=== PATIENT | male | born 1965 | race Caucasian/White ===

== ENCOUNTER 2019-05-05 11:55 | Inpatient (IN) | payer MEDICARE, MEDICAID ==
[~2019-05-05 11:55] MED LIST: Acetaminophen TAB* 325 MG PO ONE; Buffered Lidocaine 1% SYRIN* 1 ML/SYRINGE INTRADERM ONE; Lactated Ringers 1000 ML Bag* 1,000 ML IV SCH
[2019-05-05] MEDS ORDERED: Clindamycin 900 MG/D5W BAG(*) 900 MG/50 ML BAG IVPB ONE (12:50)
[2019-05-05] MEDS ORDERED: Acetaminophen TAB* 325 MG ONE (12:50)
[2019-05-05] MEDS ORDERED: fentaNYL* 50 MCG/ML 5 ML VIAL (250 MCG VIAL) ONE (13:20)
[2019-05-05] MEDS ORDERED: Midazolam* 1 MG/ML 2 ML VIAL (2 MG) ONE (13:20)
[2019-05-05] MEDS ORDERED: Propofol* 10 MG/ML 20 ML BTL ONE (13:21)
[2019-05-05] MEDS ORDERED: Lidocaine 2% PF * 5 ML VIAL ONE (13:21)
[2019-05-05] MEDS ORDERED: Rocuronium* 10 MG/ML VIAL ONE (13:28)
[2019-05-05] MEDS ORDERED: Naloxone* 0.4 MG/ML 1 ML VIAL IV PRN (13:33)
[2019-05-05] MEDS ORDERED: PROCHLORPERAZINE INJ 5 MG/ML 2 ML VIAL IV PRN (13:33)
[2019-05-05] MEDS ORDERED: DiMENhydriNATE IV* 50 MG/ML VIAL IV PUSH PRN (13:33)
[2019-05-05] MEDS ORDERED: oxyCODONE TAB* 5 MG TAB PO PRN (13:33)
[2019-05-05] MEDS ORDERED: diPHENhydraMINE IV* 50 MG/ML 1 ml VIAL (BENADRYL) IV PRN ×2 (13:33→16:17)
[2019-05-05] MEDS ORDERED: ROPIVACAINE 5 MG/ML 30 ML BTL (0.5%) ONE (14:08)
[2019-05-05] MEDS ORDERED: Hydrocortisone INJ* 100 MG/2 ML VIAL (in pyxis) ONE (14:57)
[2019-05-05] MEDS ORDERED: EPHEDrine (Pressors)* 50 MG/ML VIAL ONE (15:18)
[2019-05-05] MEDS ORDERED: Glycopyrrolate IV* 0.2 MG/ML 1 ML VIAL ONE (15:54)
[2019-05-05] MEDS ORDERED: Neostigmine Methylsulfate* 3 MG/3 ML SYRINGE ONE (15:54)
[2019-05-05] MEDS ORDERED: Ondansetron INJ* 2 MG/ML VIAL ONE (15:54)
[2019-05-05] MEDS ORDERED: Ondansetron INJ* 2 MG/ML VIAL IV PRN (16:17)
[2019-05-05] MEDS ORDERED: Polyethylene Glycol 3350* 17 GM PACKET PO PRN (16:17)
[2019-05-05] MEDS ORDERED: oxyCODONE/Acetamin 5/325 MG* TAB PO PRN (16:17)
[2019-05-05] MEDS ORDERED: diPHENhydraMINE PO* 25 MG PO PRN (16:17)
[2019-05-05] MEDS ORDERED: HYDROmorphone INJ1* 1 MG/ML SYRINGE ONE (16:17)
[2019-05-05] MEDS ORDERED: Magnesium Hydroxide LIQ* 30 ML UDC PO PRN (16:17)
[2019-05-05] MEDS ORDERED: Ondansetron ODT TAB* 4 MG PO PRN (16:17)
[2019-05-05] MEDS: HYDROmorphone INJ1* 1 MG/ML SYRINGE IV PRN ×5 (16:19→16:47)
[2019-05-05] MEDS ORDERED: Cetirizine* 10 MG TAB PO PRN (16:31)
[2019-05-05] MEDS ORDERED: Albuterol HFA INHALER* 8 gm MDI INH PRN (16:31)
[2019-05-05] MEDS ORDERED: Ketorolac INJ* 30 MG/ML 1 ML VIAL ONE (16:34)
[2019-05-05] MEDS ORDERED: Ketorolac INJ* 15 MG/ML 1 ML VIAL IV PUSH ONE (17:00)
[2019-05-05] MEDS: Lactated Ringers 1000 ML Bag* 1,000 ML IV SCH (17:42)
[2019-05-05] MEDS: traMADol TAB* 50 MG PO PRN (17:52)
[2019-05-05] MEDS: clonazePAM TAB(*) 0.5 MG PO SCH (19:34)
[2019-05-05] MEDS: Docusate CAP* 100 MG PO SCH (19:34)
[2019-05-05] MEDS: oxyCODONE/Acetamin 5/325 MG* TAB PO PRN ×2 (19:34→23:52)
[2019-05-05] MEDS: Magnesium Hydroxide LIQ* 30 ML UDC PO SCH (19:35)
[2019-05-05] MEDS: Acetaminophen TAB* 325 MG PO SCH (21:47)
[2019-05-05] MEDS: Clindamycin 600 MG/D5W BAG(*) 600 MG/50 ML BAG IV SCH (22:21)
--- NOTE | 2019-05-05 23:17 | OP ---
DATE OF OPERATION: 05/05/19 - ROOM #341 DATE OF : 63 SURGEON: Memo Sanchez MD RADIOTELEGRAPH OPERATOR: LAQUITA Swartz. A physician assistant gm of content & delivery was required for the length of the procedure for assistance with patient positioning, retraction, instrumentation, and closure. ANESTHESIOLOGIST: Dr. Alyce Flores. ANESTHESIA: General anesthesia, popliteal block regional anesthesia. PRE-OP DIAGNOSIS: Right Achilles tendon rupture, subacute. POST-OP DIAGNOSIS: Right Achilles tendon rupture, subacute. OPERATIVE PROCEDURE: 1. Right open Achilles tendon repair. 2. Right plantaris tendon tenodesis. POSITIONING: Prone. ANTIBIOTICS: Clindamycin 900 mg IV. AUMD-WT-SNCX TIME: 60 minutes. TOURNIQUET TIME: 69 minutes at 300 mmHg, right proximal thigh. SPECIMEN: None. COMPLICATIONS: None. IMPLANTS: None. ESTIMATED BLOOD LOSS: Minimal. INDICATIONS FOR PROCEDURE: The patient is a 53-year-old man with ankylosing spondylitis who unfortunately has recently sustained bilateral Achilles tendon ruptures. The patient had a left Achilles tendon rupture on 03/20/19. He underwent surgery for that injury on 04/06/19. The patient then injured himself on 04/10/19 injuring his right ankle, contralateral. I saw him in clinic on 04/12/19. I suspected an Achilles tendon rupture. This was confirmed with advanced imaging. I wanted to wait to do this procedure until the patient was weightbearing through the left lower extremity, which is approximately 4 weeks postoperatively. The patient has been in a boot and presents for right ankle surgery today. Discussed risks and potential complications including wound breakdown, wound infection, tendon re-rupture. DESCRIPTION OF PROCEDURE: In preoperative holding, the patient signed a written consent. Operative extremity was marked in preoperative holding. The patient's nonoperative left ankle was placed in a toe boot, or maintained in that. The patient had a popliteal nerve block, regional done by Anesthesia in the preoperative holding. The patient was taken back to the operating room and placed supine on the stretcher. The patient was sedated and intubated. The patient was converted to a prone position on the operating room table. The patient's axillae were both free. Much padding underneath the patient along the length of the body. Tourniquet was placed on the right proximal thigh. The right lower extremity was prepped and draped. Surgical time-out performed. Esmarch was planned and the tourniquet was elevated. I felt at the point of the Achilles tendon rupture through the skin. I made a longitudinal incision, approximately 10 cm long, just along the medial aspect of the Achilles tendon. I dissected down to the peritenon. Incised the peritenon longitudinally. I dissected to the Achilles tendon rupture site. Interestingly and not surprisingly, it had started to heal. There was much scar tissue. It was essentially healing in a lengthened position with the ends of the Achilles retracted significantly and scar tissue interposed. I debrided some scar tissue. I determined the appropriate length of the tendon to connect the two ends of tissue and decided that this could be brought together in approximately 20 degrees of plantar flexion. I placed Krackow stitches using FiberWire #2 suture. I tied 2 knots bringing together these sutures. This left the tiniest of gaps between the tendon, but I did not want to tighten any more for fear of some difficulty with closure. I used a wrap of muscle and scar tissue and wrapped that around that small gap, which filled it and nicely made it tubularized as well. I used a free needle to place horizontal mattress stitches using each of those FiberWire #2 suture pairs, which had the effect of bearing the knots. I cut those sutures. I placed approximately 5 horizontal mattress stitches using Vicryl 0 suture as well, which helped to further tubularize and supplement the repair. It was nice and sound with the plantar flexed ankle position of approximately 20 degrees. Plantaris tendon was present. I decided to enhance the repair with a tenodesis. I tried a tendon stripper, but it did not strip proximally. So, instead I cut it with a knife about the mid lower leg. I used a Kurt mosquito to pass the tendon through the proximal and then distal across the repair site to supplement the repair. With this plantaris tendon in place, I sutured in place with stitches using Vicryl 0 suture. Irrigation. I closed the paratenon with several running stitches using Vicryl 2-0 suture. Much of the paratenon was closed over the Achilles tendon. I closed the subcutaneous tissue layer with buried simple stitches using Vicryl 3-0 suture. I closed the skin with a running stitch using nylon 3-0 suture. Umangofshant, 4x4s, ABD, sterile Webril. Additional Webril. A splint was placed with a posterior slab and then a sugar tong. Overwrapped with an Kavon bandage. Tourniquet was then dropped. The patient was converted to the supine position. The patient was flipped on to the stretcher and then transferred to the PACU. DISPOSITION: The patient will need to be admitted postoperatively. The patient is nonweightbearing right lower extremity currently. He is partial weightbearing left lower extremity in a walking boot with wedges under the heel , but he is not comfortable at bearing much weight on that left lower extremity. He lives alone and there are multiple steps and his family and social support are not around either. The patient will be admitted for pain control, safety, physical therapy. We will determine disposition, although the patient will likely require rehabilitation placement. The patient will follow up with me several weeks postoperative for a wound check and conversion to a cast. [id number]/[facility] #: [id number] TRISTIAN
[2019-05-06] MEDS: traZODone TAB* 50 MG TAB PO PRN (00:53)
[2019-05-06 01:15] LABS: Urine Appearance Cloudy; Urine Bilirubin Negative (Negative); Urine Blood 2+ (Negative); Urine Color Yellow; Urine Glucose Negative (Negative); Urine Ketones Negative (Negative); Urine Nitrite Negative (Negative); Urine Protein Negative (Negative); Urine Specific Gravity 1.011 (1.010-1.030); Urine Urobilinogen Negative (Negative)
[2019-05-06 01:23] LABS: Urine Bacteria Absent (Absent); Urine Red Blood Cell 2+(6-10/hpf) (Absent); Urine White Blood Cell Absent (Absent)
[2019-05-06] MEDS: Cyclobenzaprine TAB* 10 MG PO PRN ×2 (03:38→20:21)
[2019-05-06] MEDS: traMADol TAB* 50 MG PO PRN ×4 (03:40→20:20)
[2019-05-06] MEDS: oxyCODONE/Acetamin 5/325 MG* TAB PO PRN ×5 (04:02→21:30)
[2019-05-06] MEDS: Lactated Ringers 1000 ML Bag* 1,000 ML IV SCH (04:48)
[2019-05-06] MEDS: Acetaminophen TAB* 325 MG PO SCH ×3 (05:56→21:31)
[2019-05-06 07:08] LABS: Hematocrit 37 % (42-52); Hemoglobin 13.2 g/dL (14.0-18.0); Mean Platelet Volume 7.3 fL (7.4-10.4); Platelet Count 227 10^3/uL (150-450)
[2019-05-06 07:29] LABS: BUN/Creatinine Ratio 10.3 (8-20); Calcium 8.6 mg/dL (8.6-10.3); EGFR African American 87.1 (>60); Potassium 3.6 mmol/L (3.5-5.0)
[2019-05-06] MEDS ORDERED: Vitamin THERAPEUTIC TAB PO SCH (09:00)
[2019-05-06] MEDS: Clindamycin 600 MG/D5W BAG(*) 600 MG/50 ML BAG IV SCH ×2 (09:18→14:15)
[2019-05-06] MEDS: clonazePAM TAB(*) 0.5 MG PO SCH ×3 (09:20→20:21)
[2019-05-06] MEDS: Docusate CAP* 100 MG PO SCH ×2 (09:20→20:21)
[2019-05-06] MEDS: Magnesium Hydroxide LIQ* 30 ML UDC PO SCH ×2 (09:20→20:22)
[2019-05-06] MEDS: DULoxetine DR CAP* 20 MG CAP.DR PO SCH (09:20)
[2019-05-06] MEDS: Multivitamins/Minerals TAB PO SCH (09:21)
[2019-05-06] MEDS: DULoxetine DR CAP* 30 MG CAP.DR PO SCH (09:21)
--- NOTE | 2019-05-06 10:13 | PN ---
Progress Note - Progress Note Date of Service: 05/06/19 SOAP: Subjective: []Pt seen and examined at bedside. He feels well without RLE pain. Denies CP, SOB, dizziness, nausea. Due to urinary retention required straight cath overnight and had not urinate by 10 am. Repeat bladder scan was done showing 999ml. Patient is not uncomfortable he has no abdominal pain. Has no history of BPH but after colectomy had urinary retention requiring him to go home with a leg bag. Dr Lucia removed the catheter about a week later with no residual urinary problems thereafter. He was started on LR 500 ml bolus, flomax 0.4mg and urinate 350cc. Objective: []Gen: NAD RLE: Splint CDI, able to f.e MTPs and sensation intact to light touch distally LLE: raymond wrap in place, f/e MTPs intact, NVI distally. Calf supple and nontender Assessment: [] Right Achilles tendon rupture, subacute. POD 1 sp 1. Right open Achilles tendon repair. 2. Right plantaris tendon tenodesis. Plan: []nonweightbearing RLE, keep splint CDI partial weightbearing left lower extremity in a walking boot with wedges under the heel follow up with Dr Sanhcez several weeks postoperative for a wound check and conversion to a cast Lovenox 40 mg qd Patient is asymptomatic and is now urinating. Continue PO fluids, flomax. He is unable to ambulate due to BL LE restriction. If he is having trouble urinating nursing will alert me so that I can contact urology for recommendation but suspect he'd require xie placement if this continues Vital Signs Temp 97.7 F 05/06/19 07:57 Pulse 94 05/06/19 07:57 Resp 16 05/06/19 09:21 BP 145/92 05/06/19 07:57 Pulse Ox 100 05/06/19 07:57 Intake & Output 05/05/19 05/06/19 05/06/19 18:59 06:59 18:59 Intake Total 150 2010 Output Total 750 350 Balance 150 1260 -350 Weight 190 lb Intake: IV Fluids 150 1030 ABX - CLINDAMYCIN 50 LR 980 NS 100ML, Clindamycin 150 600MG Oral 980 Output: Urine 0 350 Straight Cath 750 Laboratory Last Values Hgb 13.2 g/dL (14.0-18.0) L 05/06/19 06:39 Hct 37 % (42-52) L 05/06/19 06:39 Plt Count 227 10^3/uL (150-450) 05/06/19 06:39 MPV 7.3 fL (7.4-10.4) L 05/06/19 06:39 Sodium 139 mmol/L (135-145) 05/06/19 06:39 Potassium 3.6 mmol/L (3.5-5.0) 05/06/19 06:39 Chloride 103 mmol/L (101-111) 05/06/19 06:39 Carbon Dioxide 31 mmol/L (22-32) 05/06/19 06:39 Anion Gap 5 mmol/L (2-11) 05/06/19 06:39 BUN 11 mg/dL (6-24) 05/06/19 06:39 Creatinine 1.07 mg/dL (0.67-1.17) 05/06/19 06:39 Est GFR ( Amer) 87.1 (>60) 05/06/19 06:39 Est GFR (Non-Af Amer) 72.0 (>60) 05/06/19 06:39 BUN/Creatinine Ratio 10.3 (8-20) 05/06/19 06:39 Glucose 103 mg/dL (70-100) H 05/06/19 06:39 Calcium 8.6 mg/dL (8.6-10.3) 05/06/19 06:39 Urine Color Yellow 05/06/19 00:09 Urine Appearance Cloudy 05/06/19 00:09 Urine pH 5.0 (5-9) 05/06/19 00:09 Ur Specific [place] 1.011 (1.010-1.030) 05/06/19 00:09 Urine Protein Negative (Negative) 05/06/19 00:09 Urine Ketones Negative (Negative) 05/06/19 00:09 Urine Blood 2+ (Negative) A 05/06/19 00:09 Urine Nitrate Negative (Negative) 05/06/19 00:09 Urine Bilirubin Negative (Negative) 05/06/19 00:09 Urine Urobilinogen Negative (Negative) 05/06/19 00:09 Ur Leukocyte Esterase Negative (Negative) 05/06/19 00:09 Urine WBC (Auto) Absent (Absent) 05/06/19 00:09 Urine RBC (Auto) 2+(6-10/hpf) (Absent) A 05/06/19 00:09 Urine Bacteria Absent (Absent) 05/06/19 00:09 Urine Glucose Negative (Negative) 05/06/19 00:09
[2019-05-06] MEDS: Tamsulosin CAP* 0.4 MG PO SCH (11:50)
[2019-05-06] MEDS: Enoxaparin(*) 40 MG/0.4 ML SYR SUBCUT SCH (11:59)
[2019-05-06] MEDS: Morphine INJ* 2 MG/ML 1 ML SYRINGE (TWO MG - NEW SYRINGE VERSION) IV PRN (23:33)
[2019-05-07] MEDS: oxyCODONE/Acetamin 5/325 MG* TAB PO PRN ×2 (03:28→08:51)
[2019-05-07] MEDS: Cyclobenzaprine TAB* 10 MG PO PRN (03:28)
[2019-05-07] MEDS: Morphine INJ* 2 MG/ML 1 ML SYRINGE (TWO MG - NEW SYRINGE VERSION) IV PRN ×5 (04:15→22:04)
[2019-05-07 06:10] LABS: Hematocrit 37 % (42-52); Hemoglobin 13.1 g/dL (14.0-18.0); Mean Platelet Volume 7.2 fL (7.4-10.4); Platelet Count 219 10^3/uL (150-450)
[2019-05-07] MEDS: Acetaminophen TAB* 325 MG PO SCH ×3 (06:34→22:14)
[2019-05-07] MEDS: Tamsulosin CAP* 0.4 MG PO SCH (08:51)
[2019-05-07] MEDS: clonazePAM TAB(*) 0.5 MG PO SCH ×3 (08:51→21:01)
[2019-05-07] MEDS: DULoxetine DR CAP* 20 MG CAP.DR PO SCH (08:52)
[2019-05-07] MEDS: DULoxetine DR CAP* 30 MG CAP.DR PO SCH (08:52)
[2019-05-07] MEDS: Multivitamins/Minerals TAB PO SCH (08:52)
[2019-05-07] MEDS: Docusate CAP* 100 MG PO SCH ×2 (08:52→19:49)
[2019-05-07] MEDS: Magnesium Hydroxide LIQ* 30 ML UDC PO SCH ×2 (08:54→19:49)
--- NOTE | 2019-05-07 10:33 | PN ---
Progress Note - Progress Note Date of Service: 05/07/19 SOAP: Subjective: [Pt was seen sitting up in bed. The pt states that he is doing well. Complains of pain in the right leg that is manageable. Denies any chest pain or SOB. No nausea or vomiting. ] Objective: [General: pt is alert and oriented x3. NAD MSK, RLE: Dressing is c/d/i. Able to wiggle toes, full sensation in toes. Less than 2 second cap refill in all toes. ] Vital Signs Temp 98.7 F 05/07/19 11:00 Pulse 110 05/07/19 11:00 Resp 18 05/07/19 11:11 BP 143/95 05/07/19 11:00 Pulse Ox 97 05/07/19 11:00 Intake & Output 05/06/19 05/07/19 05/07/19 18:59 06:59 18:59 Intake Total 1215 1000 240 Output Total 550 1900 Balance 665 -900 240 Intake: IV Fluids 495 ABX - CLINDAMYCIN 55 LR 440 Oral 720 1000 240 Output: Urine 550 350 Straight Cath 1550 Assessment: ight Achilles tendon rupture, subacute. POD 2 sp 1. Right open Achilles tendon repair. 2. Right plantaris tendon tenodesis. Plan: []nonweightbearing RLE, keep splint CDI partial weightbearing left lower extremity in a walking boot with wedges under the heel follow up with Dr Sanchez several weeks postoperative for a wound check and conversion to a cast Lovenox 40 mg qd Awaiting placement at [facility]. Once offer is accepted will [place].
[2019-05-07] MEDS: HYDROmorphone TAB* 2 MG PO PRN ×3 (11:08→23:45)
[2019-05-07] MEDS: Enoxaparin(*) 40 MG/0.4 ML SYR SUBCUT SCH (13:17)
[2019-05-07] MEDS: traMADol TAB* 50 MG PO PRN ×2 (13:18→19:40)
[2019-05-07 14:16] LABS: Urine Appearance Cloudy; Urine Bilirubin Negative (Negative); Urine Blood 1+ (Negative); Urine Color Yellow; Urine Glucose Negative (Negative); Urine Ketones Negative (Negative); Urine Nitrite Negative (Negative); Urine Protein Negative (Negative); Urine Specific Gravity 1.014 (1.010-1.030); Urine Urobilinogen Negative (Negative)
[2019-05-07 14:29] LABS: Urine Bacteria Absent (Absent); Urine Red Blood Cell 3+(>10/hpf) (Absent); Urine White Blood Cell Trace(0-5/hpf) (Absent)
[2019-05-08] MEDS: traMADol TAB* 50 MG PO PRN ×3 (03:35→15:46)
[2019-05-08] MEDS: Morphine INJ* 2 MG/ML 1 ML SYRINGE (TWO MG - NEW SYRINGE VERSION) IV PRN ×6 (03:35→21:43)
[2019-05-08 05:31] LABS: Hematocrit 39 % (42-52); Hemoglobin 13.6 g/dL (14.0-18.0); Mean Platelet Volume 7.6 fL (7.4-10.4); Platelet Count 247 10^3/uL (150-450)
[2019-05-08] MEDS: Acetaminophen TAB* 325 MG PO SCH ×3 (05:57→21:48)
[2019-05-08] MEDS: HYDROmorphone TAB* 2 MG PO PRN ×3 (05:58→18:31)
[2019-05-08] MEDS: Magnesium Hydroxide LIQ* 30 ML UDC PO SCH ×2 (09:34→20:20)
[2019-05-08] MEDS: Cyclobenzaprine TAB* 10 MG PO PRN ×2 (09:35→15:41)
[2019-05-08] MEDS: clonazePAM TAB(*) 0.5 MG PO SCH ×3 (09:35→20:20)
[2019-05-08] MEDS: DULoxetine DR CAP* 30 MG CAP.DR PO SCH (09:35)
[2019-05-08] MEDS: Multivitamins/Minerals TAB PO SCH (09:35)
[2019-05-08] MEDS: DULoxetine DR CAP* 20 MG CAP.DR PO SCH (09:35)
[2019-05-08] MEDS: Tamsulosin CAP* 0.4 MG PO SCH (09:36)
[2019-05-08] MEDS: Docusate CAP* 100 MG PO SCH ×2 (09:36→20:20)
--- NOTE | 2019-05-08 09:41 | PN ---
Progress Note - Progress Note Date of Service: 05/08/19 SOAP: Subjective: Pain better bilateral ankles. Dispo pending. He is not very mobile. He has only been able to walk to the other bed in the room. He is non weight bearing right lower extremity. He is weight bearing as tolerated left lower extremity only while in a boot with wedges that are in the boot. Urology was curbsided by our team for urine retention and a catheter placed. He will follow up with urology as an outpatient. Objective: RLE: - Splint in place, nvid LLE: - He can actively dorsiflex to about 0-5 degrees of plantarflexion, close to plantigrade - Dressing c/d/i Selected Entries 05/08/19 08:05 Temperature 97.9 F Pulse Rate 80 Respiratory 12 Rate Blood Pressure 146/92 (mmHg) O2 Sat by Pulse 97 Oximetry Laboratory Tests 05/07/19 05/08/19 13:40 05:08 Hct 39 L Urine Nitrate Negative Ur Leukocyte Esterase Negative Urine WBC (Auto) Trace(0-5/hpf) Assessment: POD 3 right Achilles tendon repair s/p left Achilles tendon repair on 04/06/19 Plan: - Physical therapy for left ankle, restrictions as mentioned above - Right ankle in a splint - Dispo- placement planning. Patient certainly has functional limitations and PT needs.
[2019-05-08] MEDS: Enoxaparin(*) 40 MG/0.4 ML SYR SUBCUT SCH (11:49)
--- NOTE | 2019-05-08 12:23 | PN ---
Subjective Date of Service: 05/08/19 Objective Active Medications: Acetaminophen (Tylenol Tab*) 975 mg PO Q8HR CB Albuterol (Ventolin Hfa Inhaler*) 2 puff INH BID PRN Bisacodyl (Dulcolax Supp*) 10 mg AK DAILY PRN Cetirizine HCl (Zyrtec*) 10 mg PO ONCE PRN Clonazepam (Klonopin Tab(*)) 0.5 mg PO TID CB Cyclobenzaprine HCl (Flexeril Tab*) 10 mg PO Q6H PRN Diphenhydramine HCl (Benadryl Iv*) 25 mg IV Q6H PRN Diphenhydramine HCl (Benadryl Po*) 25 mg PO Q6H PRN Docusate Sodium (Colace Cap*) 100 mg PO BID CB Duloxetine HCl (Cymbalta Cap*) 20 mg PO DAILY CB Duloxetine HCl (Cymbalta Cap*) 30 mg PO DAILY CB Enoxaparin Sodium (Lovenox(*)) 40 mg SUBCUT Q24H CB Hydromorphone HCl (Dilaudid Tab*) 2 mg PO Q6H PRN Lactated Ringer's (Lactated Ringers 1000 Ml Bag*) 1,000 mls @ 100 mls/hr IV PER RATE CB Lactulose (Lactulose*) 30 ml PO BID PRN Magnesium Hydroxide (Milk Of Magnesia Liq*) 30 ml PO BID CB Magnesium Hydroxide (Milk Of Magnesia Liq*) 30 ml PO Q6H PRN Morphine Sulfate (Morphine Inj (Syringe))*) 2 mg IV Q4H PRN Multivitamins/Minerals (Theragran/Minerals Tab*) 1 tab PO QAM CB Ondansetron HCl (Zofran Inj*) 4 mg IV Q6H PRN Ondansetron HCl (Zofran Odt Tab*) 4 mg PO Q6H PRN Polyethylene Glycol/Electrolytes (Miralax*) 17 gm PO DAILY PRN Tamsulosin HCl (Flomax Cap*) 0.4 mg PO DAILY CB Tramadol HCl (Ultram*) 50 mg PO Q6HR PRN Trazodone HCl (Desyrel Tab*) 25 mg PO BEDTIME PRN Vital Signs: Temp Pulse Resp BP Pulse Ox 98.4 F 102 18 139/100 99 05/08/19 12:03 05/08/19 12:03 05/08/19 12:03 05/08/19 12:03 05/08/19 12:03 Oxygen Devices in Use Now: None Result Diagrams: 05/08/19 05:08 05/06/19 06:39 Assess/Plan/Problems-Billing Assessment: Mr. Julien is a 53 yo M with a PMH of asthma who was admitted on for repair of right achilles tendon rupture, Hospital Medicine has been consulted regarding hypertension. - Patient Problems (1) Hypertension Comment: - SBP 130, DBP 100s - Start amlodipine. (2) Achilles rupture, right Comment: - Management per ortho. - Pain meds prn. (3) Fall Current Visit: No Status: Acute Priority: High Comment: - seen by PT today who stated the patient did stairs w/o difficulty and reports pts has no rehab needs. He has been ambulating around unit independently w/o difficulty w/o the use of a walker. I do not think the patient needs a rolling walker as he is independent ambulating showing good strength, and stability. Pt reports he refuses to use a walker as he feels steady on his feet. (4) Full code status Current Visit: No Status: Acute Priority: High Code(s): Z78.9 - OTHER SPECIFIED HEALTH STATUS SNOMED Code(s): 612963064 (5) Gait instability Current Visit: No Status: Acute Code(s): R26.81 - UNSTEADINESS ON FEET SNOMED Code(s): 406740088 Comment: MRI lumbar spine negative. PT eval finds patient to be independent. (6) Neutropenia Current Visit: No Status: Acute Priority: High Code(s): D70.9 - NEUTROPENIA, UNSPECIFIED SNOMED Code(s): 422945872 Comment: Resolved. (7) Numbness and tingling of both legs Current Visit: No Status: Acute Priority: High Code(s): R20.2 - PARESTHESIA OF SKIN SNOMED Code(s): 312865661 Comment: reports much improvement Appreciate neurology input. MRI of cervical and thoracic spine shows some narrowing but not significant stenosis. Continue PT and ambulation. (8) Urinary retention Current Visit: No Status: Acute Priority: High Code(s): R33.9 - RETENTION OF URINE, UNSPECIFIED SNOMED Code(s): 479015324 Comment: Continue xie, will need outpatient follow up with urology. Nursing staff in ED report resistance on placing xie, suspect BPH. MRI lumbar spine negative. (9) Anxiety Current Visit: No Status: Chronic Code(s): F41.9 - ANXIETY DISORDER, UNSPECIFIED SNOMED Code(s): 24918470 Comment: Continue Klonopin at decreased dose. Appreciate Psych input. Continue remainder of current medications and f/u at discharge. (10) DVT prophylaxis Comment: SQ Heparin
[2019-05-08] MEDS: amLODIPine TAB* 5 MG PO SCH (12:46)
--- NOTE | 2019-05-08 16:15 | CONS ---
HOSPITAL MEDICINE CONSULTATION REPORT: DATE OF CONSULT: 05/08/19 ATTENDING PHYSICIAN: Dr. Memo Sanchez. CONSULTING PHYSICIAN: Dr. Radha Perez (dictation provided by Halima Baig NP) . REASON FOR CONSULT: Medical co-management in a patient with high blood pressure. HISTORY OF PRESENT ILLNESS: Mr. Julien is a 53-year-old male who developed bilateral heel pain and was assessed by Dr. Sanchez outpatient on 03/22/19 and found to have left Achilles tendon rupture and bilateral recent non-insertional Achilles tendinitis. He was recommended that he consider surgery and he underwent surgery with Dr. Sanchez. The patient states he has been doing well postoperatively. He has no complaints. It has been noted that he has elevated blood pressure. His blood pressure was 146/98 on arrival and his diastolic blood pressure has remained elevated, today it is 150/100, and Hospital Medicine was called regarding management. The patient states that he has noted that his blood pressure has been trending upwards over the past year, but that no medications have been started outpatient. Of note, patient has had some urinary retention post-operative (has history of similar issues in the past) and xie was placed by urology. PAST MEDICAL HISTORY: 1. Ankylosing spondylitis. 2. Mild asthma. 3. Seasonal allergies. 4. Atopic dermatitis. 5. Partial bowel resection with ileostomy s/p reversal for diverticulitis and abscess. 6. Sushma fundoplication. 7. Fibromyalgia 8. Anxiety 9. Depression. MEDICATIONS OUTPATIENT: 1. Trazodone 150 mg p.o. at bedtime. 2. Oxycodone with acetaminophen 5/325 one to two p.o. q.4 hours p.r.n. pain. 3. Clonazepam 0.5 mg p.o. t.i.d. 4. Cosentyx 150 mg subcutaneously once monthly. 5. Multivitamin with minerals 1 tab p.o. q.a.m. 6. Levocetirizine 10 mg p.o. as needed. 7. Ibuprofen p.r.n. 8. Duloxetine DR, maybe 50 mg p.o. daily. 9. Albuterol inhaler 2 puffs inhaled b.i.d. p.r.n. ALLERGIES: To PENICILLINS and METOCLOPRAMIDE. FAMILY HISTORY: Reviewed and noncontributory. SOCIAL HISTORY: No report of significant alcohol use or tobacco use. The patient states his parents will be the healthcare proxies. REVIEW OF SYSTEMS: A 14-point review of systems was completed with Mr. Julien and all those not mentioned above were negative. PHYSICAL EXAM: Vital Signs: Temperature 98.4, pulse rate 80, respiratory rate 18, O2 saturation 99% on room air, blood pressure 139/100. General: Mr. Julien is sitting up in the bed. He is in no acute distress. Neuro: He is alert. He is oriented x3. He moves all extremities equally. There is no facial asymmetry or focal weakness. Extraocular movements are intact. Heart: S1, S2. No murmur, rub, or gallop and regular. Lungs are clear to auscultation bilaterally with no accessory muscle use and good aeration. The abdomen is soft , nontender with bowel sounds positive x4. Extremities: No cyanosis or edema. Skin is intact. Surgical wound site not assessed. ASSESSMENT AND PLAN: Mr. Julien is a 53-year-old male with past medical history of ankylosing spondylitis, who presented for surgical repair of ruptured Achilles tendon with Dr. Sanchez and in the postoperative period has been noted to have hypertension. Our recommendations are as follows: 1. Hypertension. The patient's blood pressure has been elevated since his arrival. Plan to start amlodipine 5 mg p.o. daily and monitor his blood pressure and adjust as needed. 2. History of recent surgery. Management per Ortho. 3. Urinary Retention. Will need to follow up with urology outpatient. 4. DVT prophylaxis: Per Ortho. 5. Code status is full code. TIME SPENT: Approximately 60 minutes was spent on the consultation of this patient, more than half the time spent with the patient at the bedside reviewing the events leading up to and during this hospitalization, performing the physical examination, and reviewing my plan of care. HALIMA BAIG NP [id number]/[facility] #: [id number] TRISTIAN
[2019-05-08] MEDS: traZODone TAB* 50 MG TAB PO PRN (21:43)
[2019-05-09] MEDS: HYDROmorphone TAB* 2 MG PO PRN ×5 (00:53→21:27)
[2019-05-09] MEDS: Morphine INJ* 2 MG/ML 1 ML SYRINGE (TWO MG - NEW SYRINGE VERSION) IV PRN ×3 (03:20→14:44)
[2019-05-09] MEDS: Acetaminophen TAB* 325 MG PO SCH ×3 (06:13→21:27)
[2019-05-09] MEDS: DULoxetine DR CAP* 30 MG CAP.DR PO SCH (07:14)
[2019-05-09] MEDS: DULoxetine DR CAP* 20 MG CAP.DR PO SCH (07:14)
[2019-05-09] MEDS: Tamsulosin CAP* 0.4 MG PO SCH (07:14)
[2019-05-09] MEDS: Docusate CAP* 100 MG PO SCH ×2 (07:14→19:57)
[2019-05-09] MEDS: Multivitamins/Minerals TAB PO SCH (07:14)
[2019-05-09] MEDS: clonazePAM TAB(*) 0.5 MG PO SCH ×3 (07:14→19:59)
[2019-05-09] MEDS: amLODIPine TAB* 5 MG PO SCH (07:16)
[2019-05-09] MEDS: Magnesium Hydroxide LIQ* 30 ML UDC PO SCH (07:21)
--- NOTE | 2019-05-09 08:43 | PN ---
Progress Note - Progress Note Date of Service: 05/09/19 SOAP: Subjective: [Patient seen and examined in bed. Patient states he is feeling well. Pain is controlled with medications. He denies CP, SOB, f/c or calf pain. Has been doing PT, states it is difficult to get around without help. Objective: RLE: - Splint in place, nvid LLE: - He can actively dorsiflex to about 0-5 degrees of plantarflexion, close to plantigrade - Dressing c/d/i Assessment: POD 4 right Achilles tendon repair s/p left Achilles tendon repair on 04/06/19 Plan: - Physical therapy for both ankles. RLE NWB. LLE PWB in cam boot with wedges. - Right ankle in a splint - Hosp started him BP med - Dispo- placement planning. Likely tomorrow. Vital Signs Temp Pulse Resp BP Pulse Ox 98.4 F 86 16 133/75 96 05/09/19 07:10 05/09/19 07:10 05/09/19 07:32 05/09/19 07:10 05/09/19 07:32 Laboratory Last Values Hgb 13.6 g/dL (14.0-18.0) L 05/08/19 05:08 Hct 39 % (42-52) L 05/08/19 05:08 Plt Count 247 10^3/uL (150-450) 05/08/19 05:08 MPV 7.6 fL (7.4-10.4) 05/08/19 05:08 Sodium 139 mmol/L (135-145) 05/06/19 06:39 Potassium 3.6 mmol/L (3.5-5.0) 05/06/19 06:39 Chloride 103 mmol/L (101-111) 05/06/19 06:39 Carbon Dioxide 31 mmol/L (22-32) 05/06/19 06:39 Anion Gap 5 mmol/L (2-11) 05/06/19 06:39 BUN 11 mg/dL (6-24) 05/06/19 06:39 Creatinine 1.07 mg/dL (0.67-1.17) 05/06/19 06:39 Est GFR ( Amer) 87.1 (>60) 05/06/19 06:39 Est GFR (Non-Af Amer) 72.0 (>60) 05/06/19 06:39 BUN/Creatinine Ratio 10.3 (8-20) 05/06/19 06:39 Glucose 103 mg/dL (70-100) H 05/06/19 06:39 Calcium 8.6 mg/dL (8.6-10.3) 05/06/19 06:39 Urine Color Yellow 05/07/19 13:40 Urine Appearance Cloudy 05/07/19 13:40 Urine pH 7.0 (5-9) 05/07/19 13:40 Ur Specific [place] 1.014 (1.010-1.030) 05/07/19 13:40 Urine Protein Negative (Negative) 05/07/19 13:40 Urine Ketones Negative (Negative) 05/07/19 13:40 Urine Blood 1+ (Negative) A 05/07/19 13:40 Urine Nitrate Negative (Negative) 05/07/19 13:40 Urine Bilirubin Negative (Negative) 05/07/19 13:40 Urine Urobilinogen Negative (Negative) 05/07/19 13:40 Ur Leukocyte Esterase Negative (Negative) 05/07/19 13:40 Urine WBC (Auto) Trace(0-5/hpf) (Absent) 05/07/19 13:40 Urine RBC (Auto) 3+(>10/hpf) (Absent) A 05/07/19 13:40 Urine Bacteria Absent (Absent) 05/07/19 13:40 Urine Glucose Negative (Negative) 05/07/19 13:40
[2019-05-09] MEDS: Enoxaparin(*) 40 MG/0.4 ML SYR SUBCUT SCH (11:49)
--- NOTE | 2019-05-09 16:39 | PN ---
Subjective Date of Service: 05/09/19 Interval History: Received call from RN to discuss pain medications. Patient did not feel that PO dilaudid was covering pain and has been requesting IV morphine. In preparation for discharge to [facility] patient need to be able to have pain controlled with PO pain medications. Therefore, dilaudid frequency increased and IV morphine discontinued. Discussed plan with patient and he was agreeable. Patient lying in bed on assessment. Reports pain is a "6". Denies numbness/ tingling, cp, sob, [place], ringing in ears, dizziness, nausea, vomiting. Objective Active Medications: Acetaminophen (Tylenol Tab*) 975 mg PO Q8HR [facility] Last Admin: 05/09/19 13:14 Dose: 975 mg Albuterol (Ventolin Hfa Inhaler*) 2 puff INH BID PRN PRN Reason: WHEEZING Amlodipine Besylate (Norvasc Tab*) 5 mg PO DAILY [facility] Last Admin: 05/09/19 07:16 Dose: 5 mg Bisacodyl (Dulcolax Supp*) 10 mg MD DAILY PRN PRN Reason: CONSTIPATION Cetirizine HCl (Zyrtec*) 10 mg PO ONCE PRN PRN Reason: Allergy Symptoms Clonazepam (Klonopin Tab(*)) 0.5 mg PO TID [facility] Last Admin: 05/09/19 13:15 Dose: 0.5 mg Cyclobenzaprine HCl (Flexeril Tab*) 10 mg PO Q6H PRN PRN Reason: SPASMS Last Admin: 05/08/19 15:41 Dose: 10 mg Diphenhydramine HCl (Benadryl Iv*) 25 mg IV Q6H PRN PRN Reason: PRURITIS Diphenhydramine HCl (Benadryl Po*) 25 mg PO Q6H PRN PRN Reason: PRURITIS Docusate Sodium (Colace Cap*) 100 mg PO BID [facility] Last Admin: 05/09/19 07:14 Dose: 100 mg Duloxetine HCl (Cymbalta Cap*) 20 mg PO DAILY [facility] Last Admin: 05/09/19 07:14 Dose: 20 mg Duloxetine HCl (Cymbalta Cap*) 30 mg PO DAILY [facility] Last Admin: 05/09/19 07:14 Dose: 30 mg Enoxaparin Sodium (Lovenox(*)) 40 mg SUBCUT Q24H [facility] Last Admin: 05/09/19 11:49 Dose: 40 mg Hydromorphone HCl (Dilaudid Tab*) 2 mg PO Q4H PRN PRN Reason: PAIN - SEVERE Lactated Ringer's (Lactated Ringers 1000 Ml Bag*) 1,000 mls @ 100 mls/hr IV PER RATE [facility] Last Admin: 05/06/19 04:48 Dose: 100 mls/hr Lactulose (Lactulose*) 30 ml PO BID PRN PRN Reason: CONSTIPATION Magnesium Hydroxide (Milk Of Magnesia Liq*) 30 ml PO Q6H PRN PRN Reason: CONSTIPATION Multivitamins/Minerals (Theragran/Minerals Tab*) 1 tab PO QAM [facility] Last Admin: 05/09/19 07:14 Dose: 1 tab Ondansetron HCl (Zofran Inj*) 4 mg IV Q6H PRN PRN Reason: NAUSEA Ondansetron HCl (Zofran Odt Tab*) 4 mg PO Q6H PRN PRN Reason: NAUSEA Polyethylene Glycol/Electrolytes (Miralax*) 17 gm PO DAILY PRN PRN Reason: Constipation Tamsulosin HCl (Flomax Cap*) 0.4 mg PO DAILY [facility] Last Admin: 05/09/19 07:14 Dose: 0.4 mg Tramadol HCl (Ultram*) 50 mg PO Q6HR PRN PRN Reason: PAIN - MODERATE Last Admin: 05/08/19 15:46 Dose: 50 mg Trazodone HCl (Desyrel Tab*) 25 mg PO BEDTIME PRN PRN Reason: insomnia Last Admin: 05/08/19 21:43 Dose: 25 mg Vital Signs - 8 hr 05/09/19 05/09/19 05/09/19 09:10 09:40 10:35 Temperature Pulse Rate Respiratory 16 20 16 Rate Blood Pressure (mmHg) O2 Sat by Pulse Oximetry 05/09/19 05/09/19 05/09/19 11:58 13:15 14:44 Temperature 99 F Pulse Rate 108 Respiratory 16 16 16 Rate Blood Pressure 125/75 (mmHg) O2 Sat by Pulse 95 Oximetry 05/09/19 05/09/19 15:25 15:51 Temperature 98.4 F Pulse Rate 108 Respiratory 18 18 Rate Blood Pressure 125/72 (mmHg) O2 Sat by Pulse 96 Oximetry Oxygen Devices in Use Now: None Appearance: Comfortable, NAD Eyes: No Scleral Icterus Ears/Nose/Mouth/Throat: Clear Oropharnyx, Mucous Membranes Moist Neck: NL Appearance and Movements; NL JVP Respiratory: Symmetrical Chest Expansion and Respiratory Effort, Clear to Auscultation Cardiovascular: NL Sounds; No Murmurs; No JVD, RRR, No Edema Abdominal: NL Sounds; No Tenderness; No Distention Extremities: No Edema Skin: No Rash or Ulcers, - - Dressings CDI Neurological: Alert and Oriented x 3 Nutrition: Taking PO's Result Diagrams: 05/08/19 05:08 05/06/19 06:39 Additional Lab and Data: . Microbiology and Other Data: Microbiology 05/07/19 13:40 Urine Urine Culture - Final Assess/Plan/Problems-Billing Assessment: 53 yr old patient with pmh of ankylosing spondilitis, fibromyalgia, anxiety, depression; who is s/p achillis rupture repair - Patient Problems (1) Achilles rupture, right Comment: - Management per ortho. (2) Hypertension Comment: - Cont amlodipine. - BP normalizing (3) Pain management Comment: - Frequency of dilaudid increased - IV morphine discontinued (4) Urinary retention Comment: - Sotomayor - Failed void trial per RN (5) DVT prophylaxis Comment: - SQ Heparin Attending: Annika Fuller
[2019-05-09] MEDS: traZODone TAB* 50 MG TAB PO PRN (22:50)
[2019-05-09] MEDS: traMADol TAB* 50 MG PO PRN (22:54)
[2019-05-10] MEDS: HYDROmorphone TAB* 2 MG PO PRN ×4 (01:32→13:37)
[2019-05-10] MEDS: Acetaminophen TAB* 325 MG PO SCH ×2 (05:30→13:37)
[2019-05-10] MEDS: traMADol TAB* 50 MG PO PRN (07:46)
[2019-05-10] MEDS: Tamsulosin CAP* 0.4 MG PO SCH (08:46)
[2019-05-10] MEDS: clonazePAM TAB(*) 0.5 MG PO SCH (08:46)
[2019-05-10] MEDS: DULoxetine DR CAP* 30 MG CAP.DR PO SCH (08:46)
[2019-05-10] MEDS: DULoxetine DR CAP* 20 MG CAP.DR PO SCH (08:46)
[2019-05-10] MEDS: Multivitamins/Minerals TAB PO SCH (08:46)
[2019-05-10] MEDS: Docusate CAP* 100 MG PO SCH (08:46)
[2019-05-10] MEDS: amLODIPine TAB* 5 MG PO SCH (08:47)
[2019-05-10] MEDS: Cyclobenzaprine TAB* 10 MG PO PRN (09:32)
--- NOTE | 2019-05-10 09:42 | PN ---
Progress Note - Progress Note Date of Service: 05/10/19 SOAP: Subjective: Patient seen and examined in bed. Patient states he is feeling well. Pain is controlled with medications. He denies CP, SOB, f/c or calf pain. Has been doing PT, states it is difficult to get around without help. Objective: RLE: - Splint in place, nvid LLE: - He can actively dorsiflex to about 0-5 degrees of plantarflexion, close to plantigrade - Dressing c/d/i - all exposed digits have full sensation. Vital Signs Temp 97.9 F 05/10/19 07:46 Pulse 107 05/10/19 07:46 Resp 18 05/10/19 09:34 BP 154/96 05/10/19 07:46 Pulse Ox 97 05/10/19 07:46 Intake & Output 05/09/19 05/10/19 05/10/19 18:59 06:59 18:59 Intake Total 720 1000 720 Output Total 1100 1450 Balance -380 -450 720 Intake: Oral 720 1000 720 Output: Urine 250 Sotomayor 850 1450 Other: Estimated Stool Amount Large Assessment: POD 5 right Achilles tendon repair s/p left Achilles tendon repair on 04/06/19 Plan: - Physical therapy for both ankles. RLE NWB. LLE PWB in cam boot with wedges. - Right ankle in a splint - Hosp started him BP med - Dispo- placement planning. Possible today
[2019-05-10 11:25] VITALS: BP 152/94
[2019-05-10] MEDS: Enoxaparin(*) 40 MG/0.4 ML SYR SUBCUT SCH (12:16)
--- NOTE | 2019-05-10 12:17 | DS ---
Orthopedic Discharge Summary - Discharge Summary Date of Admission:05/05/19 Date of Discharge: 05/10/2019 Date of Surgery: 05/05/2019 Attending Orthopedic Provider: Dr. Sanchez Pre-operative Diagnosis: Right Achilles tendon rupture Operative Procedure: Right Achilles tendon repair Disposition of Patient:[facility] Home care vs Outpatient services: Rehab services Condition of Patient: Good Pain medication RX at discharge: Hydromorphone and Tramadol DVT prophylaxis RX at discharge: Lovenox 40 mg History: VARUN CASAS is a 53 year old M who sustained a right achilles tendon rupture. He elected to undergo a right achilles tendon repair. He has recently had a left achilles tendon repair also. Hospital Course: VARUN was admitted to [facility] on 05/05/19. Patient underwent a right achilles tendon repair without complication followed by a brief recovery in PACU and transfer to the Short Stay Surgical Unit in stable condition. Our hospitalist service, physical therapy and occupational therapy also participated in this patients care. Post-op day 1: patient was alert and in no acute distress. Dressing was clean, dry and intact. Operative extremity sensation intact to light touch distally, DP2+. Post-op day two: dressing was clean, dry and intact. Pt was having trouble urinating and had to be straight cathed multiple times. Discussed the case with Dr. Aguirre who instructed placement of a Xie cath. He had this placed. On POD 4 the pt had a hospitalist consult placed and the pt was started on amlodipine for HTN. POD 5 the pt did receive a bed offer from [facility]. Patient was deemed to be medically and orthopedically stable for discharge. Physical therapy goals were met. Home Medications Medication Instructions Recorded Confirmed Type DULoxetine DR CAP* [Cymbalta CAP*] 20 mg PO DAILY 05/12/15 05/05/[address] CAP* [Cymbalta CAP*] 30 mg PO DAILY 05/12/15 05/05/19 History Multivitamins/Minerals TAB* 1 tab PO QAM 05/12/15 05/05/19 History [Theragran/minerals TAB*] traZODone TAB* [Desyrel TAB*] 150 mg PO BEDTIME 05/12/15 05/05/19 History clonazePAM TAB(*) [Klonopin TAB(*)] 0.5 mg PO TID 05/20/15 05/05/19 History oxyCODONE/Acetam5/325MG PREPAK 1 - 2 tab PO Q4HR PRN 03/29/19 05/05/19 History [Percocet 5/325 TAB*] Albuterol HFA INHALER* [Ventolin 2 puff INH BID PRN 04/30/19 05/05/19 History HFA Inhaler*] Ibuprofen TAB* [Motrin TAB* 400 MG] 400 mg PO BID PRN 04/30/19 05/05/19 History LevoCETirizine TAB (NF) [Xyzal TAB 10 mg PO ONCE PRN 04/30/19 05/05/19 History (NF)] Secukinumab [Cosentyx Syringe] 150 mg SUBCUT .ONCE MONTHLY 04/30/19 05/05/19 History Enoxaparin(*) [Lovenox(*)] 40 mg SUBCUT Q24H syringe 05/10/19 Rx HYDROmorphone TAB* [Dilaudid TAB*] 2 mg PO Q4H PRN tab 05/10/19 Rx amLODIPine TAB* [Norvasc 5 mg TAB*] 5 mg PO DAILY tab 05/10/19 Rx Discharge Instructions following Orthopedic Surgery: Activity: * PWB in CAM boot with wedges LLE * NWB RLE * Continue physical therapy and occupational therapy exercises as shown Wound care: * Dressing on until follow up visit Call Orthopedic office for: * Increased drainage * Redness * Increased pain * Fever Go to ER with shortness of breath or chest pain. Diet: * Regular diet * Increase fluids and fiber to prevent constipation. * Continue to use stool softeners, call office if no bowel motion within 48 hours. Medications See Home Medication List in your packet for medications that you should take after discharge. DVT Prophylaxis: Lovenox Dosin mg once a day for 4 weeks after the second operation Pain Control: Tramadol 50 mg tabs: take 1 tab for moderate pain and 2 tabs for every pain every 6 hours as needed. Max 8 per day. Hold for sedation, wean off as soon as pain allows. Hydromorphone 2mg every 4 hours for severe pain. Keep xie in place until Dr. Aguirre sees the pt. FOLLOW UP: Follow up with Dr. Daniel Within 10 - 14 days, call for appointment Please call our office with any questions or concerns ([phone])
--- NOTE | 2019-05-10 12:30 | PN ---
Subjective Date of Service: 05/10/19 Interval History: Pt seen today, sitting up in joint chair with BLE elvated. Denies any lightheadedness, visual changes, CP, palpitations, SOB, N/V/D, unusual numbness or tingling. Denies any concerns at this time, awaiting his discharge plan. Objective Active Medications: Acetaminophen (Tylenol Tab*) 975 mg PO Q8HR [facility] Last Admin: 05/10/19 05:30 Dose: 975 mg Albuterol (Ventolin Hfa Inhaler*) 2 puff INH BID PRN PRN Reason: WHEEZING Amlodipine Besylate (Norvasc Tab*) 5 mg PO DAILY [facility] Last Admin: 05/10/19 08:47 Dose: 5 mg Bisacodyl (Dulcolax Supp*) 10 mg [place] DAILY PRN PRN Reason: CONSTIPATION Cetirizine HCl (Zyrtec*) 10 mg PO ONCE PRN PRN Reason: Allergy Symptoms Clonazepam (Klonopin Tab(*)) 0.5 mg PO TID [facility] Last Admin: 05/10/19 08:46 Dose: 0.5 mg Cyclobenzaprine HCl (Flexeril Tab*) 10 mg PO Q6H PRN PRN Reason: SPASMS Last Admin: 05/10/19 09:32 Dose: 10 mg Diphenhydramine HCl (Benadryl Iv*) 25 mg IV Q6H PRN PRN Reason: PRURITIS Diphenhydramine HCl (Benadryl Po*) 25 mg PO Q6H PRN PRN Reason: PRURITIS Docusate Sodium (Colace Cap*) 100 mg PO BID [facility] Last Admin: 05/10/19 08:46 Dose: 100 mg Duloxetine HCl (Cymbalta Cap*) 20 mg PO DAILY [facility] Last Admin: 05/10/19 08:46 Dose: 20 mg Duloxetine HCl (Cymbalta Cap*) 30 mg PO DAILY [facility] Last Admin: 05/10/19 08:46 Dose: 30 mg Enoxaparin Sodium (Lovenox(*)) 40 mg SUBCUT Q24H [facility] Last Admin: 05/10/19 12:16 Dose: 40 mg Hydromorphone HCl (Dilaudid Tab*) 2 mg PO Q4H PRN PRN Reason: PAIN - SEVERE Last Admin: 05/10/19 09:28 Dose: 2 mg Lactated Ringer's (Lactated Ringers 1000 Ml Bag*) 1,000 mls @ 100 mls/hr IV PER RATE [facility] Last Admin: 05/06/19 04:48 Dose: 100 mls/hr Lactulose (Lactulose*) 30 ml PO BID PRN PRN Reason: CONSTIPATION Magnesium Hydroxide (Milk Of Magnesia Liq*) 30 ml PO Q6H PRN PRN Reason: CONSTIPATION Multivitamins/Minerals (Theragran/Minerals Tab*) 1 tab PO QAM [facility] Last Admin: 05/10/19 08:46 Dose: 1 tab Ondansetron HCl (Zofran Inj*) 4 mg IV Q6H PRN PRN Reason: NAUSEA Ondansetron HCl (Zofran Odt Tab*) 4 mg PO Q6H PRN PRN Reason: NAUSEA Polyethylene Glycol/Electrolytes (Miralax*) 17 gm PO DAILY PRN PRN Reason: Constipation Tamsulosin HCl (Flomax Cap*) 0.4 mg PO DAILY [facility] Last Admin: 05/10/19 08:46 Dose: 0.4 mg Tramadol HCl (Ultram*) 50 mg PO Q6HR PRN PRN Reason: PAIN - MODERATE Last Admin: 05/10/19 07:46 Dose: 50 mg Trazodone HCl (Desyrel Tab*) 25 mg PO BEDTIME PRN PRN Reason: insomnia Last Admin: 05/09/19 22:50 Dose: 25 mg Vital Signs - 8 hr 05/10/19 05/10/19 05/10/19 05:30 05:31 07:46 Temperature 97.9 F Pulse Rate 107 Respiratory 18 18 18 Rate Blood Pressure 154/96 (mmHg) O2 Sat by Pulse 97 Oximetry 05/10/19 05/10/19 05/10/19 07:49 08:00 08:46 Temperature Pulse Rate Respiratory 18 18 18 Rate Blood Pressure (mmHg) O2 Sat by Pulse Oximetry 05/10/19 05/10/19 05/10/19 09:28 09:32 09:34 Temperature Pulse Rate Respiratory 18 18 18 Rate Blood Pressure (mmHg) O2 Sat by Pulse Oximetry 05/10/19 05/10/19 05/10/19 10:35 11:15 11:16 Temperature Pulse Rate Respiratory 18 18 18 Rate Blood Pressure (mmHg) O2 Sat by Pulse Oximetry 05/10/19 11:24 Temperature 97.9 F Pulse Rate 95 Respiratory 16 Rate Blood Pressure 152/94 (mmHg) O2 Sat by Pulse 96 Oximetry Oxygen Devices in Use Now: None Appearance: Sitting up in chair, NAD. Eyes: No Scleral Icterus, - - PERRL Ears/Nose/Mouth/Throat: - Neck: - - supple Respiratory: Symmetrical Chest Expansion and Respiratory Effort, Clear to Auscultation Cardiovascular: RRR Abdominal: NL Sounds; No Tenderness; No Distention Lymphatic: No Cervical Adenopathy Extremities: - - PPP 1+ to LLE. unable to palpate R DPP d/t dressing Skin: - - dressing to RLE, dressing to LLE Neurological: Alert and Oriented x 3, NL Sensation - to all exposed toes of BLE Nutrition: Taking PO's Result Diagrams: 05/08/19 05:08 05/06/19 06:39 Additional Lab and Data: . Microbiology and Other Data: Microbiology 05/07/19 13:40 Urine Urine Culture - Final Assess/Plan/Problems-Billing Assessment: 53 yr old patient with pmh of ankylosing spondilitis, fibromyalgia, anxiety, depression; who is s/p repair of R achillis tendon rupture - Patient Problems (1) Achilles rupture, right Status: Acute Code(s): S86.011A - STRAIN OF RIGHT ACHILLES TENDON, INITIAL ENCOUNTER SNOMED Code(s): 29846102816032912 Comment: s/p surgical intervention - Management per ortho. (2) Hypertension Status: Acute Code(s): I10 - ESSENTIAL (PRIMARY) HYPERTENSION SNOMED Code(s) : 25945373 Comment: BP remains stable. - Cont amlodipine. - F/u with PCP (3) Pain management Status: Acute Code(s): R52 - PAIN, UNSPECIFIED SNOMED Code(s): 707182339 Comment: Management per orthopedics (4) Urinary retention Status: Acute Priority: High Code(s): R33.9 - RETENTION OF URINE, UNSPECIFIED SNOMED Code(s): 588235857 Comment: - Sotomayor - Will f/u with urology as an outpatient (5) DVT prophylaxis Status: Acute Priority: High Code(s): FLL7452 - SNOMED Code(s): 775989977 Comment: Per orthopedics - SQ Heparin (6) Full code status Status: Acute Priority: High Code(s): Z78.9 - OTHER SPECIFIED HEALTH STATUS SNOMED Code(s): 155213905 Status and Disposition: Status: Stable Disposition: Awaiting d/c to [facility] Attending: Radha Pickard
== END 2019-05-10 14:40 | disposition swing bed (61) | DRG 502 ==
LOC: OR 11:55 → SSU 16:17
PROVIDERS: ADMIT Orthopaedic Surgery; ATTEND Orthopaedic Surgery
PROC: 0LSN0ZZ Reposition Right Lower Leg Tendon, Open Approach (ICD-10-PCS; 2019-05-05)
PROC: 0LQN0ZZ Repair Right Lower Leg Tendon, Open Approach (ICD-10-PCS; principal; 2019-05-05 14:00)
DX: S86.011A Strain of right Achilles tendon, initial encounter (principal); M76.61 Achilles tendinitis, right leg; M45.9 Ankylosing spondylitis of unspecified sites in spine; J45.909 Unspecified asthma, uncomplicated; F41.9 Anxiety disorder, unspecified; F32.9 Major depressive disorder, single episode, unspecified; L20.9 Atopic dermatitis, unspecified; M79.7 Fibromyalgia; I10 Essential (primary) hypertension; R33.9 Retention of urine, unspecified; X58.XXXA Exposure to other specified factors, initial encounter; Z88.5 Allergy status to narcotic agent; Y92.9 Unspecified place or not applicable; Z88.0 Allergy status to penicillin
CPT/HCPCS: 36415; 80048; 81003; 81015; 85014; 85018; 85049; 87086; A9270-GY; J1170; J1650; J1720; J1885; J2250; J2270; J2405; J2704; J2710; J2795; J3010

== ENCOUNTER 2019-05-17 11:36 | Inpatient (IN) | payer MEDICARE, MEDICAID ==
[2019-05-17] MEDS ORDERED: Ondansetron ODT TAB* 4 MG PO PRN (12:16)
[2019-05-17] MEDS ORDERED: Ondansetron INJ* 2 MG/ML VIAL IV PRN (12:16)
[2019-05-17] MEDS ORDERED: diPHENhydraMINE IV* 50 MG/ML 1 ml VIAL (BENADRYL) IV PRN (12:16)
[2019-05-17] MEDS ORDERED: diPHENhydraMINE PO* 25 MG PO PRN (12:16)
[2019-05-17] MEDS ORDERED: Magnesium Hydroxide LIQ* 30 ML UDC PO PRN (12:16)
[2019-05-17] MEDS ORDERED: traMADol TAB* 50 MG PO PRN (12:16)
[2019-05-17] MEDS ORDERED: Heparin VIAL(*) 5000 UNITS/ML VIAL (FIVE THOUSAND) SUBCUT SCH ×2 (14:00→21:00)
--- OUTSIDE RECORDS SUMMARY | 2019-05-17 16:09 | XMS REPORT | Continuity of Care Document ---
:1965 Author Organization [facility] Address [address] [place], [place] [id number] Phone Care Team Providers Name Role Phone Kenya López PA-C Unavailable Unavailable Allergies, Adverse Reactions, Alerts Substance Reaction Status secukinumab Active MORPHINE SULFATE vomitting Active penicillin G Active POTASSIUM CLAVULANATE Active Medications Medication Instructions Dosage Effective Status Comments Dates (start - stop) cyclobenzaprine 5 mg take 1 - 2 Tablet 5 MG - Active tablet by oral route every bedtime as needed as needed Lyrica 100 mg take 1 capsule by 100 MG - Active MDD=3 capsule oral route 3 times Reference #: every day [id number] COSENTYX 150MG/ML INJECT 1 SYRINGE - Active INJ SUBCUTANEOUSLY EVERY 4 WEEKS hydrocodone 5 take 1/2 tablet by - Active Reference #: mg-acetaminophen 325 oral route every [id number] MDD mg tablet other day ONLY IF 1/2 tab NEEDED FOR PAIN Voltaren 1 % topical apply (2G) by - Active gel topical route 4 times every day to the affected area(s) trazodone 100 mg take 2 tablet - Active tablet (200MG) by oral route every bedtime after meals Klonopin 1 mg tablet take 1 tablet by 1 MG - Active oral route 3 times every day and prn Cymbalta 60 mg take 1 capsule 60 MG - Active Capsule, delayed (60MG) by oral release route every day multivitamin Tab take 1 tablet by - Active oral route every day with food Lyrica 100 mg take 1 capsule by 100 MG - No Longer MDD=3 capsule oral route 3 times Active Reference #: every day [id number] Lyrica 100 mg take 1 capsule by 100 MG - No Longer MDD=3 capsule oral route 3 times Active Reference #: every day [id number] cyclobenzaprine 5 mg take 1 - 2 Tablet 5 MG - No Longer tablet by oral route Active every bedtime as needed as needed Cosentyx 150 mg/mL inject 1 milliliter - No Longer subcutaneous syringe by subcutaneous Active route every 4 weeks Problems Condition Effective Dates Clinical Status Comments (start - stop) Body mass index (BMI) - 29.0-29.9, adult Body mass index (BMI) - 29.0-29.9, adult Ankylosing spondylitis of multiple sites in spine Other longterm (current) drug therapy Fibromyalgia Ankylosing spondylitis of multiple sites in spine Fibromyalgia Other longterm (current) drug therapy Ankylosing spondylitis of multiple sites in spine Fibromyalgia Other long term care pharmacist (current) drug therapy Ankylosing spondylitis of multiple sites in spine Fibromyalgia Other longterm (current) drug therapy Ankylosing spondylitis of multiple sites in spine Fibromyalgia Other long term care pharmacist drug therapy Ankylosing spondylitis of multiple sites in spine Other longterm drug therapy Fibromyalgia Ankylosing spondylitis of multiple sites in spine Fibromyalgia Other longterm drug therapy Ankylosing spondylitis of multiple sites in spine Other long term care pharmacist drug therapy Ankylosing spondylitis of multiple sites in spine Fibromyalgia Other long term care pharmacist drug therapy Ankylosing spondylitis of multiple sites in spine Other long term care pharmacist drug therapy Fibromyalgia Ankylosing spondylitis of multiple sites in spine Other long term care pharmacist drug therapy Fibromyalgia Cervicalgia Ankylosing spondylitis of multiple sites in spine Other longterm drug therapy Ankylosing spondylitis of multiple sites in spine Other longterm drug therapy Fibromyalgia Ankylosing spondylitis of multiple sites in spine Fibromyalgia Other long term care pharmacist drug therapy Ankylosing spondylitis of multiple sites in spine Fibromyalgia Insect bite (nonvenomous) of abdominal wall, sequela Fibromyositis - Active Mapped from [employer] Chronic Conditions table on 07/29/2014 by the ICD9 to SNOMED Bulk Mapping Utility. The mapped diagnosis code was Fibromyalgia / Myalgia, 729.1, added by Kenya Mirza, with responsible provider Kenya López PA-C. Onset date 01/11/2014; last addressed on 01/11/2014. Ankylosing spondylitis - Active Mapped from [facility] Chronic Conditions table on 06/14/2014 by the ICD9 to SNOMED Bulk Mapping Utility. The mapped diagnosis code was Ankylosing spondylitis, 720.0, added by Kenya Mirza, with responsible provider Kenya López PA-C. Onset date 05/26/2012; last addressed on 01/11/2014. Procedures Procedure Date No information Results Test Name Date and Time Measure Units Reference Range Abnormal Flag Status Comments No information Advance Directives Directive Yes / No Effective Date File Name No information Encounters Encounter Practice Location Reason(s) Diagnoses Date Provider Providers Description For Visit Copied on Encounter [facility] 9 Kenya B. PLLC, 5794 PLLC [address] [facility], [place], [place], [id number], [id number], [place]. tel:[phone] tel:[phone] [facility] 9 Kenya B. PLLC, 5794 PLLC [address] [facility], [place], [place], [id number], [id number], [place]. tel:[phone] tel:[phone] [facility] 9 Kenya B. PLLC, 5794 PLLC [address] [facility], [place], [place], [id number], [id number], [place]. tel:[phone] tel:[phone] [facility] 9 Kenya B. PLLC, 5794 PLLC [address] [place], [place], [id number], [id number], [place]. tel:+ tel:[phone] Arthritis Arthritis Sep- [facility] PA-C [facility] 9 Kenya Cornelius PLLC, 5794 PLLC [address] [facility], [place], [place], [id number], [id number], [place]. tel: tel:[phone] Arthritis Arthritis Sep- [facility]C [facility] 9 Kenya NewmanSanti PLLC, 5794 PLLC [address] [facility], [place], [place], [place], [id number], [id number], [place]. tel: tel: [phone] Arthritis Ar[facility]ritis Ankylosing Scotty- [facility] Referring [facility] Health spondylitis of PA-C Provider: Associates Associates multiple sites 9 Kenya Ryan PLLC, 5794 PLLC in spineOther [address] [place], [facility] [address] [place] [address], (current) drug [place], [facility] [place], therapyFibromy [place], [place], [place], [place], [place], [id number], [id number], [place], [place]. [id number]. tel: tel: tel: [phone] Arthritis Arthritis Ankylosing Apr- [facility] Referring [facility] Health spondylitis of PA-C Provider: [facility] multiple sites 9 Kenya Ryan PLLC, 5794 PLLC in [address] [place], [facility] spineFibromyal [facility] [address] [place], giaOther long [place], [facility] [place], term (current) [place], [place], [place], drug [place], [place], [id number], [id number], [place], [place] [id number]. tel:+ tel:+ tel:[phone] Arthritis Arthritis Ankylosing Apr- [facility] Referring [facility] spondylitis of PA-C Provider: [facility] Associates multiple sites 9 Kenya Arreola PLLC, [address] [facility], [facility], Clinic [address] [place], term (current) [place], [facility], drug therapy [place], Road, [id number], [id number], [place], [place] [address]. tel:+ tel:+ tel:[phone] Arthritis Arthritis Ankylosing Jan- [facility] Referring [facility] spondylitis of PA-C Provider: [facility] Associates multiple sites 8 Kenya NewmanSanti [place] PLLC, [address] [facility], [facility], Clinic [address] [place], term (current) [place], [facility], drug therapy [place], Road, [id number], [id number], [place] [address]. tel:+ tel:+ tel:[phone] Arthritis Arthritis Ankylosing Oct- [facility] Referring [facility] Health spondylitis of PA-C Provider: Associates Associates multiple sites 8 Jeffrey. Arreola PLLC, [address] [facility], [facility], Clinic [address] [place], term drug [place], [facility], therapy [place], Road, [id number], [id number], [place] [address]. tel:[phone] tel:+[phone] tel:[phone] [facility] 8 Kenya NewmanSanti PLLC, 5794 PLLC [address] [facility], [place], [place], [place], [id number], [id number], [place]. tel:+ tel:[phone] Arthritis Arthritis Ankylosing Apr-2 [place] Referring Health Health spondylitis of 3201 PA-C Provider: Associates Associates multiple sites 8 Kenya NewmanSanti Arreola PLLC, 5794 PLLC in spineOther [address] [place] [address] long term care pharmacist drug [facility], [facility] [place], Clinic [address] [place], algia [place], [facility], [place], Road, [id number], [id number], [place] [address]. 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 [address]. tel:+ 29.0-29.9, tel:+4 tel:[phone] Arthritis Arthritis Ankylosing Aug-2 Zambrano PA C Referring Health Health spondylitis of Brandy Lui Provider: Associates Associates multiple sites 7 5794 Aliasgher PLLC, 5794 PLLC in spineOther [facility] longterm drug [address]kw[address], [facility], therapyBody [place], Clinic [address] [place], mass index [place], [facility], (BMI) [id number], Road, [id number], 29.0-29.9, [place]. [place], [place], [place] adult tel:+ [phone]. tel:+ [phone] tel:[phone] Arthritis Arthritis Ankylosing Drew-2 [place] Referring Health Health spondylitis of PA-C Provider: Associates Associates multiple sites 7 Kenya Arreola PLLC, 5794 PLLC in 5794 [facility], [facility] spineFio[facility] hospitalal [facility], [facility], Clinic [address] [place], term drug [place], [facility], therapy [place], Road, [id number], [id number], [place]. [address]. tel:+ tel:+ tel:[phone] Arthritis Arthritis Ankylosing Apr-1 [place] Referring Health Health spondylitis of PA-C Provider: Associates Associates multiple sites 7 Kenya Arreola PLLC, 5794 PLLC in spineOther 5794 [facility], [facility] longterm drug [facility], [facility], Clinic [address] [place], algia [place], [facility], [place], Road, [id number], [id number], [place] [address]. tel:+ tel:+ tel:[phone] Arthritis Arthritis Ankylosing Dec-2 [place] Referring Health Health spondylitis of PA-C Provider: Associates Associates multiple sites 6 Kenya Arreola PLLC, 5794 PLLC in spineOther 5794 [facility], [facility] long term care pharmacist drug [facility], [facility], Clinic [address] [place], algiaCervicalg [place], [place], [place], Road, [id number], [id number], [place]. [address]. tel:+[phone] tel:+[phone] tel:[phone] Arthritis Arthritis Ankylosing Sep-0 [place] Referring Health Health spondylitis of 1-201 PA-C Provider: Associates Associates multiple sites 6 Kenya NewmanSanti [place] PLLC, 5794 PLLC in spineOther 5794 [facility], [facility] longterm drug [facility], therapy [place], Clinic [address] [place], [place], [place], [place], Road, [id number], [id number], [place] [address]. tel:+[phone] tel:+[phone] tel:[phone] Arthritis Arthritis Ankylosing Drew-1 [place] Referring Health Health spondylitis of 5- PA-C Provider: Associates Associates multiple sites 6 Kenya NewmanSanti [place] PLLC, 5794 PLLC in spineOther 5794 [facility], [facility] longterm drug [facility], [facility] [place], Clinic [address] [place], algia [place], [facility], [place], Road, [id number], [id number], [place] [address]. tel:+[phone] tel:+[phone] tel:[phone] Arthritis Arthritis Ankylosing Mar-3 [place] MENDEZ Referring Health Health spondylitis of 0-201 Connor. Provider: Associates Associates multiple sites 6 5794 Aliasgher PLLC, 5794 PLLC in [facility]Multic[facility] Healthmy[facility], [place], giaOther long [place], Clinic [address] [place], term drug [place], [facility], therapy [id number], Road, [id number], . [place], [place], tel:[phone]. tel:[phone] tel:[phone] Arthritis Arthritis Ankylosing Dec-1 [place] Referring Health Health spondylitis of 6-201 PA-C Provider: Associates Associates multiple sites 5 Kenya NewmanSanti Bakarier PLLC, 5794 PLLC in 5794 [facility] spineCrestwood Medical Centeral [facility] [place], giaInsect bite [place], Clinic [address] [place], (nonvenomous) [place], [place], of [facility] [place], Road, [id number], [place], [facility] [id number], [place] [address]. tel:+ tel:+ tel:[phone] Arthritis Arthritis Apr-0 [facility] 2- PA-C Provider: Associates Associates 5 Kenya Arreola PLLC, 5794 PLLC 5794 [facility], [facility] 17[address] [place], [place], [place], [place], Road, [id number], [id number], [place] [address]. tel:+ tel:+ tel:[phone] Arthritis Arthritis Edmond CONVEYOR CONSOLE OPERATOR-C [facility] [place]. 5794 Provider: Associates Santi 5 Henok Arreola PLLC, 5794 PLLC [place], [place], [place], [facility] [address] [place], [id number], [facility]. Road, [id number], tel:+[phone] [place], [place], [address]. tel:+ tel:[phone] Arthritis Arthritis Oct- [facility] 7 PA-C Provider: Associates Associates 4 Kenya Arreola PLLC, 5794 PLLC 5794 [facility], [facility] [address] [place], [place], [place], [place], Road, [id number], [id number], [place] [address]. tel:+4 tel:+315 tel:[phone] Arthritis Arthritis [facility] Referring [facility] Health 3-201 PA-C Provider: Associates Associates 4 Jeffrey. Arreola PLLC, 5794 PLLC 5794 [facility], [facility], [place], Clinic [address] [place], [place], [facility], [place], Road, [id number], [id number], [place] [address]. tel:+[phone] tel:+4 tel:[phone] Arthritis Arthritis Apr- [place] CONVEYOR CONSOLE OPERATOR-C Referring Health Health [place]. 5794 Provider: Associates Associates 4 [facility] PLLC, 5794 PLLC [place], [facility], [facility], [place], [place], Clinic 178 [place], [id number], [facility]. Road, [id number], tel:+[phone] [place], [place], [address]. tel:+4 tel:[phone] Arthritis Arthritis Jan- [facility] CONVEYOR CONSOLE OPERATOR-C Associates Associates 3 [facility]. 310 PLLC, 5794 PLLC S [facility], [place], [place], [place], [place], [id number], [id number], . [place] tel:+ tel:[phone] Arthritis Arthritis Oct-2 Edmond CONVEYOR CONSOLE OPERATOR-C Referring [facility] Health [place]. 5794 Provider: Associates Associates 3 [facility] 5[address] PLLC [place], [facility], [facility], [place], [place], Clinic 178 [place], [id number], [facility]. Road, [id number], tel:+[phone] [facility] [phone]. tel:+[phone] tel:[phone] Arthritis Arthritis Aug-2 Edmond CONVEYOR CONSOLE OPERATOR-C Referring [facility] Health [place]. 5794 Provider: Associates Associates 3 [facility], 5794 PLLC [place], [facility], [facility], [facility] 1780 [place], [id number], [facility]. Road, [id number], tel:+[phone] [facility] [phone]. tel:+ tel:[phone] Arthritis Arthritis Apr-0 Edmond CONVEYOR CONSOLE OPERATOR-C Referring [facility] Health 2- [place]. 5794 Provider: Associates Santi 3 [facility] [place] [facility], 5794 [facility] 1780 [place], [id number], [facility]. Road, [id number], tel:+[phone] [facility] [phone]. tel:+ tel:[phone] Arthritis Arthritis Nov-0 [facility] Referring [facility] 8 PA-C Provider: Associates Santi 2 Jeffrey. Arreola [facility], [address] [place] [address] [place] [address], [facility] [address] [place], [place], [place], [place], Road, [id number], [id number], [place] [address]. tel:+ tel:+ tel:[phone] Arthritis Arthritis Oct- [facility] Referring [facility] Health PA-C Provider: Associates Santi 2 Jeffrey. Arreola [facility], [address] [place] [address], [facility] [address] [place], [place], [place], [place], Road, [id number], [id number], [place] [address]. tel:+ tel:+ tel:[phone] Arthritis Arthritis Fe- Edmond CONVEYOR CONSOLE OPERATOR-C Referring [facility] Health 6-201 [place]. 5794 Provider: Santi [place] 1 [facility] [place] [facility], 5794 PLLC [place], [place], [place], [place], [facility] 1780 [place], [id number], [facility]. Road, [id number], tel:-[phone] [facility] [phone]. tel:[phone] tel:[phone] Family History Family Member Diagnosis Age At Onset Paternal grandmother Mother Cousins Mother Rheumatoid arthritis Nephew Ankylosing Spondylitis Father Daughter Grandfathers Immunizations Vaccine Date Status Comments Influenza, split virus, administered Note: Invalid documented admin injectable, 3 years and older date was . ; Fluvirin Source: Other Provider Influenza, split virus, administered Source: Other Registry injectable, 3 years and older Fluvirin [id number] Influenza virus vaccine, administered Source: Other Provider Injection Flu (split) (3 yrs or older) administered Source: New Immunization Record Never had Flu vaccine administered Source: Other Provider Yet to receive Flu vaccine administered Source: Source Unspecified Not receiving Zoster administered Source: New Immunization Record Influenza virus vaccine, administered Source: Source Unspecified Injection pneumo (2 yrs or older) administered Source: Other Provider ([id number]) Payers Payer name Insurance type Covered alliance party ID Authorization(s) Medicare [id number] Medicaid MC [id number] Social History Type Description Quantity Date Captured Comments Alcohol Use Details Unknown Caffeine Use Details Unknown Tobacco Use Status Unknown Smoking Status Unknown Sex Male Vital Signs Date / Height Weight BMI Pulse Blood Temperature Respiratory Body Head BMI Pulse Inhaled Time: Rate Pressure Rate Surface Circumference percentile Ox Ox Area No information Chief Complaint And Reason For Visit No information Reason For Referral Reason For Referral No information Plan Of Treatment Date Type Action Status Goal Lifestyle education regarding diet completed Goal Lifestyle education regarding diet completed History Of Present Illness Encounter Date Complaint History Of Present Illness No information Functional Status Date Functional Assessment No information Medications Administered Medication Instructions Dosage Effective Dates (start - stop) Status Comments No information Instructions Date Instruction Additional Information Risks / benefits of Opioid treatment reviewed. Discussed importance of holding DMARDs/ biologics if patient develops an infection and to notify the treating physician Risks/benefits of medications reviewed Risks/benefits of medications reviewed Discussed importance of holding DMARDs/ biologics if patient develops an infection and to notify the treating physician call if symptoms worsen Risks/benefits of medications reviewed Labs ordered to check disease activity. Labs ordered to check blood counts, liver and kidney functions to monitor safety of medication. Discussed / Reviewed Labs Conservative medical care measures discussed. Moderate activities regarding symptomatic joints. Lifestyle education regarding diet Related to Body mass index ( BMI) 29.0-29.9, adult call if symptoms worsen Reviewed importance of compliance/adherence to medications prescribed Risks/benefits of medications reviewed Stretching Conservative medical care measures discussed. Moderate activities regarding symptomatic joints. Discussed importance of holding DMARDs/ biologics if patient develops an infection and to notify the treating physician Discussed the need to hold DMARDS/Biologics before and after surgery/procedure. For sleep, the need to add adequate relaxation, rest and exercise was discussed Yoga Avoid live vaccines Lifestyle education regarding diet Related to Body mass index ( BMI) 29.0-29.9, adult Discussed / Reviewed Labs Labs ordered to check disease activity. Labs ordered to check blood counts, liver and kidney functions to monitor safety of medication. Risks/benefits of medications reviewed Discussed importance of holding DMARDs/ biologics if patient develops an infection and to notify the treating physician Risks/benefits of medications reviewed Discussed importance of holding DMARDs/ biologics if patient develops an infection and to notify the treating physician Stretching
--- OUTSIDE RECORDS SUMMARY | 2019-05-17 16:09 | XMS REPORT | Continuity of Care Document ---
:1965 External Reference #:[id number] Author Name Memo Sanchez MD (transmitted by agent of provider Cherise Marrero) Address [address] [place] [id number] Care Team Providers Name Role Phone Andrey Little MD - Internal Care Team Information Flotation Tender Helper [phone] Medicine Felicia Peters RPA-C - Medical Care Team Information Flotation Tender Helper Problems Description No Information Available Social History Type Date Description Comments Sex Unknown Cigarette Use Quit 10 Years Ago Tobacco Use Start: Unknown Never Smoked Cigars Tobacco Use Start: Unknown Never Smoked A Pipe Smoking Status Reviewed: 04/19/19 Never Smoked A Pipe Smokeless Tobacco Never Used Smokeless Tobacco ETOH Use Occasionally consumes alcohol Allergies, Adverse Reactions, Alerts Active Allergies Reaction Severity Comments Date Penicillin hives 11/12/2010 Medications Active Medications SIG Qnty Indications Ordering Date Provider Percocet 1-2 by mouth every 30tabs [facility] 04/12/2019 5-325mg Tablets 4-6 hours as needed MD Daniel pain Keflex 1 cap by mouth 21caps [facility] 04/06/2019 500mg Capsules three times a day MD Daniel Aspirin 1 tab by mouth 14tabs [facility] 04/06/2019 325mg Tablets twice a day MD Daniel Zofran 1 tab by mouth 30tabs [facility] 04/06/2019 4mg Tablets every 6 hours as MD Daniel needed Cyclobenzaprine HCL 1 tab by mouth 60tabs [facility] 04/06/2019 10mg three times a day MD Daniel Tablets as needed for muscle spasm Ondina 1 po qd 30tabs Unknown 180mg Tablets Trazodone HCL 1 po qhs Unknown 100mg Tablets Singulair 1 po qd 30tabs Unknown 10mg Tablets Fluticasone Propionate 1 spray each 3units Unknown nostril in am 50mcg/Act Suspension Enbrel 1 ml subcutaneous 8units Unknown 25mg Kit injection 2 times a week Prednisone 1 by mouth every Unknown 5mg Tablets day History Medications Hydrocodone-Acetaminophen 1 or 2 tabs 40tabs Memo 04/06/2019 - 5-325mg Tablets by mouth MD Daniel 04/18/2019 every 6-8 hours as needed for pain Percocet 1-2 by mouth 30tabs Memo 03/22/2019 - 5-325mg Tablets every 4-6 MD Daniel 04/06/2019 hours as needed pain Immunizations Description No Information Available Vital Signs Date Vital Result Comment 04/19/2019 10:53am Height 74 inches 6'2" Heart Rate 114 /min BP Systolic Sitting 132 mmHg BP Diastolic Sitting 92 mmHg Body Temperature 98.3 F 03/22/2019 8:39am Height 74 inches 6'2" Weight 195.00 lb Heart Rate 113 /min BP Systolic Sitting 150 mmHg BP Diastolic Sitting 100 mmHg Body Temperature 98.0 F BMI (Body Mass Index) 25.0 kg/m2 Results Test Acquired Date Facility Test Result H/L Range Note Xray 03/24/2019 MRI Ankle Left W/O <pending> [address] [place] [address] [phone] Procedures Date Code Description Status 04/12/2019 67397 Short Leg Cast Completed Medical Devices Description No Information Available Encounters Type Date Location Provider Dx Diagnosis Office Visit 03/22/2019 [facility] Memo Ren M76.61 Achilles 9:00a at Chan Sanchez MD tendinitis, right leg S86.012A Strain of left Achilles tendon, initial encounter Assessments Date Code Description Provider 04/19/2019 S86.012D Strain of left Achilles tendon, subsequent Memo Sanchez MD encounter 04/19/2019 S86.001D Unspecified injury of right Achilles Memo Sanchez MD tendon, subsequent encounter 04/12/2019 S86.011A Strain of right Achilles tendon, initial Memo Sanchez MD encounter 04/12/2019 S86.012D Strain of left Achilles tendon, subsequent Memo Sanchez MD encounter 03/22/2019 M76.61 Achilles tendinitis, right leg Memo Sanchez MD 03/22/2019 S86.012A Strain of left Achilles tendon, initial Memo Sanchez MD encounter Plan of Treatment Future Appointment(s):05/03/2019 9:30 am - Memo Sanchez MD at [facility] at [facility]/13/2020 - Memo Sanchez MDS86.012D Strain of left Achilles tendon, subsequent encounterNew Xrays:US Soft Tissue Extremity RT , Ordered: 04/19/1986.001D Unspecified injury of right Achilles tendon, subsequent encounterFollow up:Follow up: in 2 weeks (he needs this appointment slot) Functional Status Description No Information Available Mental Status Description No Information Available Referrals Description No Information Available
--- OUTSIDE RECORDS SUMMARY | 2019-05-17 16:09 | XMS REPORT | Continuity of Care Document ---
:1965 Author Organization [facility] Address [address], [place] [id number] Phone Care Team Providers Name Role Phone [...] route 3 times Reference #: every day [id number] COSENTYX 150MG/ML INJECT 1 SYRINGE - Active INJ SUBCUTANEOUSLY EVERY 4 WEEKS hydrocodone 5 take 1/2 tablet by - Active Reference #: mg-acetaminophen 325 oral route every [id number] MDD mg tablet other day ONLY IF [...] 3 times Active Reference #: every day [id number] Lyrica 100 mg take 1 capsule by 100 MG - No Longer MDD=3 capsule oral route 3 times Active Reference #: every day [id number] cyclobenzaprine 5 mg take 1 - 2 [...] spondylitis of multiple sites in spine Other halfway (current) drug therapy Fibromyalgia Ankylosing spondylitis of multiple sites in spine Fibromyalgia Other halfway (current) drug therapy Ankylosing spondylitis of multiple sites in spine Fibromyalgia Other intermodal dispatcher (current) drug therapy Ankylosing spondylitis of multiple sites in spine Fibromyalgia Other halfway (current) drug therapy Ankylosing spondylitis of multiple sites in spine Fibromyalgia Other intermodal dispatcher drug therapy Ankylosing spondylitis of multiple sites in spine Other halfway drug therapy Fibromyalgia Ankylosing spondylitis of multiple sites in spine Fibromyalgia Other halfway drug therapy Ankylosing spondylitis of multiple sites in spine Other intermodal dispatcher drug therapy Ankylosing spondylitis of multiple sites in spine Fibromyalgia Other intermodal dispatcher drug therapy Ankylosing spondylitis of multiple sites in spine Other intermodal dispatcher drug therapy Fibromyalgia Ankylosing spondylitis of multiple sites in spine Other intermodal dispatcher drug therapy Fibromyalgia Cervicalgia Ankylosing spondylitis of multiple sites in spine Other halfway drug therapy Ankylosing spondylitis of multiple sites in spine Other halfway drug therapy Fibromyalgia Ankylosing spondylitis of multiple sites in spine Fibromyalgia Other intermodal dispatcher drug therapy Ankylosing spondylitis of multiple sites [...] 01/11/2014. Ankylosing spondylitis - Active Mapped from [facility] Chronic Conditions table on 06/14/2014 by the [...] For Visit Copied on Encounter Arthritis Arthritis [facility] One Hour Translation [facility] 9 Kenya B. PLLC, 5794 PLLC [address] [facility], [place], [place], [id number], [id number], [place]. tel:[phone] tel:[phone] Arthritis Arthritis [facility] One Hour Translation [facility] 9 Kenya B. PLLC, 5794 PLLC [address] [facility], [place], [place], [id number], [id number], [place]. tel:[phone] tel:[phone] Arthritis Arthritis [facility] One Hour Translation [facility] 9 Kenya B. PLLC, 5794 PLLC [address] [facility], [place], [place], [id number], [id number], [place]. tel:[phone] tel:[phone] Arthritis Arthritis [facility] One Hour Translation [facility] 9 Kenya B. PLLC, 5794 PLLC [address] [place], [place], [place], [place], [id number], [id number], [place]. tel:+ tel:[phone] Arthritis Arthritis [facility] PA-C [facility] 9 Kenya Cornelius PLLC, 5794 PLLC 5794 [facility], [place], [place], [place], [id number], [id number], [place]. tel:+ tel:[phone] Arthritis Arthritis Ankylosing [facility] Referring [facility] Health spondylitis of PA-C Provider: Associates Associates multiple sites 9 Kenya Ryan PLLC, 5794 PLLC in spineOther [address] [place] MENDEZ, [facility] [address] [place] [address], (current) drug [place], [facility] [place], therapyFibromy [place], [place], [place], [place], [place], [id number], [id number], [place], [place]. [id number]. tel:+ tel: tel: [phone] Arthritis Arthritis Ankylosing [facility] Referring [facility] Health spondylitis of PA-C Provider: Associates Associates multiple sites 9 Kenya Ryan PLLC, 5794 PLLC in [address] [place] MENDEZ [facility] [address] [place] [address], giaOther [facility], [facility] [place], term (current) [place], [place], [place], drug therapy [place], [place], [id number], [id number], [place], [place]. [id number]. tel:+ tel: tel:[phone] Arthritis Arthritis Ankylosing [facility] Referring [facility] Health spondylitis of PA-C Provider: Associates Associates multiple sites 9 Kenya Arreola PLLC, 5794 PLLC in 5[address] [place] [facility], [facility], Clinic [address] [place], term (current) [place], [facility], drug therapy [place], Road, [id number], [id number], [place] [address]. tel:+ tel:+ tel:[phone] Arthritis Arthritis Ankylosing Oct-0 [facility] Referring [facility] Health spondylitis of 8 PA-C Provider: Associates Associates multiple sites 8 Kenya PatySanti Arreola PLLC, 5794 PLLC in 5794 [facility], [facility], [facility] 0 [place], term (current) [place], [facility], drug therapy [place], Road, [id number], [id number], [place] [address]. tel:+ tel:+ tel:[phone] Arthritis Arthritis Ankylosing Oct-0 [facility] Referring [facility] spondylitis of 2 PA-C Provider: Associates Associates multiple sites 8 Jeffrey. Arreola PLLC, 5794 PLLC in 5794 [facility], [facility], [facility] 17[address] [place], term drug [place], [place], therapy [place], Road, [id number], [id number], [place] [address]. tel:+ tel:+ tel:[phone] Arthritis Arthritis August-0 [facility] 7- PA-C Associates Associates 8 Kenya Cornelius PLLC, 5794 PLLC 5794 [facility], [place], [place], [place], [id number], [id number], [place]. tel:+ tel:[phone] Arthritis Arthritis Ankylosing Jul-2 [facility] Referring [facility] Health spondylitis of 3 PA-C Provider: Associates Associates multiple sites 8 Kenya Arreola PLLC, 5794 PLLC in spineOther [address] [place] [address] intermodal dispatcher drug [facility], therapy[facility] Health, Clinic [address] [place], algia [place], [facility], [place], Road, [id number], [id number], [place] [address]. tel:+[phone] tel:+[phone] tel:[phone] Arthritis Arthritis Ankylosing Dec- Antony Referring Health Health spondylitis of SPECIAL TESTER C Provider: Associates Associates multiple sites 7 Brandy BrownSanti Villegaser PLLC, 5[address] PLLC in [address] [place] [address] spineHill Crest Behavioral [facility] Servicesal [facility], giaOther [address], Clinic [address] [place], term drug [place], [facility], [facility], Road, [id number], mass index [id number], [place], [place] ([place]. [address]. tel:+[phone], tel:+[phone] tel:[phone] Arthritis Arthritis Ankylosing Nov- Zambrano PA C Referring Health Health spondylitis of Brandy Lui Provider: Associates Associates multiple sites 7 5794 Alimarrygher PLLC, 5794 PLLC in spineOther [facility] intermodal dispatcher drug [address], [facility], [facility] hospital[facility] [place], Clinic [address] [place], mass index [place], [facility], (BMI) [id number], Road, [id number], 29.0-29.9, [place]. [place], [place], [place] adult tel:[phone]. tel:[phone] tel:[phone] Arthritis Arthritis Ankylosing Drew- [place] Referring Health Health spondylitis of PA-C Provider: Associates Associates multiple sites 7 Kenya Mooregiovannier PLLC, 5794 PLLC in 5794 [facility] spineFibromyal [facility], giaOther [facility], Clinic [address] [place], term drug [place], [facility], [facility], Road, [id number], [id number], [place] [address]. tel: tel: tel:[phone] Arthritis Arthritis Ankylosing Apr-1 [place] Referring Health Health spondylitis of PA-C Provider: Associates Associates multiple sites 7 Kenya Arreola PLLC, 5794 PLLC in spineOther 5794 [facility] halfway drug [facility], [facility], Clinic [address] [place], algia [place], [facility], [place], Road, [id number], [id number], [place] [address]. tel: tel: tel:[phone] Arthritis Arthritis Ankylosing Dec-2 [place] Referring Health Health spondylitis of PA-C Provider: Associates Associates multiple sites 6 Kenya MATUTEC, 5794 PLLC in spineOther 5794 [facility] halfway drug [facility], [facility], Clinic [address] [place], algiaCervicalg [place], [place], [facility], Road, [id number], [id number], [place] [address]. tel: tel: tel:[phone] Arthritis Arthritis Ankylosing Sep-0 [place] Referring Health Health spondylitis of PA-C Provider: Associates Associates multiple sites 6 Kenya Arreola PLLC, 5794 PLLC in spineOther 5794 [facility], [facility] halfway drug [facility], therapy [place], Clinic 1780 [place], [place], [place], [place], Road, [id number], [id number], [place] [address]. tel:+ tel:[phone] tel:[phone] Arthritis Arthritis Ankylosing Drew-1 [facility] Referring [facility] Health spondylitis of 5-201 PA-C Provider: Santi Hancock multiple sites 6 Kenya NewmanSanti [place] PLLC, 5794 PLLC in spineOther 5794 [facility], [facility] intermodal dispatcher drug [facility] De Paz [place], therapyFibromy [place], Clinic [address] [place], algia [place], [place], [place], Road, [id number], [id number], [place] [address]. tel:+[phone] tel:+[phone] tel:[phone] Arthritis Arthritis Ankylosing Jun-3 [place] MENDEZ Referring [facility] Health spondylitis of 0-201 Connor. Provider: Associates Associates multiple sites 6 5794 [place] PLLC, 5794 PLLC in [facility], [facility] spineFibromyal [place], De [place]az [place], giaOther long [place], Clinic 1780 [place], term drug [place], [facility], therapy [id number], Road, [id number], [place]. [place], [place], tel:+ [phone]. tel:[phone] tel:[phone] Arthritis Arthritis Ankylosing Dec-1 [facility] Referring [facility] Health spondylitis of 6-201 PA-C Provider: Santi Associates multiple sites 5 Kenya NewmanSanti [place] PLLC, 5794 PLLC in 5794 [facility], [facility] spineFibromyal [facility] De [place]az [place], giaInsect bite [place], Clinic 1780 [place], (nonvenomous) [place], [place], of abdominal [place], Road, [id number], wall, [place] [id number], [place] [address]. tel:+[phone] tel:+[phone] tel:[phone] Arthritis Arthritis Apr-0 [place] Referring Health Health 2 PA-C Provider: Associates Associates 5 Kenya Arreola PLL, 5794 PLLC 5794 [facility], [facility] 178 [place], [place], [place], [place], Road, [id number], [id number], [place] [address]. tel:+ tel:+ tel:[phone] Arthritis Arthritis [place] SPECIAL TESTER-C Referring [facility] Health Gale. 5794 Provider: Associates Associates 5 [facility] [place] PLLC, 5794 [facility], [place], [place], [facility] 1779 [place], [address] [place] [address], [facility]. Road, [id number], tel:+ [place], [place], [address]. tel:+ tel:[phone] Arthritis Arthritis [facility] PA-C Provider: Associates Associates 4 Kenya Arreola PLLC, 5794 PLLC 5794 [facility], [facility] 1779 [place], [place], [place], [place], Road, [id number], [id number], [place] [address]. tel:+ tel:+ tel:[phone] Arthritis Arthritis [facility] Referring [facility] Health PA-C Provider: Associates Associates 4 Jeffrey. Arreola PLLC, 5794 PLLC 5794 [facility], [facility] 178 [place], [place], [place], [place], Road, [id number], [id number], [place] [address]. tel:+4 tel:+ tel:[phone] Arthritis Arthritis Apr-1 [place] SPECIAL TESTER-C Referring Health Health Gale. 5794 Provider: Associates Santi 4 [facility], 5794 [facility], [place], [place], Clinic 1780 [place], [id number], [facility]. Road, [id number], tel:[phone] [facility] 758574 [address]. tel:+[phone] tel:[phone] Arthritis Arthritis Oct-2 [facility] SPECIAL TESTER-C Associates Associates 3 [facility] 310 PLLC, 5794 PLLC [facility], [facility], [place], [place], [id number], [id number], . [place] tel:+[phone] tel:[phone] Arthritis Arthritis Jan-2 [place] SPECIAL TESTER-C Referring [facility] Gale. 5794 Provider: Associates Santi 3 [facility], 5794 [facility], [place], [place], Clinic 1780 [place], [id number], [facility]. Road, [id number], tel:[phone] [facility] [phone] [address]. tel:+[phone] tel:[phone] Arthritis Arthritis Nov-2 [place] SPECIAL TESTER-C Referring Health Health Gale. 5794 Provider: Associates Santi 3 [facility], 5794 PLLC [place], [facility], [facility], [place], [place], Clinic 1780 [place], [id number], [facility]. Road, [id number], tel:[phone] [facility] [phone] [address]. tel:+[phone] tel:[phone] Arthritis Arthritis Apr-0 [place] SPECIAL TESTER-C Referring [facility] Gale. 5794 Provider: Associates Associates 3 [facility] [place] PLLC, 5794 PLLC [place], [place], [facility] [address] [place] [address], [id number], [facility]. Road, [id number], tel:+[phone] [place], [place], [address]. tel:+ tel:[phone] Arthritis Arthritis [facility] PA-C Provider: Associates Associates 2 Alpesh. [place] PLLC, 5794 PLLC 5794 [facility], [address], Road, [id number], [id number], [place] [address]. tel:+ tel:+ tel:[phone] Arthritis Arthritis [facility] PA-C Provider: Associates Associates 2 Alpesh. [place] PLLC, 5794 PLLC 5794 [facility], [facility] 1780 [place], [place], [place], [place], Road, [id number], [id number], [place] [address]. tel:+ tel:+ tel:[phone] Arthritis Arthritis [place] SPECIAL TESTER-C [facility] Gale. 5794 Provider: Associates Associates 1 [facility] [place] PLLC, 5794 PLLC [place], [place], [place], [facility] 1780 [place], [id number], [facility]. Road, [id number], tel:+[phone] [facility] [phone]. tel:+315 tel:[phone] Family History Family Member Diagnosis Age At Onset Paternal grandmother Mother Cousins Mother Rheumatoid arthritis Nephew Ankylosing Spondylitis Father Daughter Grandfathers Immunizations Vaccine Date Status Comments Influenza, split virus, administered Note: Invalid documented admin injectable, 3 years and older date was . ; Fluvirin [id number] Source: Other Provider Influenza, split virus, administered Source: Other Registry injectable, 3 years and older Fluvirin [id number] Influenza virus vaccine, administered Source: Other Provider [...] (PPV23) Payers Payer name Insurance type Covered libertarian ID Authorization(s) Medicare MB [id number] Medicaid MC [id number] Social History Type Description Quantity Date Captured [...] No information Instructions Date Instruction Additional Information Risks/benefits of medications reviewed Discussed importance of holding DMARDs/ biologics if patient develops an infection and to notify the treating physician Risks / benefits of Opioid treatment reviewed. Risks/benefits of medications reviewed Discussed importance of holding DMARDs/ biologics if patient develops an infection and to notify the treating physician Risks/benefits of medications reviewed call if symptoms worsen Labs ordered to check disease activity. Labs ordered to check blood counts, liver and kidney functions to monitor safety of medication. Discussed / Reviewed Labs Conservative medical care measures discussed. Moderate activities regarding symptomatic joints. Lifestyle education regarding diet Related to Body mass index ( BMI) 29.0-29.9, adult Reviewed importance of compliance/adherence to medications prescribed Risks/benefits of medications reviewed Stretching call if symptoms worsen Conservative medical care measures discussed. Moderate activities regarding symptomatic joints. For sleep, the need to add adequate relaxation, rest and exercise was discussed Yoga Avoid live vaccines Discussed importance of holding DMARDs/ biologics if patient develops an infection and to notify the treating physician Discussed the need to hold DMARDS/Biologics before and after surgery/procedure. Lifestyle education regarding diet Related to Body mass index ( BMI) 29.0-29.9, adult Risks/benefits of medications reviewed Discussed importance of holding DMARDs/ biologics if patient develops an infection and to notify the treating physician Labs ordered to check disease activity. Labs ordered to check blood counts, liver and kidney functions to monitor safety of medication. Discussed / Reviewed Labs Risks/benefits of medications reviewed Stretching Discussed importance of holding DMARDs/ biologics if patient develops an infection and to notify the treating physician
--- OUTSIDE RECORDS SUMMARY | 2019-05-17 16:09 | XMS REPORT | Continuity of Care Document ---
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 Problems Description No Information Available Social History Type Date Description Comments Sex Unknown Cigarette Use Quit 10 Years Ago Tobacco Use Start: Unknown Never Smoked Cigars Tobacco Use Start: Unknown Never Smoked A Pipe Smoking Status Reviewed: 05/03/19 Never Smoked A Pipe Smokeless Tobacco Never Used Smokeless Tobacco ETOH Use Occasionally consumes alcohol Allergies, Adverse Reactions, Alerts Active Allergies Reaction Severity Comments Date Penicillin hives 11/12/2010 Medications Active Medications SIG Qnty Indications Ordering Date Provider Percocet 1 tablet by mouth 28tabs [facility] 04/12/2019 5-325mg Tablets every 6 hours as MD Daniel needed pain Aspirin 1 tab by mouth 14tabs [facility] 04/06/2019 325mg Tablets twice a day MD Daniel Zofran 1 tab by mouth 30tabs [facility] 04/06/2019 4mg Tablets every 6 hours as MD Daniel needed Cyclobenzaprine HCL 1 tab by mouth 60tabs [facility] 04/06/2019 10mg three times a day MD [...] every Unknown 5mg Tablets day History Medications Keflex 1 cap by mouth 21caps Memo Sanchez 04/06/2019 - 500mg three times a day 05/02/2019 Capsules Hydrocodone-Acetami 1 or 2 tabs by 40tabs Memo Sanchez, 04/06/2019 - nophen mouth every 6-8 04/18/2019 5-325mg hours as needed Tablets for pain Percocet 1-2 by mouth 30tabs Memo Sanchez, 03/22/2019 - 5-325mg every 4-6 hours 04/06/2019 Tablets as needed pain Immunizations Description No Information Available Vital Signs Date Vital Result Comment 05/03/2019 10:16am Height 74 inches 6'2" Weight 190.00 lb Heart Rate 102 /min BP Systolic Sitting 150 mmHg BP Diastolic Sitting 96 mmHg Body Temperature 98.1 F BMI (Body Mass Index) 24.4 kg/m2 04/19/2019 10:53am Height 74 inches 6'2" Heart Rate 114 /min BP Systolic Sitting 132 mmHg BP Diastolic Sitting 92 mmHg Body Temperature 98.3 F Results Test Acquired Date Facility Test Result H/L Range Note Xray 03/24/2019 [facility] MRI Ankle Left W/O <pending> [address] [place] [id number] [phone] Procedures Date Code Description Status 05/17/2019 18830 Short Leg Cast Completed 04/12/2019 69393 Short Leg Cast Completed 04/06/2019 05897 Repair,Primary Open Or Percutaneous,Ruptured Achilles Completed Tendon 04/06/2019 22715 Repair,Primary Open Or Percutaneous,Ruptured Achilles Completed Tendon 04/06/2019 20947 Repair,Primary Open Or Percutaneous,Ruptured Achilles Completed Tendon Medical Devices Description No Information Available Encounters Type Date Location Provider Dx Diagnosis Office Visit 04/19/2019 [facility] Memo Ren S86.012D Strain of left 10:30a at [facility] Sanchez MD Achilles tendon, subsequent encounter S86.011D Strain of right Achilles tendon, subsequent encounter Office Visit 04/12/2019 11:00a [place] Memo Ren S86.011A Strain of right Orthopedics at MD Daniel Achilles [place] tendon, initial encounter S86.012D Strain of left Achilles tendon, subsequent encounter Office Visit 03/22/2019 9:00a Shaina Ren M76.61 Achilles Orthopedics at [facility] tendinitis, right [place] leg S86.012A Strain of left Achilles tendon, initial encounter Assessments Date Code Description Provider 05/17/2019 S86.012D Strain of left Achilles tendon, subsequent Memo Sanchez MD encounter 05/17/2019 S86.001D Unspecified injury of right Achilles Memo Sanchez MD tendon, subsequent encounter 05/17/2019 S91.002A Unspecified open wound, left ankle, Memo Sanchez MD initial encounter 05/03/2019 S86.012D Strain of left Achilles tendon, subsequent Memo Sanchez MD encounter 05/03/2019 S86.001D Unspecified injury of right Achilles Memo Sanchez MD tendon, subsequent encounter 04/19/2019 S86.012D Strain of left Achilles tendon, subsequent Memo Sanchez MD encounter 04/19/2019 S86.011D Strain of right Achilles tendon, Memo Sanchez MD subsequent encounter 04/12/2019 S86.011A Strain of right Achilles tendon, initial Memo Sanchez MD encounter 04/12/2019 S86.012D Strain of left Achilles tendon, subsequent Memo Sanchez MD encounter 04/06/2019 S86.012A Strain of left Achilles tendon, initial LAQUITA Ramirez encounter 04/06/2019 S86.012A Strain of left Achilles tendon, initial Memo Sanchez MD encounter 04/06/2019 S86.012A Strain of left Achilles tendon, initial LAQUITA Ramirez encounter 03/22/2019 M76.61 Achilles tendinitis, right leg Memo Sanchez MD 03/22/2019 S86.012A Strain of left Achilles tendon, initial Memo Sanchez MD encounter Plan of Treatment 05/17/2019 - GRANT Huffman86.012D Strain of left Achilles tendon, subsequent encounterNew Labs:Wound Culture/Sensi, Ordered: 02/10/20Follow up: Transfer [place] [facility] [place] [id number] Unspecified injury of right Achilles tendon, subsequent [id number] Unspecified open wound, left ankle , initial encounter Functional Status Description No Information Available Mental Status Description No Information Available Referrals Description No Information Available
--- OUTSIDE RECORDS SUMMARY | 2019-05-17 16:09 | XMS REPORT | Continuity of Care Document ---
:1965 External Reference #:[id number] Author Name Memo Sanchez MD (transmitted by agent of provider Selma Azul) Address [address] [place] [id number] Care Team Providers Name Role Phone Andrey Little MD - Internal Care Team Information Stress Test Technician Medicine Felicia Peters RPA-C - Medical Care Team Information Stress Test Technician [phone] Problems Description No Information Available Social History Type Date Description Comments Sex Unknown Cigarette Use Quit 10 Years Ago Tobacco Use Start: Unknown Never Smoked Cigars Tobacco Use Start: Unknown Never Smoked A Pipe Smoking Status Reviewed: 03/22/19 Never Smoked A Pipe Smokeless Tobacco Never Used Smokeless Tobacco ETOH Use Occasionally consumes alcohol Allergies, Adverse Reactions, Alerts Active Allergies Reaction Severity Comments Date Penicillin hives 11/12/2010 Medications Active Medications SIG Qnty Indications Ordering Date Provider Keflex 1 cap by mouth 21caps [facility] 04/06/2019 500mg Capsules three times a day MD Daniel Aspirin 1 tab by mouth 14tabs [facility] 04/06/2019 325mg Tablets twice a day MD Daniel Hydrocodone-Acetaminop 1 or 2 tabs by 40tabs [facility] 04/06/2019 hen mouth every 6-8 MD Daniel 5-325mg Tablets hours as needed for pain Zofran 1 tab by mouth 30tabs [facility] 04/06/2019 4mg Tablets every 6 hours as MD Daniel needed Cyclobenzaprine HCL 1 tab by mouth 60tabs [facility] 04/06/2019 10mg three times a day MD [...] every Unknown 5mg Tablets day History Medications Percocet 1-2 by mouth 30tabs Memo Sanchez, 03/22/2019 - 5-325mg every 4-6 hours 04/06/2019 Tablets as needed pain Immunizations Description No Information Available Vital Signs Date Vital Result Comment 03/22/2019 8:39am Height 74 inches 6'2" Weight 195.00 lb Heart Rate 113 /min BP Systolic Sitting 150 mmHg BP Diastolic Sitting 100 mmHg Body Temperature 98.0 F BMI (Body Mass Index) 25.0 kg/m2 Results Test Acquired Date Facility Test Result H/L Range Note Xray 03/24/2019 [facility] MRI Ankle Left W/O <pending> [facility] [place] [address] [phone] Procedures Description No Information Available Medical Devices Description No Information Available Encounters Type Date Location Provider Dx Diagnosis Office Visit 03/22/2019 [facility] Memo Ann76.61 Achilles 9:00a at Chan Sanchez MD tendinitis, right leg S86.012A Strain of left Achilles tendon, initial encounter Assessments Date Code Description Provider 04/12/2019 S86.011A Strain of right Achilles tendon, initial Memo Sanchez MD encounter 04/12/2019 S86.012D Strain of left Achilles tendon, subsequent Memo Sanchez MD encounter 03/22/2019 M76.61 Achilles tendinitis, right leg Memo Sanchez MD 03/22/2019 S86.012A Strain of left Achilles tendon, initial Memo Sanchez MD encounter Plan of Treatment Future Appointment(s):04/19/2019 10:30 am - Memo Sanchez MD at [facility] at [facility]/06/2020 - GRANT Huffman86.011A Strain of right Achilles tendon, initial encounterNew Xrays:MRI Ankle Right W/O, Ordered: 04/12/19Follow up:Follow up: after MRIS86.012D Strain of left Achilles tendon , subsequent encounter Functional Status Description No Information Available Mental Status Description No Information Available Referrals Description No Information Available
--- OUTSIDE RECORDS SUMMARY | 2019-05-17 16:09 | XMS REPORT | Continuity of Care Document ---
:1965 Author Organization [facility] Address [address], [place] [id number] Phone Care Team Providers Name Role Phone [...] route 3 times Reference #: every day [id number] COSENTYX 150MG/ML INJECT 1 SYRINGE - Active INJ SUBCUTANEOUSLY EVERY 4 WEEKS hydrocodone 5 take 1/2 tablet by - Active Reference #: mg-acetaminophen 325 oral route every [id number] MDD mg tablet other day ONLY IF [...] 3 times Active Reference #: every day [id number] cyclobenzaprine 5 mg take 1 - 2 [...] spondylitis of multiple sites in spine Other senior living (current) drug therapy Fibromyalgia Ankylosing spondylitis of multiple sites in spine Fibromyalgia Other senior living (current) drug therapy Ankylosing spondylitis of multiple sites in spine Fibromyalgia Other senior living (current) drug therapy Ankylosing spondylitis of multiple sites in spine Fibromyalgia Other senior living (current) drug therapy Ankylosing spondylitis of multiple sites in spine Fibromyalgia Other senior living drug therapy Ankylosing spondylitis of multiple sites in spine Other termite control representative drug therapy Fibromyalgia Ankylosing spondylitis of multiple sites in spine Fibromyalgia Other termite control representative drug therapy Ankylosing spondylitis of multiple sites in spine Other termite control representative drug therapy Ankylosing spondylitis of multiple sites in spine Fibromyalgia Other senior living drug therapy Ankylosing spondylitis of multiple sites in spine Other termite control representative drug therapy Fibromyalgia Ankylosing spondylitis of multiple sites in spine Other senior living drug therapy Fibromyalgia Cervicalgia Ankylosing spondylitis of multiple sites in spine Other senior living drug therapy Ankylosing spondylitis of multiple sites in spine Other termite control representative drug therapy Fibromyalgia Ankylosing spondylitis of multiple sites in spine Fibromyalgia Other termite control representative drug therapy Ankylosing spondylitis of multiple sites in spine Fibromyalgia Insect bite (nonvenomous) of abdominal wall, sequela Fibromyositis - Active Mapped from [facility] Chronic Conditions table on 07/29/2014 by the ICD9 to [employer] Bul[employer] Mapping [employer]. The mapped diagnosis code was Fibromyalgia / Myalgia, 729.1, added by Kenya Mirza, with responsible provider Kenya López PA-C. Onset date 01/11/2014; last addressed on 01/11/2014. Ankylosing spondylitis - Active Mapped from [facility] Chronic Conditions table on 06/14/2014 by the [...] For Visit Copied on Encounter Arthritis Arthritis [facility] 9 Kenya Cornelius PLLC, 5794 PLLC 5794 [facility], [place], [place], [place], [id number], [id number], [place]. tel:[phone] tel:[phone]ritis [facility] 9 Kenya Cornelius [facility]C, 5794 PLLC 5794 [facility], [place], [place], [place], [id number], [id number], [place]. tel:[phone] tel:[phone] [facility] 9 Kenya Cornelius [facility]C, 5794 PLLC 5[address] [facility], [place], [place], [place], [id number], [id number], [place]. tel:[phone] tel:[phone] [facility] 9 Kenya Cornelius [facility], 5794 PLLC 5[address] [facility], [place], [place], [place], [id number], [id number], [place]. tel:[phone] tel:[phone] Arthritis Arthritis [facility] Health PA-C [facility] 9 Kenya Cornelius PLLC, 5794 PLLC [address] [facility], [place], [place], [place], [id number], [id number], [place]. tel:+ tel:[phone] Arthritis Arthritis Ankylosing [facility] Referring [facility] Health spondylitis of PA-C Provider: Associates Associates multiple sites 9 Kenya Ryan PLLC, 5794 PLLC in spineOther 5[address] [place] MENDEZ, [facility] [address] [place] [address], (current) drug [place], [facility] [place], therapyFibromy [place], [place], [place], [place], [place], [id number], [id number], [place], [place]. [id number]. tel: tel: [phone] Arthritis Arthritis Ankylosing [facility] Referring [facility] Health spondylitis of PA-C Provider: Associates Associates multiple sites 9 Kenya Ryan PLLC, 5794 PLLC in 5794 [place] MENDEZ, [address], [facility], [facility] [place], term (current) [place], [place], [place], drug therapy [place], [place], [id number], [id number], [place], [place]. [id number]. tel:+ tel: tel:[phone] Arthritis Arthritis Ankylosing [facility] Referring [facility] Health spondylitis of PA-C Provider: Associates Associates multiple sites 9 Kenya Arreola PLLC, 5794 PLLC in 5794 [facility], [facility] spineFibromyal [facility], [facility], Clinic [address] [place], term (current) [place], [place], drug therapy [place], Road, [id number], [id number], [place] [address]. tel:+ tel:[phone] tel:[phone] Arthritis Arthritis Ankylosing Oct-0 [facility] Referring [facility] Health spondylitis of 8 PA-C Provider: Associates Associates multiple sites 8 Kenya Arreola PLLC, 5[address] PLLC in [address] [place] [address], [facility], Clinic [address] [place], term (current) [place], [place], drug therapy [place], Road, [id number], [id number], [place] [address]. tel:[phone] tel:[phone] tel:[phone] Arthritis Arthritis Ankylosing Oct-0 [facility] Referring [facility] Health spondylitis of 2 PA-C Provider: Associates Associates multiple sites 8 Rhondamarryevangelina PLLC, 5794 PLLC in [address] [place] [address], [facility], Clinic [address] [place], term drug [place], [place], therapy [place], Road, [id number], [id number], [place] [address]. tel:[phone] tel:[phone] tel:[phone] Arthritis Arthritis May-0 [facility] 7- PA-C Associates [facility] 8 Kenya NewmanSanti PLLC, 5794 PLLC [address] [facility], [place], [place], [place], [place], [id number], [id number], [place]. tel:[phone] tel:[phone] Arthritis Arthritis Ankylosing Apr-2 [facility] Referring [facility] spondylitis of 3- PA-C Provider: Associates Associates multiple sites 8 Kenya NewmanSanti Ellismarryevangelina PLLC, 5794 PLLC in spineOther [address] [place] [address] term drug [facility], [facility], Clinic [address] [place], algia [place], [facility], [place], Road, [id number], [id number], [place] [address]. tel:[phone] tel:[phone] tel:[phone] Arthritis Arthritis Ankylosing Dec- Antony Referring Health Health spondylitis of PULLBOAT ENGINEER C Provider: Associates Associates multiple sites 7 Brandy Ellismarrygher PLLC, 5794 PLLC in 5794 [facility], [facility], Clinic [address] [place], term drug [place], [facility], [facility] [place], Road, [id number], mass index [id number], [place], [place], [place] ([place]) [place]. [address]. tel:+ [phone], tel:[phone] tel:[phone] Arthritis Arthritis Ankylosing Aug- Zambrano PA C Referring Health Health spondylitis of Brandy Lui Provider: Associates Associates multiple sites 7 5794 Alimarrygher PLLC, 5794 PLLC in spineOther [facility] senior living [address], [facility], [facility] [place], Clinic [address] [place], mass index [place], [facility], (BMI) [id number], Road, [id number], 29.0-29.9, [place]. [place], [place], [place] adult tel:[phone]. tel:[phone] tel:[phone] Arthritis Arthritis Ankylosing Drew- [place] Referring Health Health spondylitis of PA-C Provider: Associates Associates multiple sites 7 Kenya Cornelius Alimarrygher PLLC, 5794 PLLC in 5794 [facility], [facility], Clinic [address] [place], term drug [place], [facility], therapy [place], Road, [id number], [id number], [place] [address]. tel:+ tel:+ tel:[phone] Arthritis Arthritis Ankylosing Apr-1 [place] Referring Health Health spondylitis of PA-C Provider: Associates Associates multiple sites 7 Kenya Arreola PLLC, 5794 PLLC in spineOther 5794 [facility], [facility] termite control representative drug [facility], [facility], Clinic [address] [place], algia [place], [facility], [place], Road, [id number], [id number], [place] [address]. tel:+ tel:+ tel:[phone] Arthritis Arthritis Ankylosing Dec-2 [place] Referring Health Health spondylitis of PA-C Provider: Associates Associates multiple sites 6 Kenya Arreola PLLC, 5794 PLLC in spineOther 5794 [facility] senior living drug [facility], [facility], Clinic [address] [place], algiaCervicalg [place], [place], [facility], Road, [id number], [id number], [place] [address]. tel:+ tel:+ tel:[phone] Arthritis Arthritis Ankylosing Sep-0 [place] Referring Health Health spondylitis of PA-C Provider: Associates Associates multiple sites 6 Kenya NewmanSanti [place] PLLC, 5794 PLLC in spineOther 5794 Mohyuddin, [facility] termite control representative drug [facility], therapy [place], Clinic [address] [place], [place], [place], [place], Road, [id number], [id number], [place] [address]. tel:+ tel:+[phone] tel:[phone] Arthritis Arthritis Ankylosing Drew-1 [place] Referring Health Health spondylitis of 5- PA-C Provider: Associates Associates multiple sites 6 Kenya NewmanSanti Ellishanksangeeta PLLC, 5794 PLLC in spineOther 5794 [facility], [facility] termite control representative drug [facility], therapyFibro[facility], Clinic [address] [place], algia [place], [place], [place], Road, [id number], [id number], [place] [address]. tel:+[phone] tel:+[phone] tel:[phone] Arthritis Arthritis Ankylosing Jun-3 [place] MENDEZ Referring Health Health spondylitis of 0- Connor. Provider: Associates Associates multiple sites 6 5794 Alihanker PLLC, 5794 PLLC in [facility], [facility]romy[facility], [facility], giaOther long [place], Clinic [address] [place], term drug [place], [facility], therapy [id number], Road, [id number], . [place], [place], tel:[phone]. tel:[phone] tel:[phone] Arthritis Arthritis Ankylosing Dec- [place] Referring Health Health spondylitis of PA-C Provider: Associates Associates multiple sites 5 Kenya Arreola PLLC, 5794 PLLC in [address] [place] [address] spineSaint [facility], giaInsect bite [place], Clinic [address] [place], (nonvenomous) [place], [place], of abdominal [place], Road, [id number], wall, sequela [id number], [place] [address]. tel:+[phone] tel:+[phone] tel:[phone] Arthritis Arthritis Apr-0 [place] Referring Health Health 2-201 PA-C Provider: Associates Associates 5 Kenya Arreola PLLC, 5794 PLLC 5794 [facility], [facility], [facility] [address] [place], [place], [place], [place], Road, [id number], [id number], [place] [address]. tel:+ tel:+ tel:[phone] Arthritis Arthritis Mir- Edmond PULLBOAT ENGINEER-C Referring Health Health Gale. 5794 Provider: Associates Santi 5 [facility] [place] PLLC, 5794 PLLC [place], [place], [place], [facility] [address] [place], [id number], [facility]. Road, [id number], tel:+ [place], [place], [address]. tel:+ tel:[phone] Arthritis Arthritis Jan- [facility] Referring Health Health PA-C Provider: Associates Santi 4 Kenya Arreola PLLC, 5794 PLLC 5794 [facility], [facility] [address] [place], [place], [place], [place], Road, [id number], [id number], [place] [address]. tel:+ tel:+ tel:[phone] Arthritis Arthritis [facility] Referring Health Health PA-C Provider: Santi Hancock 4 Jeffrey. Arreola PLLC, 5794 PLLC 5794 [facility], [facility] [address] [place], [place], [place], [place], Road, [id number], [id number], [place] [address]. tel:+ tel:+ tel:[phone] Arthritis Arthritis Jul- Edmond PULLBOAT ENGINEER-C Referring Health Health [place]. 5794 Provider: Santi Hancock 4 [facility], 5794 [facility], [facility], [facility], [place], [place], Clinic [address] [place], [id number], [facility]. Road, [id number], tel:[phone] [facility] [address]. tel:+[phone] tel:[phone] Arthritis Arthritis Oct-2 [facility] 9 PULLBOAT ENGINEER-C Associates Associates 3 [facility]. 310 PLLC, 5794 PLLC S Ignacia [facility], [place], [place], [place], [place], [place], [id number], [id number], . [place] tel:+[phone] tel:[phone] Arthritis Arthritis Jan-2 Edmond PULLBOAT ENGINEER-C Referring [facility] Health 5- Gale. 5794 Provider: Associates Associates 3 [facility], [address] [place] [address], [facility], [place], [place], Clinic [address] [place], [id number], [facility]. Road, [id number], tel:+[phone] [facility] [address]. tel:+[phone] tel:[phone] Arthritis Arthritis Nov-2 Edmond PULLBOAT ENGINEER-C Referring [facility] Health [place]. 5794 Provider: Associates [facility] 3 [facility], 5794 [facility], [facility], [place], [place], Clinic [address] [place], [id number], [facility]. Road, [id number], tel:+[phone] [facility] 4664[address]. tel:+[phone] tel:[phone] Arthritis Arthritis Apr-0 Edmond PULLBOAT ENGINEER-C Referring [facility] Health 2- Gale. 5794 Provider: Associates [facility] 3 [facility], 5794 [facility], [facility], [place], [place], Clinic [address] [place] [address], [id number], [facility]. Road, [id number], tel:+[phone] [facility] [address]. tel:+ tel:[phone] Arthritis Arthritis [facility] 8 PA-C Provider: Associates Santi 2 Alpesh. [place] [facility], 5794 PLLC 5794 [facility], [facility] 17[address] [place], [place], [place], [place], Road, [id number], [id number], [place]. [address]. tel:+ tel:+ tel:[phone] Arthritis Arthritis [facility] 1 PA-C Provider: Associates Associates 2 Alpesh. [place] PLLC, 5794 PLLC 5794 [facility], [facility] 17[address] [place], [place], [place], [place], Road, [id number], [id number], [place]. [address]. tel:+ tel:+ tel:[phone] Arthritis Arthritis Edmond PULLBOAT ENGINEER-C [facility] 6201 [place]. 5794 Provider: Associates Associates 1 [facility] [place] [facility], 5794 [facility] [address] [place], [id number], [facility]. Road, [id number], tel:+[phone] [facility] 9[address]. tel:+ tel:[phone] Family History Family Member Diagnosis Age At Onset Paternal grandmother Mother Cousins Mother Rheumatoid arthritis Nephew Ankylosing Spondylitis Father Daughter Grandfathers Immunizations Vaccine Date Status Comments Influenza, split virus, administered Note: Invalid documented admin injectable, 3 years and older date was . ; Fluvirin Source: Other Provider Influenza, split virus, administered Source: Other Registry injectable, 3 years and older Fluvirin [id number] Influenza virus vaccine, administered Source: Other Provider [...] Insurance type Covered libertarian ID Authorization(s) Medicare [id number] Medicaid MC [id number] Social History Type Description Quantity Date Captured Comments Sex Male Vital Signs Date / Height [...] No information Instructions Date Instruction Additional Information Discussed importance of holding DMARDs/ biologics if patient develops an infection and to notify the treating physician Risks / benefits of Opioid treatment reviewed. Risks/benefits of medications reviewed Risks/benefits of medications reviewed Discussed importance of holding DMARDs/ biologics if patient develops an infection and to notify the treating physician Risks/benefits of medications reviewed Labs ordered to check disease activity. Labs ordered to check blood counts, liver and kidney functions to monitor safety of medication. Discussed / Reviewed Labs call if symptoms worsen Conservative medical care [...] BMI) 29.0-29.9, adult Discussed / Reviewed Labs Risks/benefits of medications reviewed Discussed importance of [...]
--- OUTSIDE RECORDS SUMMARY | 2019-05-17 16:09 | XMS REPORT | Continuity of Care Document ---
:1965 External Reference #:[id number] Author Name Memo Sanchez MD (transmitted by agent of provider Cherise Marrero) Address [address] [place] [id number] Care Team Providers Name Role Phone Andrey Little MD - Internal Care Team Information New Car Make Ready Worker Medicine Felicia Peters RPA-C - Medical Care Team Information New Car Make Ready Worker Problems Description No Information Available Social History [...] Provider Percocet 1 tablet by mouth 28tabs [facility] 04/12/2019 5-325mg Tablets every 6 hours as MD Daniel needed pain Aspirin 1 tab by mouth 14tabs [facility] 04/06/2019 325mg Tablets twice a day MD Daniel Zofran 1 tab by mouth 30tabs [facility] 04/06/2019 4mg Tablets every 6 hours as MD Daniel needed Cyclobenzaprine HCL 1 tab by mouth 60tabs [facility] 04/06/2019 10mg three times a day [...] Keflex 1 cap by mouth 21caps Memo Sanhcez, 04/06/2019 - 500mg three times a day [...] Test Result H/L Range Note Xray 03/24/2019 [facility] MRI Ankle Left W/O <pending> [address] [place] [address] [phone] Procedures Date Code Description Status 04/12/2019 44329 Short Leg Cast Completed Medical Devices Description No Information Available Encounters Type Date Location Provider Dx Diagnosis Office Visit 03/22/2019 [facility] Memo Ren M76.61 Achilles 9:00a at Chan Sanchez MD tendinitis, right leg S86.012A Strain of left Achilles tendon, initial encounter Assessments Date Code Description Provider 05/03/2019 S86.012D Strain of left Achilles tendon, [...] Sanchez MD encounter Plan of Treatment Future Appointment(s):05/17/2019 10:45 am - Memo Sanchez MD at [facility] at Mapdckdn38/29/2020 2:00 pm - LAQUITA Swartz at [facility] at Obdbqd6105/05/2019 2:00 pm - Memo Sanchez MD at [facility] at Jcinem3105/03/2019 - Memo Sanchez MDS86.012D Strain of left Achilles tendon, subsequent encounterFollow up:Follow up: to OR this week Follow up in clinic in 2 bukrvO65.001D Unspecified injury of right Achilles tendon, subsequent encounter Functional Status Description No Information Available Mental Status Description No Information Available Referrals Description No Information Available
--- OUTSIDE RECORDS SUMMARY | 2019-05-17 16:09 | XMS REPORT | Continuity of Care Document ---
:1965 External Reference #:[id number] Author Name Memo Sanchez MD (transmitted by agent of provider Cherise Marrero) Address [address] [place] [id number] Care Team Providers Name Role Phone Andrey Little MD - Internal Care Team Information Technical Trainer [phone] Medicine Problems Description No Information Available Social History [...] Medications SIG Qnty Indications Ordering Date Provider Ondina 1 po qd 30tabs Unknown 180mg Tablets Trazodone HCL 1 po qhs Unknown 100mg Tablets Singulair 1 po qd 30tabs Unknown 10mg Tablets Fluticasone 1 spray each nostril 3units Unknown Propionate in am 50mcg/Act Suspension Enbrel 1 ml subcutaneous 8units Unknown 25mg Kit injection 2 times a week Prednisone 1 by mouth every day Unknown 5mg Tablets Immunizations Description No Information Available Vital Signs Date Vital Result Comment 03/22/2019 8:39am Height 74 inches 6'2" Weight 195.00 lb Heart Rate 113 /min BP Systolic Sitting 150 mmHg BP Diastolic Sitting 100 mmHg Body Temperature 98.0 F BMI (Body Mass Index) 25.0 kg/m2 Results Description No Information Available Procedures Description No Information Available Medical Devices Description No Information Available Encounters Description No Information Available Assessments Date Code Description Provider 03/22/2019 M76.61 Achilles tendinitis, right leg Memo Sanchez MD 03/22/2019 S86.012A Strain of left Achilles tendon, initial Memo Sanchez MD encounter Plan of Treatment 03/22/2019 - Memo Sanchez, MDM76.61 Achilles tendinitis, right legNew Xrays:Ankles Bilateral, Ordered: 03/22/19MRI Ankle Left W/O, Ordered: S86.012A Strain of left Achilles tendon, initial encounterNew Xrays:Ankles Bilateral, Ordered: 03/22/19Follow up:Follow up: Functional Status Description No Information Available Mental Status Description No Information Available Referrals Description No Information Available
--- OUTSIDE RECORDS SUMMARY | 2019-05-17 16:09 | XMS REPORT | Continuity of Care Document ---
:1965 Author Organization [facility] Address [address], [place] [id number] Phone Care Team Providers Name Role Phone [...] route 3 times Reference #: every day [id number] COSENTYX 150MG/ML INJECT 1 SYRINGE - Active INJ SUBCUTANEOUSLY EVERY 4 WEEKS hydrocodone 5 take 1/2 tablet by - Active Reference #: mg-acetaminophen 325 oral route every [id number] MDD mg tablet other day ONLY IF [...] 3 times Active Reference #: every day [id number] Lyrica 100 mg take 1 capsule by 100 MG - No Longer MDD=3 capsule oral route 3 times Active Reference #: every day [id number] cyclobenzaprine 5 mg take 1 - 2 [...] spondylitis of multiple sites in spine Other intermission coordinator (current) drug therapy Fibromyalgia Ankylosing spondylitis of multiple sites in spine Fibromyalgia Other intermission coordinator (current) drug therapy Ankylosing spondylitis of multiple sites in spine Fibromyalgia Other intermission coordinator (current) drug therapy Ankylosing spondylitis of multiple sites in spine Fibromyalgia Other intermission coordinator (current) drug therapy Ankylosing spondylitis of multiple sites in spine Fibromyalgia Other intermission coordinator drug therapy Ankylosing spondylitis of multiple sites in spine Other snf drug therapy Fibromyalgia Ankylosing spondylitis of multiple sites in spine Fibromyalgia Other snf drug therapy Ankylosing spondylitis of multiple sites in spine Other snf drug therapy Ankylosing spondylitis of multiple sites in spine Fibromyalgia Other snf drug therapy Ankylosing spondylitis of multiple sites in spine Other intermission coordinator drug therapy Fibromyalgia Ankylosing spondylitis of multiple sites in spine Other intermission coordinator drug therapy Fibromyalgia Cervicalgia Ankylosing spondylitis of multiple sites in spine Other snf drug therapy Ankylosing spondylitis of multiple sites in spine Other intermission coordinator drug therapy Fibromyalgia Ankylosing spondylitis of multiple sites in spine Fibromyalgia Other intermission coordinator drug therapy Ankylosing spondylitis of multiple sites [...] 01/11/2014. Ankylosing spondylitis - Active Mapped from [facility] Chronic Conditions table on 06/14/2014 by the [...] For Visit Copied on Encounter [facility] [employer] [facility] 9 Kenya B. PLLC, 5794 PLLC [address] [facility], [place], [place], [id number], [id number], [place]. tel:[phone] tel:[phone] Arthritis Arthritis [facility] [employer] [facility] LAQUITA [facility] 9 Kenya B. PLLC, 5794 PLLC [address] [facility], [place], [id number], [id number], [place]. tel:[phone] tel:[phone] Arthritis Arthritis [facility] [employer] [facility] LAQUITA [facility] 9 Kenya B. PLLC, 5794 PLLC [address] [facility], [place], [id number], [id number], [place]. tel:[phone] tel:[phone] Arthritis Arthritis [facility] [employer] [facility] DAVID [facility] 9 Kenya B. PLLC, 5794 PLLC [address] [place], [place], [place], [place], [id number], [id number], [place]. tel:+ tel:[phone] Arthritis Arthritis Sep- [facility] PA-C [facility] 9 Kenya Cornelius PLLC, 5794 PLLC [address] [facility], [place], [place], [place], [id number], [id number], [place]. tel: tel:[phone] Arthritis Arthritis Sep- [facility] PA-C [facility] 9 Kenya NewmanSanti PLLC, 5794 PLLC [address] [facility], [place], [place], [place], [place], [id number], [id number], [place]. tel: tel: [phone] Arthritis Arthritis Ankylosing Scotty- [facility] Referring [facility] Health spondylitis of PA-C Provider: Associates Associates multiple sites 9 Kenya Ryan PLLC, 5794 PLLC in spineOther [address] [place], [facility] [address] [place] [address], (current) drug [place], [facility] [place], therapyFibromy [place], [place], [place], [place], [place], [id number], [id number], [place], [place]. [id number]. tel: tel: tel: [phone] Arthritis Arthritis Ankylosing Apr- [facility] Referring [facility] Health spondylitis of PA-C Provider: Associates Associates multiple sites 9 Kenya Ryan PLLC, 5794 PLLC in [address] [place], [facility] spineFibromyal [facility] 57 [place], giaOther long [place], [facility] [place], term (current) [place], [place], [place], drug therapy [place], [place], [id number], [id number], [place], [place]. [id number]. tel:+ tel:+ tel:[phone] Arthritis Arthritis Ankylosing Apr- [facility] Referring [facility] spondylitis of PA-C Provider: Associates Associates multiple sites 9 Kenya Arreola PLLC, 5794 PLLC in 5794 [facility], [facility], Clinic [address] [place], term (current) [place], [facility], drug therapy [place], Road, [id number], [id number], [place] [address]. tel:+ tel:+ tel:[phone] Arthritis Arthritis Ankylosing Jan- [facility] Referring [facility] spondylitis of PA-C Provider: Associates Associates multiple sites 8 Kenya NewmanSanti [place]ba PLLC, 5794 PLLC in 5794 [facility], [facility], Clinic [address] [place], term (current) [place], [facility], drug therapy [place], Road, [id number], [id number], [place] [address]. tel:+ tel:+ tel:[phone] Arthritis Arthritis Ankylosing Oct- [facility] Referring [facility] Health spondylitis of PA-C Provider: Associates Associates multiple sites 8 Jeffrey. Arreola PLLC, 5794 PLLC in 5794 [facility], [facility], Clinic [address] [place], term drug [place], [facility], therapy [place], Road, [id number], [id number], [place] [address]. tel:[phone] tel:+[phone] tel:[phone] [facility] PA-C [facility] 8 Kenya NewmanSanti PLLC, 5794 PLLC 5794 [facility], [place], [place], [place], [place], [id number], [id number], [place]. tel:+ tel:[phone] Arthritis Arthritis Ankylosing Apr-2 [place] Referring Health Health spondylitis of 3201 PA-C Provider: Associates Associates multiple sites 8 Kenya NewmanSanti Arreola PLLC, 5794 PLLC in spineOther [address] [place] [address] intermission coordinator drug [facility], [facility], Clinic [address] [place], algia [place], [facility], [place], Road, [id number], [id number], [place] [address]. 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 [address]. tel:+ [phone], tel:+4 tel:[phone] Arthritis Arthritis Ankylosing Aug-2 Zambrano PA C Referring Health Health spondylitis of Brandy Lui Provider: Associates Associates multiple sites 7 5794 Aliasgher PLLC, 5794 PLLC in spineOther [facility] snf drug [address]kw[address], [facility], therapyBody [place], Clinic [address] [place], mass index [place], [facility], (BMI) [id number], Road, [id number], 29.0-29.9, [place]. [place], [place] adult tel:+ [phone]. tel:+ [phone] tel:[phone] Arthritis Arthritis Ankylosing Drew-2 [place] Referring Health Health spondylitis of PA-C Provider: Associates Associates multiple sites 7 Kenya Arreola PLLC, 5794 PLLC in 5794 [facility], [facility] spineFichristus [facility] hospital[facility], [facility], Clinic [address] [place], term drug [place], [facility], therapy [place], Road, [id number], [id number], [place]. [address]. tel:+ tel:+ tel:[phone] Arthritis Arthritis Ankylosing Apr-1 [place] Referring Health Health spondylitis of PA-C Provider: Associates Associates multiple sites 7 Kenya Arreola PLLC, 5794 PLLC in spineOther 5794 [facility], [facility] intermission coordinator drug [facility], [facility], Clinic [address] [place], algia [place], [facility], [place], Road, [id number], [id number], [place] [address]. tel:+ tel:+ tel:[phone] Arthritis Arthritis Ankylosing Dec-2 [place] Referring Health Health spondylitis of PA-C Provider: Associates Associates multiple sites 6 Kenya Arreola PLLC, 5794 PLLC in spineOther 5794 [facility], [facility] snf drug [facility], [facility], Clinic [address] [place], algiaCervicalg [place], [place], [place], Road, [id number], [id number], [place]. [address]. tel:+[phone] tel:+[phone] tel:[phone] Arthritis Arthritis Ankylosing Sep-0 [place] Referring Health Health spondylitis of 1-201 PA-C Provider: Associates Associates multiple sites 6 Kenya NewmanSanti [place] PLLC, 5794 PLLC in spineOther 5794 [facility], [facility] intermission coordinator drug [facility], therapy [place], Clinic [address] [place], [place], [place], [place], Road, [id number], [id number], [place] [address]. tel:+[phone] tel:+[phone] tel:[phone] Arthritis Arthritis Ankylosing Drew-1 [place] Referring Health Health spondylitis of 5- PA-C Provider: Associates Associates multiple sites 6 Kenya NewmanSanti [place] PLLC, 5794 PLLC in spineOther 5794 [facility], [facility] snf drug [facility], [facility], Clinic [address] [place], algia [place], [facility], [place], Road, [id number], [id number], [place] [address]. tel:+[phone] tel:+[phone] tel:[phone] Arthritis Arthritis Ankylosing Mar-3 [place] MENDEZ Referring Health Health spondylitis of 0-201 Connor. Provider: Associates Associates multiple sites 6 5794 Aliasgher PLLC, 5794 PLLC in [facility], [place], giaOther long [place], Clinic [address] [place], term drug [place], [facility], therapy [id number], Road, [id number], . [place], [place], tel:[phone]. tel:[phone] tel:[phone] Arthritis Arthritis Ankylosing Dec-1 [place] Referring Health Health spondylitis of 6-201 PA-C Provider: Associates Associates multiple sites 5 Kenya NewmanSanti Bakarier PLLC, 5794 PLLC in 5794 [facility] spinePickens County Medical Centeral [facility] [place], giaInsect bite [place], Clinic [address] [place], (nonvenomous) [place], [place], of [facility] [place], Road, [id number], [place], [facility] [id number], [place] [address]. tel:+ tel:+ tel:[phone] Arthritis Arthritis Apr-0 [facility] 2- PA-C Provider: Associates Associates 5 Kenya Arreola PLLC, 5794 PLLC 5794 [facility], [facility] 17[address] [place], [place], [place], [place], Road, [id number], [id number], [place] [address]. tel:+ tel:+ tel:[phone] Arthritis Arthritis [place] INTERNET SALES DIRECTOR-C [facility] Gale. 5794 Provider: Associates Santi 5 Henok Arreola PLLC, 5794 PLLC [place], [place], [place], [facility] [address] [place], [id number], [facility]. Road, [id number], tel:+[phone] [place], [place], [address]. tel:+ tel:[phone] Arthritis Arthritis Oct- [facility] 7 PA-C Provider: Associates Associates 4 Kenya Arreola PLLC, 5794 PLLC 5794 [facility], [facility] [address] [place], [place], [place], [place], Road, [id number], [id number], [place] [address]. tel:+4 tel:+315 tel:[phone] Arthritis Arthritis [facility] Referring [facility] Health 3-201 PA-C Provider: Associates Associates 4 Jeffrey. Arreola PLLC, 5794 PLLC 5794 [facility], [facility], [place], Clinic [address] [place], [place], [facility], [place], Road, [id number], [id number], [place] [address]. tel:+[phone] tel:+4 tel:[phone] Arthritis Arthritis Apr- [place] INTERNET SALES DIRECTOR-C Referring Health Health Gale. 5794 Provider: Associates Associates 4 [facility] PLLC, 5794 PLLC [place], [facility], [facility], [place], [place], Clinic [address] [place], [id number], [facility]. Road, [id number], tel:+[phone] [place], [place], [address]. tel:+4 tel:[phone] Arthritis Arthritis Jan- [facility] INTERNET SALES DIRECTOR-C Associates Associates 3 [facility]. 310 PLLC, 5794 PLLC S [facility], [place], [place], [place], [place], [id number], [id number], . [place] tel:+ tel:[phone] Arthritis Arthritis Oct-2 [place] INTERNET SALES DIRECTOR-C Referring [facility] Health Gale. 5794 Provider: Associates Associates 3 [facility] 5794 PLLC [place], [facility], [facility], [place], [place], Clinic [address] [place], [id number], [facility]. Road, [id number], tel:+[phone] [facility] [address]. tel:+[phone] tel:[phone] Arthritis Arthritis Aug-2 [place] INTERNET SALES DIRECTOR-C Referring [facility] Health [place]ale. 5794 Provider: Associates Associates 3 [facility], 5794 PLLC [place], [facility], [facility], [facility] [address] [place], [id number], [facility]. Road, [id number], tel:+[phone] [facility] [address]. tel:+ tel:[phone] Arthritis Arthritis Apr-0 [place] INTERNET SALES DIRECTOR-C Referring [facility] Health 2- Gale. 5794 Provider: Associates Santi 3 [facility] [place] [facility], 5794 [facility] [address] [place], [id number], [facility]. Road, [id number], tel:+[phone] [facility] [address]. tel:+ tel:[phone] Arthritis Arthritis Nov-0 [facility] Referring [facility] 8 PA-C Provider: Associates Santi 2 Jeffrey. Arreola [facility], [address] [place] [address] [place] [address], [facility] [address] [place], [place], [place], [place], Road, [id number], [id number], [place]. [address]. tel:+ tel:+ tel:[phone] Arthritis Arthritis Oct- [facility] Referring [facility] Health PA-C Provider: Associates Santi 2 Jeffrey. Arreola [facility], [address] [place] [address], [facility] [address] [place], [place], [place], [place], Road, [id number], [id number], [place] [address]. tel:+ tel:+ tel:[phone] Arthritis Arthritis Fe- [place] INTERNET SALES DIRECTOR-C Referring [facility] Health 6-201 [place]. 5794 Provider: Santi Hancock 1 [facility] [place] [facility], 5794 PLLC [place], [place], [place], [place], [facility] [address] [place], [id number], [facility]. Road, [id number], tel:-[phone] [facility] [address]. tel:[phone] tel:[phone] Family History Family Member Diagnosis Age At Onset Paternal grandmother Mother Cousins Mother Rheumatoid arthritis Nephew Ankylosing Spondylitis Father Daughter Grandfathers Immunizations Vaccine Date Status Comments Influenza, split virus, administered Note: Invalid documented admin injectable, 3 years and older date was . ; Fluvirin Source: Other Provider Influenza, split virus, administered Source: Other Registry injectable, 3 years and older Fluvirin [id number] Influenza virus vaccine, administered Source: Other Provider [...] (PPV23) Payers Payer name Insurance type Covered green party ID Authorization(s) Medicare [id number] Medicaid MC [id number] Social History Type Description Quantity Date Captured [...]
--- OUTSIDE RECORDS SUMMARY | 2019-05-17 16:09 | XMS REPORT | Continuity of Care Document ---
:1965 Author Organization [facility] Address [address], [place] [id number] Phone Care Team Providers Name Role Phone [...] route 3 times Reference #: every day [id number] COSENTYX 150MG/ML INJECT 1 SYRINGE - Active INJ SUBCUTANEOUSLY EVERY 4 WEEKS hydrocodone 5 take 1/2 tablet by - Active Reference #: mg-acetaminophen 325 oral route every [id number] MDD mg tablet other day ONLY IF [...] 3 times Active Reference #: every day [id number] cyclobenzaprine 5 mg take 1 - 2 Tablet 5 MG - No Longer tablet by oral route Active every bedtime as needed as needed Problems Condition Effective Dates Clinical Status Comments (start - stop) Body mass index (BMI) - 29.0-29.9, adult Body mass index (BMI) - 29.0-29.9, adult Ankylosing spondylitis of multiple sites in spine Other bed bug exterminator (current) drug therapy Fibromyalgia Ankylosing spondylitis of multiple sites in spine Fibromyalgia Other senior care (current) drug therapy Ankylosing spondylitis of multiple sites in spine Fibromyalgia Other bed bug exterminator (current) drug therapy Ankylosing spondylitis of multiple sites in spine Fibromyalgia Other senior care (current) drug therapy Ankylosing spondylitis of multiple sites in spine Fibromyalgia Other senior care drug therapy Ankylosing spondylitis of multiple sites in spine Other bed bug exterminator drug therapy Fibromyalgia Ankylosing spondylitis of multiple sites in spine Fibromyalgia Other bed bug exterminator drug therapy Ankylosing spondylitis of multiple sites in spine Other bed bug exterminator drug therapy Ankylosing spondylitis of multiple sites in spine Fibromyalgia Other senior care drug therapy Ankylosing spondylitis of multiple sites in spine Other senior care drug therapy Fibromyalgia Ankylosing spondylitis of multiple sites in spine Other senior care drug therapy Fibromyalgia Cervicalgia Ankylosing spondylitis of multiple sites in spine Other bed bug exterminator drug therapy Ankylosing spondylitis of multiple sites in spine Other senior care drug therapy Fibromyalgia Ankylosing spondylitis of multiple sites in spine Fibromyalgia Other bed bug exterminator drug therapy Ankylosing spondylitis of multiple sites in spine Fibromyalgia Insect bite (nonvenomous) of abdominal wall, sequela Fibromyositis - Active Mapped from [facility] Chronic Conditions table on 07/29/2014 by the ICD9 to SN[employer] Bulk Mapping Utility. The mapped diagnosis code was Fibromyalgia / Myalgia, 729.1, added by Kenya Mirza, with responsible provider Kenya López PA-C. Onset date 01/11/2014; last addressed on 01/11/2014. Ankylosing spondylitis - Active Mapped from [facility] Chronic Conditions table on 06/14/2014 by the [...] For Visit Copied on Encounter [facility] 9 [facility] Cornelius [facility], 5794 PLLC [address] [facility], [place], [place], [id number], [id number], [place]. tel:[phone] tel:[phone] [facility] JUAN CARLOS [facility] 9 [facility] Cornelius PLL[facility], 5794 PLLC [address] [facility], [place], [place], [place], [id number], [id number], [place]. tel:[phone] tel:[phone] [facility] LAQUITAYuki [facility] 9 Kenya Cornelius [facility]C, 5794 PLLC [address] [facility], [place], [place], [place], [id number], [id number], [place]. tel:[phone] tel:[phone] [facility] LAQUITA [facility] 9 Kenya B. PLLC, 5794 PLLC [address] [facility], [place], [place], [place], [id number], [id number], [place]. tel:[phone] tel:[phone] [facility] JUAN CARLOS [facility] 9 Kenya B. PLLC, 5794 PLLC [address] [facility], [place], [place], [place], [id number], [id number], [place]. tel: tel: [phone] Arthritis [facility]thritis Ankylosing [facility] Referring [facility] Health spondylitis of PA-C Provider: Associates Associates multiple sites 9 Kenya Ryan PLLC, 5794 PLLC in spineOther [address] [place], [facility] senior care [facility] [address] [place], (current) drug [place], [facility] [place], therapyFibromy [place], [place], [place], [place], [place], [id number], [id number], [place], [place]. [id number]. tel: tel: tel: [phone] Arthritis Arthritis Ankylosing [facility] Referring Health Health spondylitis of PA-C Provider: Associates Associates multiple sites 9 Kenya Ryan PLLC, 5794 PLLC in [address] [place] MENDE[place], [facility] [place] [address] [place] [address], [facility], [facility] [place], term (current) [place], [place], [place], drug [place], [place], [id number], [id number], [place], [place]. [id number]. tel: tel: [phone] Arthritis Arthritis Ankylosing [facility] Referring Health Health spondylitis of PA-C Provider: [facility] Associates multiple sites 9 Kenya Arreola PLLC, 5794 PLLC in 5794 [facility] spineFibromyal [facility], [facility], Clinic [address] [place], term (current) [place], [place], drug [place], Road, [id number], [id number], [place] [address]. tel: tel:[phone] tel:[phone] Arthritis Arthritis Ankylosing Oct-0 [facility] Referring [facility] Health spondylitis of 8 PA-C Provider: [facility] Associates multiple sites 8 Kenya Arreola PLLC, 5794 PLLC in 5794 [facility], [facility], Clinic [address] [place], term (current) [place], [facility] [place], drug [place], Road, [id number], [id number], [place]. [address]. tel:+[phone] tel:[phone] tel:[phone] Arthritis Arthritis Ankylosing Oct-[address] [facility] Referring [facility] Health spondylitis of 2 PA-C Provider: Associates Associates multiple sites 8 Rhondamarryevangelina PLLC, 5794 PLLC in 5794 [facility], [facility], Clinic [address] [place], term drug [place], [place], therapy [place], Road, [id number], [id number], [place] [address]. tel:[phone] tel:[phone] tel:[phone] Arthritis Arthritis May-0 [facility] Health 7- PA-C Associates [facility] 8 Kenya Ashli PLLC, 5794 PLLC [address] [facility], [place], [place], [place], [id number], [id number], [place]. tel:[phone] tel:[phone] Arthritis Arthritis Ankylosing Apr-2 [facility] Referring [facility] Health spondylitis of 3 PA-C Provider: Associates Associates multiple sites 8 Kenya NewmanSanti Elba PLLC, 5794 PLLC in spineOther 5794 [facility] bed bug exterminator drug [facility], [facility], Clinic [address] [place], algia [place], [place], [place], Road, [id number], [id number], [place] [address]. 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, Clinic [address] [place], term drug [place], [facility], therapyBody [place], Road, [id number], mass index [id number], [place], [place], [place] ([place]) [place] [address]. tel:+ 29.0-29.9, tel:+[phone] tel:[phone] adult [phone] Arthritis Arthritis Ankylosing Aug- Zambrano PA C Referring Health Health spondylitis of Brandy Lui Provider: Associates Associates multiple sites 7 5794 Alimarrygher PLLC, 5794 PLLC in spineOther [facility] bed bug exterminator [address], [facility], [facility] hospital[facility] [place], Clinic [address] [place], mass index [place], [facility], (BMI) [id number], Road, [id number], 29.0-29.9, [place]. [place], [place], adult tel:+ [phone]. tel:[phone] tel:[phone] Arthritis Arthritis Ankylosing Drew-2 [place] Referring Health Health spondylitis of PA-C Provider: Associates Associates multiple sites 7 Kenya Cornelius Alihanker PLLC, 5[address] PLLC in [address] [place] [address] [facility], [facility], Clinic [address] [place], term drug [place], [facility], therapy [place], Road, [id number], [id number], [place] [address]. tel:+ tel:[phone] tel:[phone] Arthritis Arthritis Ankylosing Apr-1 [place] Referring Health Health spondylitis of PA-C Provider: Associates Associates multiple sites 7 Kenya Arreola PLLC, 5794 PLLC in spineOther 5794 [facility] senior care drug [facility], [facility], Clinic [address] [place], algia [place], [facility], [place], Road, [id number], [id number], [place] [address]. tel:+ tel:+ tel:[phone] Arthritis Arthritis Ankylosing Dec-2 [place] Referring Health Health spondylitis of PA-C Provider: Associates Associates multiple sites 6 Kenya Arreola PLLC, 5794 PLLC in spineOther [address] [facility] senior care drug [facility], [facility], Clinic [address] [place], algiaCervicalg [place], [place], [facility], Road, [id number], [id number], [place] [address]. tel:+ tel:+ tel:[phone] Arthritis Arthritis Ankylosing Sep-0 [place] Referring Health Health spondylitis of PA-C Provider: Associates Associates multiple sites 6 Kenya NewmanSanti Elba PLLC, 5794 PLLC in spineOther 5794 [facility], [facility] senior care drug [facility], therapy [place], Clinic [address] [place], [place], [place], [place], Road, [id number], [id number], [place] [address]. tel:+[phone] tel:+[phone] tel:[phone] Arthritis Arthritis Ankylosing Drew-1 [place] Referring Health Health spondylitis of PA-C Provider: Associates Associates multiple sites 6 Kenya Arreola PLLC, 5794 PLLC in spineOther 5794 [facility] senior care drug [facility], [facility], Clinic [address] [place], algia [place], [place], [place], Road, [id number], [id number], [place] [address]. tel:+[phone] tel:+[phone] tel:[phone] Arthritis Arthritis Ankylosing Mar-[address] [place] [address] [facility] Health spondylitis of 0-201 Connor. Provider: Associates Santi multiple sites 6 5794 [place] PLLC, 5794 PLLC in [facility], [facility], giaOther long [place], Clinic [address] [place], term drug [place], [facility], therapy [id number], Road, [id number], . [place], [place], tel:[phone]. tel:[phone] tel:[phone] [facility]thritis [facility]osing Dec-1 [facility] Referring Health Health spondylitis of 6-201 PA-C Provider: Santi Hancock multiple sites 5 Kenya NewmanSanti Arreola PLLC, 5794 PLLC in [address] [place] [address] spineSelect Specialty Hospitalal [facility], giaInsect bite [place], Clinic [address] [place], (nonvenomous) [place], [place], of abdominal [place], Road, [id number], wall, sequela [id number], [place] [address]. tel:+[phone] tel:+[phone] tel:[phone] Arthritis Arthritis Apr-0 [place] Referring Health Health 2-201 PA-C Provider: Santi Hancock 5 Kenya NewmanSanti Arreola PLLC, 5794 PLLC 5794 [facility], [place], Clinic [address] [place], [place], [place], [place], Road, [id number], [id number], [facility] [place]. [address]. 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 Health [place]. 5794 Provider: Santi Hancock 5 [facility] PLL, [address], [id number] [place] [address]. Road, [id number], tel:+[phone] [facility] 7980[address]. tel:+ tel:[phone] Arthritis Arthritis Jan- [facility] Referring [facility] Health PA-C Provider: Santi Hancock 4 [facility] PLLC, 5794 PLL 5794 [facility], [address], [place], [place], [place], Road, [id number], [id number], [place] [address]. tel:+ tel:+ tel:[phone] Arthritis Arthritis [facility] Referring [facility] Health PA-C Provider: Santi Hancock 4 [facility]Santi [facility] PLL, 5794 PLLC 5794 [facility], [facility] 17[address] [place], [place], [place], [place], Road, [id number], [id number], [facility] [place]. [address]. 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 Health Gale. 5794 Provider: Santi Hancock 4 [facility] PLLC, 5794 [place], Clinic [address] [place] [address], [id number], [facility]. Road, [id number], tel:[phone] [facility] 987862 [address]. tel:+[phone] tel:[phone] Arthritis Arthritis Oct-2 [facility] 9 FLIPPING MACHINE OPERATOR-C Associates [facility] 3 [facility]. 310 PLL, 5794 [facility] S Ignacia [facility], [place], [place], [place], [place], [place], [id number], [id number], . 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 5794 Provider: Santi Hancock 3 [facility], [address] [place] [address], [place], [place], Clinic [address] [place], [id number], [facility]. Road, [id number], tel:[phone] [facility] 941232 [address]. 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 5794 Provider: Santi Hancock 3 [facility], [address] [place] [address], Clinic [address] [place], [id number], [facility]. Road, [id number], tel:+[phone] [facility] 887569 [address]. 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 5794 Provider: Santi Hancock 3 [facility], 5794 [facility], [place], [place], [place], Clinic [address] [place], [id number], [facility]. Road, [id number], tel:[phone] [facility] [address]. tel:+ tel:[phone] Arthritis Arthritis [facility] PA-C Provider: Santi Hancock 2 Alpesh. [place] PLLC, 5794 PLLC 5794 [facility], [address], Road, [id number], [id number], [facility] [place]. [address]. tel:+ tel:+ tel:[phone] Arthritis Arthritis [facility] PA-C Provider: Santi Hancock 2 Alpesh. [place], 5794 PLLC 5794 [facility], [address], Road, [id number], [id number], [place] [address]. tel:+ tel:+[phone] tel:[phone] Arthritis Arthritis [place] FLIPPING MACHINE OPERATOR-C [facility] Gale. 5794 Provider: Santi Hancock 1 [facility] [place] [facility], [address], [address] [place] [address]. Road, [address] [place] [address], tel:+[phone] [facility] 774632 [address]. tel:+[phone] tel:[phone] Family History Family Member Diagnosis Age At Onset Paternal grandmother Mother Cousins Mother Rheumatoid arthritis Nephew Ankylosing Spondylitis Father Daughter Grandfathers Immunizations Vaccine Date Status Comments Influenza, split virus, administered Note: Invalid documented admin injectable, 3 years and older date was . ; Fluvirin Source: Other Provider Influenza, split virus, administered Source: Other Registry injectable, 3 years and older Fluvirin [id number] Influenza virus vaccine, administered Source: Other Provider [...] type Covered alliance party ID Authorization(s) Medicare [id number] Medicaid [id number] Social History Type Description Quantity Date Captured [...]
--- OUTSIDE RECORDS SUMMARY | 2019-05-17 16:09 | XMS REPORT | Summary of Care ---
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 with Dr. Maldonado to reattach tendons on Achilles Heel Encounter Details Date Type Department Care Team Description 03/25/2019 Office Visit Felicia Mckeon Preop examination (Primary Dx); Medicine L, RPA-C Achilles tendon injury, left, subsequent encounter; [address] Mild intermittent asthma without complication; [place] [address] [place], [place] Ankylosing spondylitis, unspecified site of spine ([facility]) [phone] [id number] Allergies Active Allergy Reactions Severity Noted Date Comments Clarithromycin Other 02/04/2019 Dizziness Morphine GI Reaction 12/11/2012 vomitting Penicillins Rash 10/05/2004 Today pt states questionable reaction to PCN Reglan EP TECH Reaction 05/15/2018 documented as of this encounter (statuses as of 03/25/2019) Medications Medication Sig Dispensed Refills Start End Date Status Date fexofenadine Take 1 Tab by 90 Tab 1 Active (VITA) 180 MG mouth DAILY. 1 Oral Tab duloxetine Take 1 Cap by 30 Cap 0 Active (CYMBALTA) 60 MG mouth DAILY. 3 Oral CAPSULE ENTERIC COATED PARTICLES Multiple Take by mouth. 0 Active Vitamins-Minerals (MENS ONE DAILY PO) montelukast Take 1 Tab by 90 Tab 1 Active (SINGULAIR) 10 MG mouth DAILY. 7 Oral TabIndications: Mild intermittent asthma without complication Probiotic Product Take 1 Each by 30 Each 0 Active (VSL#3 DS) Oral mouth DAILY. 7 Pack fluticasone [place] Baths 2 Sprays 16 g 2 Active (FLONASE) 50 in nose TWICE 9 MCG/ACT Nasal DAILY. SuspensionIndicatio ns: Seasonal allergic rhinitis due to pollen, Acute bacterial sinusitis albuterol HFA Take 2 Puffs by 3 Inhaler 3 Active (VENTOLIN) 108 (90 inhalation 9 Base) MCG/ACT EVERY SIX HOURS Inhalation Aero NEEDED SolnIndications: (SOB). Mild intermittent asthma without complication TraZODone HCl 150 Take 75 mg by 30 Tab 0 Active MG Oral TABLET SR mouth EVERY 9 24 HR BEDTIME. Syringe/Needle, 1 Syringe by 3 Each 3 Active Disp, 25G X 1" 5 ML Does not apply 9 Does not apply Misc route EVERY THIRTY DAYS. [place] & Syringes by Does not 6 Syringe 2 Active Does not apply Misc apply route 9 EVERY THIRTY DAYS. SYRINGE SIZE: 3 mL NEEDLE LENGTH/GAUGE: 25g 1 in cyanocobalamin Inject 1 mL 1 mL 14 Active (VITAMIN B12) 1000 within a muscle 9 MCG/ML Injection DIRECTED for Solution 1 dose. 1 ML weekly x 3 weeks and then 1 ML Once Monthly Golimumab 100 MG/ML Inject 25 mg 8 Syringe 0 Active Subcutaneous beneath the 9 Solution skin EVERY Auto-injector FRIDAY AND FRIDAY. Pt is in need of 8 Pens but our system only offers ML and Syringe Options Ranitidine 150 MG Take 1 Cap by 180 Cap 3 Active Oral Cap mouth TWICE 9 DAILY. OXYcodone-acetamino Take 1 Tab by 90 Tab 0 Active phen (PERCOCET) mouth EVERY 9 5-325 MG Oral Tab FOUR HOURS NEEDED (pain). Max Daily Amount: 6 Tabs. Ranitidine 150 MG Take 1 Cap by 180 Cap 3 03/25/20 Discontinued Oral mouth TWICE 12 24 (Reorder) CapIndications: DAILY. Epigastric pain tramadol (ULTRAM) Take 1 Tab by 30 Tab 0 03/25/20 Discontinued 50 MG Oral Tab mouth EVERY 9 (Therapy EIGHT HOURS Completed) NEEDED (shoulder pain). Max Daily Amount: 150 mg. cyanocobalamin Inject 1 mL 10 mL 3 03/25/20 Discontinued (VITAMIN B12) 1000 within a muscle 12 24 (Duplicate MCG/ML Injection DIRECTED for Order) Solution 1 dose. Pt will give 1x this week and QOD x1 month, and then 1x monthly Syringe/Needle, 1 Syringe by 10 Each 3 03/25/20 Discontinued Disp, 25G X 1" 5 ML Does not apply 12 24 (Duplicate Does not apply Misc route Order) DIRECTED. Pt will give 1x this week and QOD X1 month, and then 1x monthly oxyCODONE-Acetamino Take 1 Tab by 0 03/25/20 Discontinued phen (PERCOCET) mouth EVERY SIX 19 2.5-325 MG Oral Tab HOURS NEEDED (Pain). documented as of this encounter (statuses as of 03/25/2019) Active Problems Problem Noted Date Mild intermittent asthma without complication 08/15/2015 GI tract obstruction 05/05/2015 Overview: possible, per CT of abdomen/pelvis done at [facility] on 05-04-2015 Insomnia 11/18/2014 Achalasia of esophagus 10/21/2014 Overview: h/o hiatal hernia surgery High triglycerides 11/03/2013 Mixed hyperlipidemia 09/09/2013 GERD (gastroesophageal reflux disease) 01/04/2013 Overview: S/p Christophe fundoplication [facility] [address] History of diverticulitis of colon 01/04/2013 Overview: 2009 colonic abscess and peritonitis [facility] S/p partial segmental colon resection and ileotomy [address] 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 03/15/2015 Overview: potentially, with tick bite, headache, muscle aches, and negative Lyme titer Ehrlichiosis 02/16/2015 03/15/2015 Overview: potentially, with tick bite, headache, muscle aches, and negative Lyme titer Periumbilical abdominal pain 10/18/2014 05/15/2018 Loss of weight 10/18/2014 05/15/2018 Hiatal hernia 10/18/2014 05/15/2018 Nausea 10/18/2014 05/15/2018 Acute sinusitis 09/02/2014 02/14/2015 Allergic rhinitis 09/02/2014 10/14/2014 Diarrhea 09/02/2014 05/15/2018 Epididymitis 01/28/2014 04/19/2014 Low TSH level 11/11/2013 05/15/2018 Acute sinusitis 11/11/2013 01/28/2014 Overweight 11/11/2013 05/15/2018 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 South and is maintained on biweekly Embr. Adult BMI 19-24 kg/sq m 11/07/2010 06/03/2011 Nonspecific (abnormal) findings on radiological and other 01/25/20082011 examination of abdominal area, including retroperitoneum Other ventral hernia without mention of obstruction or gangrene 08/05/2007 documented as of this encounter (statuses as of 03/25/2019) Immunizations Name Administration Dates Next Due Influenza (IM) Preservative Free 01/18/2019, 05/08/2017, 12/29/2008, 02/09/2008 Influenza (IM) W/Pres 03/07/2018, 03/07/2015 Influenza Vaccine Whole 02/25/2007 PNEUMOCOCCAL POLYSACCHARIDE VACCINE 05/08/2017 documented as of this encounter Social History Tobacco Use Types Packs/Day Years Used Date Former Smoker Cigarettes 1 11 Quit: 09/05/2000 Smokeless Tobacco: Never Used Tobacco Cessation: Counseling Given: No Alcohol Use Drinks/Week oz/Week Comments Yes 0 Standard drinks or equivalent 0.0 occ Sex Assigned at Date Recorded Not on file Job Start Date Occupation Industry Not on file Not on file Not on file Travel History Travel Start Travel End No recent travel history available. documented as of this encounter Last Filed Vital Signs Vital Sign Reading Time Taken Comments Blood Pressure 122/91 03/25/2019 10:47 AM EST Pulse 95 03/25/2019 10:47 AM EST Temperature - - Respiratory Rate - - Oxygen Saturation 98% 03/25/2019 10:47 AM EST Inhaled Oxygen Concentration - - Weight 86.2 kg (190 lb) 03/25/2019 10:47 AM EST Height - - Body Mass Index 24.39 02/04/2019 2:17 PM EDT documented in this encounter Patient Instructions Patient InstructionsFelicia Peters RPA-C - 03/25/2019 10:40 AM EST1. Nothing to eat or drink after midnight the night before surgery 2. No NSAIDS (ibuprofen, Aspirin) 3. Hold all medications the am of surgery documented in this encounter Progress Notes Felicia Peters RPA-C - 03/25/2019 10:40 AM EST PATIENT: Bethel Julien : 1965 DATE OF SERVICE: 03/25/2019 Subjective SUBJECTIVE: Bethel Julien is a 53-y.o. male who presents to the office today for a preoperative consultation at the request of Dr. Maldonado, who will perform an an achilles tendon repair on 04/06/19. Patient complains of cardiac symptoms: none. Patient denies cardiac symptoms: chest pain, chest pressure/discomfort, dyspnea , palpitations, syncope, orthopnea, paroxysmal nocturnal dyspnea, lower extremity edema. Past history of pulmonary embolism/deep vein thrombosis: no. There is a history of bleeding complications: no Past history of anesthetic problem: no. Exercise capacity: Can you walk 2 blocks on level ground, or carry 2 bags of groceries up 2 flights of stairs? Yes Count the number of risk factors in the revised [place] cardiac risk index. ( RCRI): High risk procedure: eg vascular surgery, any open intraperitoneal or intrathoracic History of ischemic heart disease (history of LA or a positive exercise test, current complaint of chest pain considered to be secondary to myocardial ischemia, use of nitrate therapy, or ECG with pathological Q waves; do not count prior coronary revascularization procedure unless one of the other criteria for ischemic heart disease is present) Hx of CHF, either systolic or diastolic History of cerebrovascular disease (TIA or Stroke) Diabetes mellitus requiring treatment with insulin Preoperative serum creatinine >2.0 mg/dl The risk of cardiac , nonfatal myocardial infarction, and nonfatal cardiac arrest according to the number of above risk predictors is estimated to be: No risk factors - 0.4 percent (95% CI: 0.1 - 0.8) Screening for sleep apnea: Stop-Bang Snoring: Do you snore loudly (louder than talking or heard through closed doors )? Tired: Do you often feel tired, fatigued, or sleepy during the day? Observed: Has anyone observed you stop breathing during your sleep? Pressure: Do you have or are you being treated for high blood pressure? BMI: >35 kg/m2? Age: >50? Neck circumference: >40 cm? Gender: Male? "Low risk" for CLAUDIO: <3 questions "yes" Screening for Alzheimer's 1. During the past 12 months, have you experienced confusion or memory loss that is happening more often or is getting worse? No 2. During the past 7 days, did you need help with others to perform everyday activities such as eating, getting dressed, grooming, bathing, walking, or using the toilet? No 3. During the past 7 days, did you need help from others to take care of things such as laundry and housekeeping, banking, shopping, using the telephone, food preparation, transportation, or taking your own medications? No Current active problems are: Patient Active Problem List Diagnosis Date Noted Mild intermittent asthma without complication 08/15/2015 GI tract obstruction (HCC) 05/05/2015 possible, per CT of abdomen/pelvis done at [facility] on 05-04-2015 Insomnia 11/18/2014 Achalasia of esophagus 10/21/2014 h/o hiatal hernia surgery High triglycerides 11/03/2013 Mixed hyperlipidemia 09/09/2013 GERD (gastroesophageal reflux disease) 01/04/2013 S/p Christophe fundoplication [facility] [address] History of diverticulitis of colon 01/04/20132009 colonic abscess and peritonitis [facility] S/p partial segmental colon resection and ileotomy [address] [facility] Dr Pak Appendix removed 2009 Ankylosing spondylitis (HCC) 01/04/2013 Dr South rheumatology [place], [place] Gout, unspecified 04/24/2007 Fibromyalgia 04/24/2007 Past Medical History: Diagnosis Date Diverticulitis Epididymitis 01/28/2014 Fibromyalgia 04/24/2007 Gout, unspecified 04/24/2007 Insomnia history of Personal history of tobacco use, presenting hazards to health 04/24/2007 Reflux Spondylitis (HCC) history of Family History Problem Relation Age of Onset Cancer Maternal Grandmother stomach Cancer Maternal Grandfather pancreatic Colon Cancer Maternal Grandfather Cancer Paternal Grandfather stomach Current Outpatient Medications Medication Sig albuterol HFA (VENTOLIN) 108 (90 Base) MCG/ACT Inhalation Aero Soln Take 2 Puffs by inhalation EVERY SIX HOURS NEEDED (SOB). cyanocobalamin (VITAMIN B12) 1000 MCG/ML Injection Solution Inject 1 mL within a muscle DIRECTED for 1 dose. 1 ML weekly x 3 weeks and then 1 ML Once Monthly duloxetine (CYMBALTA) 60 MG Oral CAPSULE ENTERIC COATED PARTICLES Take 1 Cap by mouth DAILY. fexofenadine (VITA) 180 MG Oral Tab Take 1 Tab by mouth DAILY. fluticasone (FLONASE) 50 MCG/ACT Nasal Suspension [place] Baths 2 Sprays in nose TWICE DAILY. Golimumab 100 MG/ML Subcutaneous Solution Auto-injector Inject 25 mg beneath the skin EVERY FRIDAY AND FRIDAY. Pt is in need of 8 Pens but our system only offers ML and Syringe Options montelukast (SINGULAIR) 10 MG Oral Tab Take 1 Tab by mouth DAILY. Multiple Vitamins-Minerals (MENS ONE DAILY PO) Take by mouth. [place] & Syringes Does not apply Misc by Does not apply route EVERY THIRTY DAYS. SYRINGESIZE: 3 mL NEEDLE LENGTH/GAUGE: 25g 1 in Probiotic Product (VSL#3 DS) Oral Pack Take 1 Each by mouth DAILY. Ranitidine 150 MG Oral Cap Take 1 Cap by mouth TWICE DAILY. Syringe/Needle, Disp, 25G X 1" 5 ML Does not apply Misc 1 Syringe by Does not apply route EVERY THIRTY DAYS. TraZODone HCl 150 MG Oral TABLET SR 24 HR Take 75 mg by mouth EVERY BEDTIME. No current facility-administered medications for this visit. Allergies Allergen Reactions Biaxin [Clarithromycin] Other Dizziness Morphine GI Reaction vomitting Pcn [Penicillins] Rash Today pt states questionable reaction to PCN Reglan EP TECH Reaction Social History Socioeconomic History Marital status: Spouse name: Not on file Number of children: Not on file Years of education: Not on file Highest education level: Not on file Occupational History Not on file Social Needs Financial resource strain: Not on file Food insecurity Worry: Not on file Inability: Not on file Transportation needs Medical: Not on file Non-medical: Not on file Tobacco Use Smoking status: Former Smoker Packs/day: 1.00 Years: 11.00 Pack years: 11.00 Types: Cigarettes Last attempt to quit: 09/05/2000 Years since quittin.5 Smokeless tobacco: Never Used Substance and Sexual Activity Alcohol use: Yes Alcohol/week: 0.0 standard drinks Comment: occ Drug use: No Frequency: 7.0 times per week Comment: marijuana 2 bowls at night to help with pain/sleeping.Currently not using Sexual activity: Yes Partners: Female Lifestyle Physical activity Days per week: Not on file Minutes per session: Not on file Stress: Not on file Relationships Social connections Talks on phone: Not on file Gets together: Not on file Attends uatsdin service: Not on file Active member of club or organization: Not on file Attends meetings of clubs or organizations: Not on file Relationship status: Not on file Intimate partner violence Fear of current or ex partner: Not on file Emotionally abused: Not on file Physically abused: Not on file Forced sexual activity: Not on file Other Topics Concern Back Care Not Asked Bike Helmet Not Asked Blood Transfusions No Caffeine Concern Not Asked Exercise Yes Comment: lifts weights/no aerobic exercise. 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 2 children from previous marriage (younger daughter lives with pt, 1 daughter in nursing school in [place]). No pets. REVIEW OF SYSTEMS: All remaining review of systems was negative. The patient has dentures: No The last dental visit was: Unknown The patient has hearing aids: No Objective OBJECTIVE: BP (!) 122/91 (BP Location: Left arm, Patient Position: Sitting) | Pulse 95 | Wt 190 lb (86.2 kg)| SpO2 98% | BMI 24.39 kg/m GENERAL: alert, cooperative, no distress. SKIN: no rash or abnormalities. EYES: conjunctivae/corneas clear. Pupils equal, round, reactive to light. Equal ocular movements intact. Fundi benign.. MOUTH: moist mucous membranes, no lesions. Mallampati score: 3 LYMPH NODES: cervical, supraclavicular, and axillary nodes normal.. LUNGS: clear to auscultation bilaterally. HEART: regular rate and rhythm, S1, S2 normal, no murmur, click, rub or gallop. ABDOMEN: soft, non-tender. Bowel sounds normal. No masses, no organomegaly. FLANK TENDERNESS: absent. BREAST: declined. RECTAL: defer. EXTREMITIES: Boots bilateral lower extremity. NEUROLOGIC: alert, oriented x3. Gait normal. Reflexes and motor strength normal and symmetric. Cranial nerves 2-12 and sensation grossly intact.. PSYCHIATRIC: non focal. ASSESSMENT: No contraindications to planned surgery 1. Preop examination 2. Achilles tendon injury, left, subsequent encounter 3. Mild intermittent asthma without complication 4. Ankylosing spondylitis, unspecified site of spine (HCC) Clinical predictors: The RCRI score is: 0 Respiratory risk: The patient has pre-existing risks of none The risk of airway problems is low based on the mallampati score and the Stop-bang score. Anticoagulation: The patient is not on anti-platelet agents. Recommendations regarding stopping these medications before surgery: No NSAIDs for 7 days Plan PLAN: 1. Patient requires endocarditis prophylaxis: no. 2. Recommend perioperative beta-manav: no. 3. Patient requires perioperative deep vein thrombosis prophylaxis: no. 4. General preoperative instructions for patient. Proceed with surgery as planned. No food or liquids the morning of surgery. Call surgeon if develop respiratory illness, fever, or other illness. Letter sent to requesting surgeon listed above. Written preoperative instructions given.. Author: GREG Hazel 03/25/2019 11:01 documented in this encounter Plan of Treatment Health Maintenance Due Date Last Done Comments DTaP/Tdap/Td Vaccines ( - 1975 Tdap) DEPRESSION SCREENING 05/15/2019 05/15/2018 MEDICARE ANNUAL WELLNESS 07/22/2019 Postponed from VISIT 1965 (Patient refused) ZOSTER IMMUNIZATION SERIES 07/22/2019 Postponed from (1 of 2) 2014 (Vaccine not available) Colonoscopy 11/27/2020 11/28/2015, 01/14/2013, 01/14/2013 LIPID DISORDER SCREENING 04/10/2023 04/10/2018, 01/28/2014, 11/15/2013, Additional history exists PNEUMOCOCCAL 0-64 YRS Completed 05/08/2017 INFLUENZA VACCINE Completed 01/18/2019, 03/07/2018, 05/08/2017, Additional history exists HEPATITIS A IMMUNIZATION Aged Out No longer eligible SERIES based on patient's age to complete this topic HPV IMMUNIZATION SERIES Aged Out No longer eligible based on patient's age to complete this topic MENINGOCOCCAL VACCINE IMM Aged Out No longer eligible based on patient's age to complete this topic documented as of this encounter Results Not on filedocumented in this encounter Visit Diagnoses Diagnosis Preop examination Preoperative examination, unspecified Achilles tendon injury, left, subsequent encounter Mild intermittent asthma without complication Unspecified asthma Ankylosing spondylitis, unspecified site of spine (HCC) documented in this encounter Insurance Payer Benefit Plan / Subscriber ID Effective Dates Phone Address Type Group MEDICARE MEDICARE PART A xxxxxxxxxxx 2014-Present Medicare & B MEDICAID [facility] xxxxxxxx 2016-Present Medicaid [place]ICA[place] Guarantor Name Account Type Relation to Date of Phone Billing Patient Address Bethel Julien Personal/Family 1965 [id number] [place] [address]) [place] [id number] documented as of this encounter
[2019-05-17] MEDS ORDERED: Albuterol HFA INHALER* 8 gm MDI INH PRN (16:14)
[2019-05-17] MEDS ORDERED: Cetirizine* 10 MG TAB PO PRN (16:14)
[2019-05-17] MEDS: Acetaminophen TAB* 325 MG PO SCH ×2 (16:20→23:02)
[2019-05-17] MEDS ORDERED: HYDROmorphone TAB* 2 MG ONE (16:23)
[2019-05-17 16:47] LABS: INR 1.06 (0.82-1.09)
--- NOTE | 2019-05-17 17:11 | PN ---
Progress Note - Progress Note Date of Service: 05/17/19 Note: Please see dictation for full detail Patient was a direct admit from ortho office today with wound dehiscence. Plan is for OR tomorrow for I&D and closure.
[2019-05-17] MEDS: oxyCODONE TAB* 5 MG TAB PO PRN ×2 (18:32→23:13)
[2019-05-17 20:28] LABS: ABS Basophils 0.1 10^3/ul (0-0.2); ABS Eosinophils 0.2 10^3/ul (0-0.6); ABS Lymphocytes 1.6 10^3/ul (1.0-4.8); ABS Monocytes 0.6 10^3/ul (0-0.8); ABS Neutrophils 3.2 10^3/ul (1.5-7.7); Eosinophil % 2.8 %; Hematocrit 38 % (42-52); Hemoglobin 13.6 g/dL (14.0-18.0); Lymphocyte % 29.1 %; Mean Corpuscular HGB Conc 36 g/dL (31-36); Mean Corpuscular Hemoglobin 33 pg (27-31); Mean Corpuscular Volume 93 fL (80-94); Mean Platelet Volume 7.6 fL (7.4-10.4); Nucleated Red Blood Cells % 0.1; Platelet Count 285 10^3/uL (150-450); Red Blood Count 4.11 10^6 /uL (4.18-5.48); Red Cell Distribution Width 13 % (10-15); White Blood Count 5.7 10^3/uL (3.5-10.8)
[2019-05-17] MEDS: ceFAZolin 1 GM ADVAN(*) 1 GM in NS 0.9% 50 ML* 50 ML IVPB SCH (20:48)
[2019-05-17] MEDS: Magnesium Hydroxide LIQ* 30 ML UDC PO SCH (20:50)
[2019-05-17] MEDS: traZODone TAB* 100 MG PO SCH (20:50)
[2019-05-17] MEDS: Docusate CAP* 100 MG PO SCH (20:50)
[2019-05-17] MEDS: HYDROmorphone TAB* 2 MG PO PRN (20:53)
[2019-05-17] MEDS: clonazePAM TAB(*) 0.5 MG PO SCH (20:53)
[2019-05-17 21:11] LABS: BUN/Creatinine Ratio 10.3 (8-20); C Reactive Protein 11.45 mg/L (<8.01); EGFR African American 79.4 (>60); EGFR Non-African American 65.6 (>60); Potassium 3.7 mmol/L (3.5-5.0)
--- NOTE | 2019-05-17 21:13 | CONS ---
CONSULTATION REPORT: DATE OF Admission H&P: 05/17/19 ATTENDING ORTHOPEDIC PROVIDER: Dr. Memo Sanchez. PRIMARY CARE PHYSICIAN: LAQUITA Ibarra CHIEF COMPLAINT: Left Achilles tendon repair, wound dehiscence, possible infection. HISTORY OF PRESENT ILLNESS: The patient is a 53-year-old male who was seen in the orthopedic office by Dr. Sanchez today. He is status post open left Achilles tendon repair on 04/07/19. He was at a fdc facility after this operation. He had been in a walking boot at 50% weightbearing and upon presentation to the office today, it was noted that the wound had dehisced with possible infection. The patient states he has been feeling relatively well, the wound has been healing well. Wound has not been checked. He was unaware that it had opened, but he has had some feeling of chills over the past several days. He is feeling well at this time. Wound is not painful. PAST MEDICAL HISTORY: Significant for ankylosing spondylitis, mild asthma, seasonal allergies, atopic dermatitis, fibromyalgia. PAST SURGICAL HISTORY: Partial colectomy with ileostomy with followup reversal of surgery, colectomy was done secondary to an abscess; history of inguinal hernia repair; hiatal hernia repair; both left and right Achilles tendon repair. He has tolerated the anesthesia well in the past. ALLERGIES: Allergies to MORPHINE, induces vomiting; PENICILLIN, hives, though he has tolerated Ancef and Keflex in the past. FAMILY HISTORY: No history of DVT, PE, or problems with anesthesia. 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 He lives alone. He does not drink, smoke, or use drugs. REVIEW OF SYSTEMS: General: The patient feels relatively well. He did have some feeling of chills over the past several days. No known fever. HEENT: No headache. No changes in vision. Cardiac: No chest pain. No shortness of breath. No history of PA. Respiratory: No shortness of breath. Positive history of mild asthma. GI: No abdominal pain, nausea, vomiting, diarrhea. : No dysuria. The patient does have a Sotomayor catheter in place due to urinary retention. He will follow up with Urology outpatient. Musculoskeletal: Positive for right Achilles tendon repair. He remains nonweightbearing on this side and left Achilles tendon repair. He was 50% weightbearing. Now with dehiscence, he should be nonweightbearing. Neuro: Denies any decreased sensation in bilateral lower extremities. PHYSICAL EXAM: Temperature 98.4, pulse rate 87, respiratory rate 16, oxygen saturation 95% on room air, blood pressure 124/76. General: Nontoxic appearing , in no acute distress. HEENT: Normocephalic, atraumatic. Extraocular movements intact. Cardiac: S1, S2. Respiratory: Clear to auscultation bilaterally. Abdomen: Nondistended, nontender. Bowel sounds normoactive. Musculoskeletal: Bilateral upper extremities. Skin envelope intact. Nontender to palpation. Moving all joints well without any difficulty. Lower Extremities : Right lower extremity: The patient has a splint on the right lower extremity. Able to flex and extend MTPs. Sensation intact distally. Nontender to knee, thigh, hip. Left lower extremity: The patient has an Kavon wrap over the ankle. He was able to flex and extend at the ankle, MTPs, knee, and hip without any pain. Sensation intact to light touch distally. Capillary refill less than 2 seconds distally. ASSESSMENT: The patient has a left wound dehiscence status post Achilles tendon repair. PLAN: He will be nonweightbearing on bilateral lower extremities. He has been placed on Ancef 1 g q.8 hours. He will be n.p.o. at midnight. He will be on subcu heparin until midnight, which should be held at midnight as well for anticipated OR tomorrow when he will have an I and D and closure of this wound. Infectious Disease has been consulted. It is unclear whether there is any wound infection at this time. Dr. Sanchez is in agreement with this plan and has examined the patient today in the ortho office. LAQUITA POP [id number]/[facility] #: [id number] TRISTIAN
--- NOTE | 2019-05-17 21:46 | PN ---
Progress Note - Progress Note Date of Service: 05/17/19 SOAP: Subjective: 53 yo M s/p L Achilles tendon repair 04/06/19 and R Achilles tendon repair . 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 Seen in clinic on 05/03/18 and L ankle incision looked pristine. Skin to skin perfect apposition and excellent healing so far. Stitches were removed. That was 27 days postop. After 2nd procedure, I made the patient NWB RLE, and WBAT LLE while in a walking boot with wedges in place. Patient was in a swing bed at [place]. Patient had a DSD on his left ankle wound. Patient had apparently been doing stairs and other aggressive maneuvers in PT. Patient even described hopping along on his left foot in order to avoid RLE weight bearing. DSD had not been changed in 7 days until yesterday or today. Someone at [facility] noting some purple appearing skin yesterday and patient thinks he may have had drainage at some point yesterday or today. Oral antibiotic was started overnight. Patient had developed left shoulder pain for which he was principally coming to clinic today to see me. The ankles were an afterthought when he made the appointment. The patient admits that the left shoulder pain has made walker upper extremity weight bearing difficult. I truly don't know how this patient could have been safely moving around or going up and down stairs without undo stress on the left ankle. Objective: Left heel - Some fullness present 1/[address] from proximal to distal along incision - Expressed fluid, mostly blood - The skin edges seemed to have gapped with some healing fibrous tissue in between - After expression of fluid, there was a more discrete gap between skin edges - Obtained culture - Wiped Providone swabs and then placed non-adherent and DSD Labs - I obtained cultures from the wound at [facility] in clinic prior to sanitizing the wound with Providone. It could certainly be contaminated with skin lotus. Assessment: 1. Focal dehiscence L ankle/heel surgical incision from 04/06/19 (5 weeks, 6 days) 2. Unclear the chronicity of dehiscence as DSD was not changed in the past 7 days 3. Possible infection or colonization of L heel wound breakdown 4. s/p recent R Achilles tendon repair (R ankle recasted today in clinic) 5. L shoulder pain, bursitis, rotator cuff tendonitis Plan: - Admit to Ortho on IV antibiotics - Dressing change daily with Providone swab followed by DSD - Inflammatory labs - ID consult - To the OR at earliest convenience for I&D, assessment of tendon repair, and primary closure (likely) versus VAC placement (unlikely) - Expressed to the patient the absolute seriousness of wound breakdown in the setting of Achilles tendon surgery, in terms of the possible need for multiple surgical procedures and possible salvage procedures. This is a devastating reinjury that will require the utmost carefulness in treating. - NPO after midnight - Limited weight bearing LLE. This patient would be better off bearing some weight in the RLE than hopping along putting significant amounts of weight on the left lower leg as he evidently had been doing. Bed rest except for bathroom breaks for now.
[2019-05-18] MEDS: oxyCODONE TAB* 5 MG TAB PO PRN ×2 (03:26→22:15)
[2019-05-18] MEDS: Acetaminophen TAB* 325 MG PO SCH ×3 (05:00→22:52)
[2019-05-18] MEDS: ceFAZolin 1 GM ADVAN(*) 1 GM in NS 0.9% 50 ML* 50 ML IVPB SCH ×2 (05:22→12:45)
[2019-05-18] MEDS: HYDROmorphone TAB* 2 MG PO PRN (05:25)
[2019-05-18 06:24] LABS: ABS Eosinophils 0.1 10^3/ul (0-0.6); ABS Lymphocytes 1.4 10^3/ul (1.0-4.8); ABS Monocytes 0.5 10^3/ul (0-0.8); ABS Neutrophils 3.5 10^3/ul (1.5-7.7); Eosinophil % 2.2 %; Hematocrit 39 % (42-52); Hemoglobin 13.9 g/dL (14.0-18.0); Lymphocyte % 24.9 %; Mean Corpuscular HGB Conc 36 g/dL (31-36); Mean Corpuscular Hemoglobin 33 pg (27-31); Mean Corpuscular Volume 93 fL (80-94); Mean Platelet Volume 7.1 fL (7.4-10.4); Platelet Count 293 10^3/uL (150-450); Red Blood Count 4.21 10^6 /uL (4.18-5.48); Red Cell Distribution Width 12 % (10-15); White Blood Count 5.5 10^3/uL (3.5-10.8)
[2019-05-18 06:42] LABS: BUN/Creatinine Ratio 10.7 (8-20); C Reactive Protein 11.85 mg/L (<8.01); Calcium 8.6 mg/dL (8.6-10.3); EGFR African American 82.7 (>60); EGFR Non-African American 68.3 (>60)
[2019-05-18] MEDS: Morphine INJ* 2 MG/ML 1 ML SYRINGE (TWO MG - NEW SYRINGE VERSION) IV PRN ×4 (07:36→22:55)
[2019-05-18] MEDS: DULoxetine DR CAP* 30 MG CAP.DR PO SCH (09:09)
[2019-05-18] MEDS: Docusate CAP* 100 MG PO SCH ×2 (09:09→22:54)
[2019-05-18] MEDS: amLODIPine TAB* 5 MG PO SCH (09:09)
[2019-05-18] MEDS: DULoxetine DR CAP* 20 MG CAP.DR PO SCH (09:09)
[2019-05-18] MEDS: clonazePAM TAB(*) 0.5 MG PO SCH ×3 (09:09→22:54)
[2019-05-18] MEDS: Vitamin THERAPEUTIC TAB PO SCH (09:10)
[2019-05-18] MEDS: Magnesium Hydroxide LIQ* 30 ML UDC PO SCH ×2 (09:10→22:52)
[2019-05-18] MEDS: Multivitamins/Minerals TAB PO SCH (09:10)
--- NOTE | 2019-05-18 14:59 | CONS ---
CONSULTATION REPORT: DATE OF CONSULT: 05/18/19 DATE OF ADMISSION: 05/17/19 PRIMARY CARE PROVIDER: None. PROVIDER REQUESTING CONSULTATION: LAQUITA Melgar CONSULTING SERVICE: Infectious Disease. PROVIDER: Destiny Ohara NP ATTENDING PHYSICIAN: Dr. Todd Magallon * (dictated by Destiny Ohara NP) REASON FOR CONSULTATION: Wound dehiscence status post left Achilles tendon repair. IMPRESSION: 1. Left Achilles tendon incision dehiscence. Status post a left Achilles tendon repair on 04/07/19. The patient states he has been doing well. He developed increased pain in the left ankle and was noted to have wound dehiscence, was sent to the hospital. He reports intermittent chills. Denies fever. He is afebrile, has no leukocytosis or neutropenia. CRP is slightly elevated 11.85. CRP 20 on admission yesterday. He has been receiving Ancef. Wound culture at [facility] yesterday with 2+ epithelial cells, 3+ neutrophils, 2+ nucleated cells, and no organisms; no growth on day 1. 2. Ankylosing spondylosis. RECOMMENDATION/PLAN: Recommend continuing cefazolin. The patient will be going to the operating room. Orthopedics should obtain cultures. We will follow along. Further recommendations is going to be based off of the operative findings and culture results and the patient's clinical course. HISTORY OF PRESENT ILLNESS: Mr. Julien is a 53-year-old male with past medical history significant for ankylosing spondylosis, mild asthma, seasonal allergies , atopic dermatitis and fibromyalgia, who in the last 6 weeks has undergone bilateral Achilles tendon repair with the left Achilles tendon being repaired on 04/07/19. He has been in a detention facility after his operation and presented to the orthopedic office yesterday with an open wound after his incision had dehisced. He states that overall he had been doing well until he developed an increased pain in his left ankle prompting him to have the ankle evaluated. He reports intermittent chills and intermittent nausea. Denies fever, shortness of breath, cough, joint pain other than the left ankle discomfort, abdominal discomfort, vomiting, diarrhea, constipation, urinary symptoms, or recent travel. After being seen in the orthopedic clinic by Dr. Sanchez, he was sent to the hospital as a direct admission for concerns for infection and a dehisced wound. He was placed on cefazolin. He has been afebrile. No leukocytosis, slightly elevated CRP and elevated ESR on admission yesterday. Orthopedics is planning to take the patient to the operating room for washout later today. PAST MEDICAL HISTORY: 1. Ankylosing spondylosis. 2. Mild asthma. 3. Seasonal allergies. 4. Atopic dermatitis. 5. Fibromyalgia. PAST SURGICAL HISTORY: 1. Status post partial colectomy with ileostomy placement. 2. Status post ileostomy reversal. 3. Status post inguinal hernia repair. 4. Status post bilateral Achilles tendon repairs last with the left on . HOME MEDICATIONS: 1. Trazodone 150 mg by mouth at bedtime. 2. Percocet 5-325 one to two tablets by mouth every 4 hours as needed for pain. 3. Amlodipine 5 mg by mouth daily. 4. Multivitamin 1 tablet by mouth daily. 5. Ibuprofen 400 mg by mouth twice daily as needed. 6. Enoxaparin 40 mg subcutaneous daily. 7. Albuterol HFA inhaler 2 puffs inhalation twice daily as needed for shortness of breath. 8. Xyzal 10 mg by mouth daily as needed for allergy symptoms. 9. Dilaudid 2 mg by mouth every 4 hours as needed for pain. 10. Duloxetine 50 mg by mouth daily. 11. Clonazepam 0.5 mg by mouth 3 times daily. Hospital Medications: 1. Acetaminophen 975 mg by mouth every 8 hours. 2. Albuterol HFA inhaler 2 puffs inhalation twice daily as needed for shortness of breath or wheeze. 3. Amlodipine 5 mg by mouth daily. 4. Dulcolax suppository 10 mg per rectum daily as needed for constipation. 5. Cefazolin 1 g IV every 8 hours. 6. Zyrtec 10 mg by mouth once daily as needed for allergy symptoms. 7. Klonopin 0.5 mg by mouth 3 times daily. 8. Flexeril 10 mg by mouth every 6 hours as needed for muscle spasms. 9. Benadryl 25 mg IV p.o. every 6 hours as needed for itching. 10. Colace 100 mg by mouth twice daily. 11. Duloxetine 50 mg by mouth daily. 12. Dilaudid 2 mg by mouth every 4 hours as needed for pain. 13. Lactulose 30 mL by mouth twice daily as needed for constipation. 14. Milk of magnesia 30 mL by mouth twice daily until bowel movement followed by 30 mL by mouth every 6 hours as needed for constipation. 15. Morphine sulfate 2 mg IV every 4 hours as needed for pain. 16. Multivitamin 1 tablet by mouth daily. 17. Zofran 4 mg IV p.o. every 6 hours as needed for nausea. 18. Oxycodone 5 to 10 mg by mouth every 4 hours as needed for pain. 19. Tramadol 50 mg by mouth every 6 hours as needed for pain. 20. Trazodone 150 mg by mouth at bedtime. ALLERGIES: 1. PENICILLIN causes hives. 2. REGLAN cause rash. 3. SEASONAL allergies. FAMILY HISTORY: Denies family history of recurrent or resistant infection. Father with a history of heart disease. Paternal grandmother with a history of diabetes. Father with a history of esophageal cancer. SOCIAL HISTORY: Denies alcohol, tobacco, or recreational drug use. REVIEW OF SYSTEMS: I performed an 10 point review of systems other pertinent positive and negatives as mentioned in the history of present illness. Remaining review of systems are negative. PHYSICAL EXAMINATION: Vital Signs: Temperature 98.1, heart rate 101, respiratory rate 16, O2 sat 94% on room air, blood pressure 119/77. General Appearance: In no acute distress, sitting up in bed. HEENT: Head normocephalic , atraumatic. ENT: Extraocular movements are intact. No subconjunctival hemorrhage. Moist mucous membranes. Neck: Supple. No lymphadenopathy. No nuchal rigidity. Neurologic: Alert and oriented. Cranial nerves II through XII are grossly intact. Cardiovascular: Regular rate and rhythm. S1, S2 present. No murmurs, rubs, or gallops heard. Respiratory: No accessory muscle use. Lungs are clear to auscultation bilaterally. Abdomen: Bowel sounds present. Soft, nontender, and nondistended. Extremities: No lower extremity edema. Musculoskeletal: No clubbing or cyanosis noted. Moves all extremities. Psychological: Calm and cooperative. Skin: No rashes or abnormalities. He has unexposed skin. He has a hard cast at the right lower extremity and left lower extremity with an Kavon wrap dressing with no extending erythema noted. DIAGNOSTIC STUDIES/LAB DATA: Sodium 138, potassium 4.0, chloride 105, CO2 27, BUN 12, creatinine 1.12, glucose 100. White blood cell count 5.5, hemoglobin 13.9, hematocrit 39, and platelet count 293. CRP 11.85. ESR 20 on 05/17/19. Please see impression recommendations outlined above. Recommendations had been discussed with Eva Odom. Thank you for asking me to see Mr. Julien in consultation. The case has been reviewed with my attending, Dr. Todd Magallon who agrees with the plan of care. Reviewed by DESTINY OHARA, TYREL-C 05/19/19 1638 [id number]/[facility] #: [id number] MTDD
[2019-05-18] MEDS ORDERED: ceFAZolin 2 GM in NS PREMIX(*) 2 GM/100 ML BAG IVPB ONE (18:40)
[2019-05-18] MEDS ORDERED: Bupivacaine 0.5% W/EPI SDV* 10 ML VIAL INJ ONE (18:55)
--- NOTE | 2019-05-18 19:38 | PN ---
Progress Note - Progress Note Date of Service: 05/18/19 SOAP: Subjective: No pain. Has been on Ancef. Objective: Left ankle - Minimal serosanguinous drainage on dressing. No clearly bacterial smell. - Skin opening, small, perhaps 5-10mm, about 1[address] the incision from proximal to distal. Some visible tissue, subQ or paratenon, or Achilles, visible in that opening. - Proximal to the skin opening, there is a palpable small area where the skin edges have gapped, but fibrous tissue connects them - No significant erythema, tenderness, or drainage - NVID Gram stain and culture of wound from 05/17/19 in clinic is negative GS and NGTD Selected Entries 05/17/19 05/17/19 05/17/19 15:20 19:19 23:14 Temperature 98 F 98.4 F 97.4 F Pulse Rate Respiratory Rate Blood Pressure (mmHg) O2 Sat by Pulse Oximetry 05/18/19 05/18/19 05/18/19 03:24 07:27 11:26 Temperature 97.6 F 98.1 F 99.5 F Pulse Rate Respiratory Rate Blood Pressure (mmHg) O2 Sat by Pulse Oximetry 05/18/19 16:04 Temperature 99.1 F Pulse Rate 95 Respiratory 18 Rate Blood Pressure 132/84 (mmHg) O2 Sat by Pulse 97 Oximetry Laboratory Tests 05/17/19 05/17/19 05/18/19 16:31 20:48 06:14 WBC 5.7 5.5 Neut % (Auto) 56.8 63.4 C-Reactive Protein 11.45 H 05/18/19 06:14 WBC Neut % (Auto) C-Reactive Protein 11.85 H Assessment: s/p B Achilles tendon repairs Recent small wound dehiscence left ankle incision (somewhere between 5-6 weeks postop) Plan: - To OR for I&D. Likely skin sponge Prevena as well. - Discussed with ID service. - I have discussed standard risks and potential complications as well the general utmost seriousness of wound breakdown in the setting of an Achilles tendon repair in reference to infection, need for revision surgery and takedown of the Achilles tendon repair. - No clear sign of infection, but I will favor IV antibiotics postop given the opportunity for colonization of the repair that is in such close proximity to the skin in this location.
[2019-05-18] MEDS ORDERED: Midazolam* 1 MG/ML 2 ML VIAL (2 MG) ONE (20:11)
[2019-05-18] MEDS ORDERED: fentaNYL* 50 MCG/ML 2 ML VIAL (100 MCG VIAL) ONE ×2 (20:11→21:02)
[2019-05-18] MEDS ORDERED: Propofol* 10 MG/ML 20 ML BTL ONE (20:30)
[2019-05-18] MEDS ORDERED: Ondansetron INJ* 2 MG/ML VIAL ONE (20:30)
[2019-05-18] MEDS ORDERED: Dexamethasone IV* 4 MG/ML 1 ML (4 MG) ONE (20:30)
[2019-05-18] MEDS ORDERED: Lidocaine 2% PF * 5 ML VIAL ONE (20:30)
[2019-05-18] MEDS ORDERED: HYDROmorphone INJ1* 1 MG/ML SYRINGE ONE (21:47)
[2019-05-18] MEDS ORDERED: Naloxone* 0.4 MG/ML 1 ML VIAL IV PRN (21:49)
[2019-05-18] MEDS: HYDROmorphone INJ1* 1 MG/ML SYRINGE IV PRN ×2 (21:50→22:00)
[2019-05-18] MEDS ORDERED: oxyCODONE TAB* 5 MG TAB ONE (22:14)
[2019-05-18] MEDS: traZODone TAB* 100 MG PO SCH (22:53)
[2019-05-19] MEDS ORDERED: ceFAZolin 1 GM* X ONE DOSE (AddVan) IVPB ×2
[2019-05-19] MEDS: HYDROmorphone TAB* 2 MG PO PRN ×5 (00:16→22:24)
[2019-05-19] MEDS: Cyclobenzaprine TAB* 10 MG PO PRN (00:16)
[2019-05-19] MEDS: Morphine INJ* 2 MG/ML 1 ML SYRINGE (TWO MG - NEW SYRINGE VERSION) IV PRN ×5 (02:55→20:10)
--- NOTE | 2019-05-19 04:24 | OP ---
DATE OF OPERATION: 05/18/19 - ROOM #[id number] DATE OF : 63 SURGEON: Memo Sanchez MD WOMEN'S STUDIES PROFESSOR: LAQUITA Mcgill. A physician assistant baseball coach was required for the length of the procedure for assistance with patient positioning, retraction, and closure. ANESTHESIOLOGIST: Dr. Bhavik Garrison. ANESTHESIA: General anesthesia using LMA. PRE-OP DIAGNOSES: 1. Left ankle/heel wound dehiscence, small. 2. Possible left ankle/heel infection. 3. Possible left Achilles tendon rerupture 3. Status post 04/06/19 left open Achilles tendon repair care with a plantaris tendon tenodesis. POST-OP DIAGNOSES: 1. Left ankle/heel wound dehiscence, small. 2. Possible left ankle/heel infection 3. Left Achilles tendon rerupture. 4. Status post 04/06/19 left open Achilles tendon repair with plantaris tendon tenodesis. OPERATIVE PROCEDURE: 1. Incision, irrigation, debridement, and drainage left ankle/heel wound, deep. 2. Placement of negative pressure device, sponge, on top of skin, Prevena. PATIENT POSITIONING: Lateral decubitus, using a beanbag. ANTIBIOTICS: Ancef 2 g IV. IV FLUIDS: See Anesthesia note. [id number] TIME: 49 minutes. TOURNIQUET TIME: 50 minutes, 300 mmHg, left thigh tourniquet. SPECIMEN: Aerobic and anaerobic cultures sent from deep wound. IMPLANTS: None. ESTIMATED BLOOD LOSS: Minimal. COMPLICATIONS: None. 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 I discussed nonoperative and operative treatment and the patient opted for surgery. The patient on 04/06/19 underwent an uncomplicated Achilles tendon repair using plantaris tendon weave. I casted the patient initially postoperatively and kept him nonweightbearing for 4 weeks. The patient's initial recovery from the surgery was remarkable for his fall and rupture of contralateral right Achilles tendon. I started weightbearing in a walking boot with heel wedges at week 4 on the left ankle and several days later repaired the right Achilles tendon on 05/05/19. Because the patient after the 2nd operation was nonweightbearing right lower extremity and limited, partial weightbearing as tolerated left lower extremity, he was transferred to a swing bed at [facility]. Clearly unable to take care of himself at home. When I last inspected the left ankle at 4-5 weeks post -op prior to his transfer to [facility], the incision scar was immaculate with nice healing [id number] apposition and the ankle had a nice resting plantarflexion posture with a palpable taut repaired Achilles tendon without any significant tenderness to palpation. I had the patient do physical therapy at [facility]. There was some walking with a walker. The patient even went up steps. The patient started developing left shoulder pain and was using his upper extremities less and it sounds as if the patient was essentially hopping along on his left foot clearly instilling a large amount of isometric plantar flexion force. The patient denied any pain during physical therapy so this activity was continued. The patient does describe at least 1 fall, but he is unable to give exact details on this. The patient scheduled an appointment with me on 05/17/19 to talk about his left shoulder, although while he was there I looked at both ankles. In clinic, the right ankle looked perfect at the incision site, but the left ankle I was surprised to see some area of focal swelling and a tiny networking specialist the skin. This was especially surprising since the last time I had seen this wound at about 4 or 5 weeks postoperative, the patient had excellent tone of Achilles , perfect looking [id number] apposition. This was concerning, any type of wound breakdown, skin breakdown close to a tendon repair concern me greatly. I was concerned about a possible colonization or infection. I obtained culture samples of wet fluid within that skin opening and I sent that for Gram stain and culture. Gram stain was negative and cultures have shown no growth to date at 1 day so far. I immediately transferred the patient to [facility] for IV antibiotics and for planned washout. I made the patient n.p.o. after midnight and I took the patient to surgery today, at the earliest possible convenience. I immediately told the patient the seriousness of this problem. A wound breakdown and infection are top of the list in terms of concerns after this particular surgery. I thought briefly about possible Achilles rerupture, especially as when I put pressure on the heel in clinic yesterday blood was admitted from the wound. That deep bleeding made me concerned about a possible Achilles tendon rupture. DESCRIPTION OF PROCEDURE: In preoperative holding, the patient signed a written consent. Operative extremity was marked in preoperative holding. The patient was taken back to the operating room and placed supine on the operating room table. Sedated and intubated. The patient was converted to a lateral decubitus position on the beanbag. Axillary roll placed. We maintained the ankle in a plantar flexed position throughout the prepping and draping to protect the Achilles tendon, were to still be intact. Tourniquet was placed about the left thigh. Prep and drape. Surgical time-out was performed. Esmarch was applied and tourniquet was elevated. Prior to the prep and drape, I had palpated the Achilles tendon and it was not rigid as it had been in clinic 1 to 2 weeks before, so this made me concerned more so that there might be a possible rerupture. I made a skin incision that included the small area of skin breakdown, which was only 5 to 10 mm long. There is 1 additional area of 5 to 10 mm long, where it felt as if there is some scar tissue that can active the former skin edges. I made a the incision that was perhaps 10 cm in length that incorporated both of those areas of distress. I dissected down to Achilles tendon. There was some very murky fluid. There was no blood. There was 1 area of some yellow looking fluid. It was not clearly infection. It might have been just some necrosis of tissue. We obtained aerobic and anaerobic cultures in this area of questionable fluid. The Achilles' tendon was clearly reruptured. It was not contiguous. The proximal and distal ends of the incision looked like much healing had happened but in this area it appeared to have clearly re-torn. I next cleaned it out using about 4 to 5 L of normal saline irrigation using cystoscopy tubing. I removed all visible suture material with a knife sharp dissection. After we had irrigated the wound and dried the tissue, the Achilles in this area looked more normal, although not particularly patel. We placed 1 stitch in the Achilles at this point using a quickly absorbable PDS 2.0 suture. This was just a Omar-Khalif type single stitch to get good apposition of the Achilles tendon fibers on either side of the rupture to help best facilitate what would clearly be a nonoperative repair of this Achilles tendon rerupture. I next closed the subcutaneous tissue with buried simple stitches using PDS 2.0 suture. Because there was enough laxity of the skin and because I wanted to maximize the available area of skin to affect good healing, I closed most of the incision site with horizontal mattress stitches using nylon 3.0 suture. The proximal most and distal most end of the incision were closed with running stitches using nylon 3.0 suture. This was a monofilament nylon suture. The skin closed nicely. I was comfortable with a tight closure because there was no clear evidence of infection. It seemed that this was a scenario where there had been an Achilles rerupture and wound partial dehiscence. Gram stain and culture were negative from the prior day. And I gave maximum importance to the successful healing of this wound posteriorly. We next applied a skin sponge. We used a sponge from the Prevena system. I chose this again to best effect a good healing of skin and subcutaneous tissue. My first concern with this patient is of successful healing of the wound and skin. No obvious infection. Certainly no obvious purulent infection, so I felt comfortable using the sponge. One of its purposes is also to minimize effective bacterial colonization on the skin and certainly that was one of my concerns with that tiny poke hole of open skin was possible colonization of it. The suction of the Prevena system was found to be excellent as we hooked it up to wall suction. No leak was detected when we hooked it up to the Prevena suction unit. I wrapped an Kavon bandage to hold in place the tubing for security. We awakened and extubated the patient. DISPOSITION: The patient will be readmitted to my service postoperatively. We will continue him on IV antibiotics Ancef 1 g IV q.8 hours. I will discuss with the ID service. We will await intraoperative Gram stain and culture results. The patient will be essentially nonweightbearing bilateral lower extremities on bedrest. He will be on DVT prophylaxis Lovenox 40 mg subcu daily. Based on the culture and Gram stain results, we will either leave the Prevena on for 6 days until next Friday or we will remove it and take a peek at the skin sooner. As soon as the skin is confirmed to be healing well, free of infection or breakdown, I will place the patient in a cast in plantar flexion to get any nonoperative healing of this rerupture. I will continue to follow the patient as he is admitted to my service, but we will talk about disposition to a swing bed at [facility] at the appropriate juncture and I will then see the patient back in clinic there. [id number]/[facility] #: [id number] TRISTIAN
[2019-05-19 06:09] LABS: ABS Lymphocytes 0.8 10^3/ul (1.0-4.8); ABS Monocytes 0.3 10^3/ul (0-0.8); ABS Neutrophils 3.5 10^3/ul (1.5-7.7); Eosinophil % 0.1 %; Hematocrit 38 % (42-52); Hemoglobin 13.6 g/dL (14.0-18.0); Lymphocyte % 17.6 %; Mean Corpuscular HGB Conc 35 g/dL (31-36); Mean Corpuscular Hemoglobin 33 pg (27-31); Mean Corpuscular Volume 92 fL (80-94); Mean Platelet Volume 6.7 fL (7.4-10.4); Nucleated Red Blood Cells % 0.1; Platelet Count 333 10^3/uL (150-450); Red Blood Count 4.16 10^6 /uL (4.18-5.48); Red Cell Distribution Width 12 % (10-15); White Blood Count 4.7 10^3/uL (3.5-10.8)
[2019-05-19] MEDS: Acetaminophen TAB* 325 MG PO SCH ×3 (06:29→22:18)
[2019-05-19] MEDS: Magnesium Hydroxide LIQ* 30 ML UDC PO SCH ×2 (08:31→22:17)
[2019-05-19] MEDS: clonazePAM TAB(*) 0.5 MG PO SCH ×3 (08:32→22:18)
[2019-05-19] MEDS: Docusate CAP* 100 MG PO SCH ×2 (08:32→22:55)
[2019-05-19] MEDS: amLODIPine TAB* 5 MG PO SCH (08:32)
[2019-05-19] MEDS: Multivitamins/Minerals TAB PO SCH (08:32)
[2019-05-19] MEDS: DULoxetine DR CAP* 30 MG CAP.DR PO SCH (08:32)
[2019-05-19] MEDS: Vitamin THERAPEUTIC TAB PO SCH (08:32)
[2019-05-19] MEDS: DULoxetine DR CAP* 20 MG CAP.DR PO SCH (08:36)
--- NOTE | 2019-05-19 10:31 | PN ---
Progress Note - Progress Note Date of Service: 05/19/19 SOAP: Subjective: CC: Left achilles wound HPI: Mr. Julien is a 53 yo male with PMH significant for ankylosing spondylosis, asthma, and fibromyalgia; underwent left achilles tendon repair in April and presented to the hospital with a wound dehiscence. Denies fever, chills, nausea , vomiting, or diarrhea. Reports pain in the left LE. Right LE is in a cast, recently had achilles tendon repair on this leg as well, no issues with this leg. Objective: Vital Signs 05/19/19 05/19/19 05/19/19 04:58 07:29 07:35 Temperature 97.8 F Pulse Rate Respiratory 16 14 18 Rate Blood Pressure 129/74 (mmHg) O2 Sat by Pulse Oximetry Physical Exam: General: NAD, sitting up in bed Neurological: Alert and Oriented HEENT: Moist MM Cardiovascular: Heart rate regular Respiratory: Lung sounds clear Abdominal: Bowel sounds present; ABD soft, non tender and non distended MSK: MACDONALD. No edema to the left LE Skin: No rash. Prevena vac to the left ankle in place, no surrounding erythema Laboratory Results - last 24 hr 05/19/19 05/19/19 06:01 06:01 WBC 4.7 RBC 4.16 L Hgb 13.6 L Hct 38 L MCV 92 MCH 33 H MCHC 35 RDW 12 Plt Count 333 MPV 6.7 L Neut % (Auto) 74.8 Lymph % (Auto) 17.6 [place] % (Auto) 6.7 Eos % (Auto) 0.1 Baso % (Auto) 0.8 Absolute Neuts (auto) 3.5 Absolute Lymphs (auto) 0.8 L Absolute Monos (auto) 0.3 Absolute Eos (auto) 0.0 Absolute Basos (auto) 0.0 Absolute Nucleated RBC 0.0 Nucleated RBC % 0.1 C-Reactive Protein 10.23 H Microbiology 05/18/19 20:58 Gram Stain - Final No Source Provided Assessment: 1. Left achilles incision dehiscence. S/P achilles tendon repair on 04/07/19. Was doing well postoperatively, but the incision opened up. Wound culture from [place] with normal lotus. S/P I+D, closure and vac placement, POD #1. Afebrile and no leukocytosis. Gram stain from OR with 4+ neutrophils, and 1 + gram positive cocci, PCR pending. CRP 10.23. Plan: Continue Ancef. Final recommendations based on the culture results. Discussed with LAQUITA Haque.
[2019-05-19] MEDS: Enoxaparin(*) 40 MG/0.4 ML SYR SUBCUT SCH (11:24)
[2019-05-19] MEDS: oxyCODONE TAB* 5 MG TAB PO PRN (11:25)
--- NOTE | 2019-05-19 15:49 | PN ---
Progress Note - Progress Note Date of Service: 05/19/19 SOAP: Subjective: []pt seen at bedside. he has continued incision site pain, tolerable. Denies CP , SOB, dizziness, nausea, fever, chills. Objective: []Gen: NAD, nontoxic appearing LLE: Prevena vac over incision with good suction maintained, no erythema surrounding. Sensation intact to light touch distally, cap refill less than 2 seconds distally, dp2+ Assessment: []s/p BL Achilles tendon repairs Recent small wound dehiscence left ankle incision (somewhere between 5-6 weeks postop) now POD 1 sp Incision, irrigation, debridement, and drainage left ankle /heel wound, deep and Placement of negative pressure device, sponge, on top of skin, Prevena. Plan: - Ancef 1 g IV q 8, await cultures - nonweightbearing bilateral lower extremities - Lovenox 40 mg subcu daily. - Based on the culture and Gram stain results, we will either leave the Prevena on for 6 days until next Friday or we will remove it and take a peek at the skin sooner. As soon as the skin is confirmed to be healing well, free of infection or breakdown, cast in plantar flexion to acheive nonoperative healing of this rerupture. - Will plan for DC back to [facility] - Monitor HR, mildly tachy Vital Signs Temp 97.4 F 05/19/19 15:26 Pulse 101 05/19/19 15:26 Resp 16 05/19/19 15:49 BP 137/83 05/19/19 15:26 Pulse Ox 97 05/19/19 15:26 Intake & Output 05/18/19 05/19/19 05/19/19 18:59 06:59 18:59 Intake Total 55 2009 1080 Output Total 800 1150 1375 Balance -745 860 -295 Intake: IV Fluids 1000 LR 1000 IVPB 55 50 ABX - CEFAZOLIN 55 50 Oral 960 1080 Output: Sotomayor 800 1150 1375 Other: # Bowel Movements 0 Laboratory Last Values WBC 4.7 10^3/uL (3.5-10.8) 05/19/19 06:01 RBC 4.16 10^6 /uL (4.18-5.48) L 05/19/19 06:01 Hgb 13.6 g/dL (14.0-18.0) L 05/19/19 06:01 Hct 38 % (42-52) L 05/19/19 06:01 MCV 92 fL (80-94) 05/19/19 06:01 MCH 33 pg (27-31) H 05/19/19 06:01 MCHC 35 g/dL (31-36) 05/19/19 06:01 RDW 12 % (10-15) 05/19/19 06:01 Plt Count 333 10^3/uL (150-450) 05/19/19 06:01 MPV 6.7 fL (7.4-10.4) L 05/19/19 06:01 Neut % (Auto) 74.8 % 05/19/19 06:01 Lymph % (Auto) 17.6 % 05/19/19 06:01 [place] % (Auto) 6.7 % 05/19/19 06:01 Eos % (Auto) 0.1 % 05/19/19 06:01 Baso % (Auto) 0.8 % 05/19/19 06:01 Absolute Neuts (auto) 3.5 10^3/ul (1.5-7.7) 05/19/19 06:01 Absolute Lymphs (auto) 0.8 10^3/ul (1.0-4.8) L 05/19/19 06:01 Absolute Monos (auto) 0.3 10^3/ul (0-0.8) 05/19/19 06:01 Absolute Eos (auto) 0.0 10^3/ul (0-0.6) 05/19/19 06:01 Absolute Basos (auto) 0.0 10^3/ul (0-0.2) 05/19/19 06:01 Absolute Nucleated RBC 0.0 10^3/ul 05/19/19 06:01 Nucleated RBC % 0.1 05/19/19 06:01 ESR 20 mm/Hr (0-19) H 05/17/19 16:31 INR (Anticoag Therapy) 1.06 (0.82-1.09) 05/17/19 16:31 Sodium 138 mmol/L (135-145) 05/18/19 06:14 Potassium 4.0 mmol/L (3.5-5.0) 05/18/19 06:14 Chloride 105 mmol/L (101-111) 05/18/19 06:14 Carbon Dioxide 27 mmol/L (22-32) 05/18/19 06:14 Anion Gap 6 mmol/L (2-11) 05/18/19 06:14 BUN 12 mg/dL (6-24) 05/18/19 06:14 Creatinine 1.12 mg/dL (0.67-1.17) 05/18/19 06:14 Est GFR ( Amer) 82.7 (>60) 05/18/19 06:14 Est GFR (Non-Af Amer) 68.3 (>60) 05/18/19 06:14 BUN/Creatinine Ratio 10.7 (8-20) 05/18/19 06:14 Glucose 100 mg/dL (70-100) 05/18/19 06:14 Calcium 8.6 mg/dL (8.6-10.3) 05/18/19 06:14 C-Reactive Protein 10.23 mg/L (<8.01) H 05/19/19 06:01 <Eva Odom - Last Filed: 05/19/19 15:53> - Progress Note SOAP: Agree with above. I discussed briefly with the patient. <Memo Sanchez - Last Filed: 05/19/19 18:59>
[2019-05-19] MEDS: traZODone TAB* 100 MG PO SCH (22:18)
[2019-05-20] MEDS: Morphine INJ* 2 MG/ML 1 ML SYRINGE (TWO MG - NEW SYRINGE VERSION) IV PRN ×2 (00:30→04:31)
[2019-05-20] MEDS: Acetaminophen TAB* 325 MG PO SCH ×3 (05:45→21:22)
[2019-05-20 06:27] LABS: ABS Basophils 0.1 10^3/ul (0-0.2); ABS Eosinophils 0.1 10^3/ul (0-0.6); ABS Lymphocytes 1.9 10^3/ul (1.0-4.8); ABS Monocytes 0.5 10^3/ul (0-0.8); ABS Neutrophils 2.7 10^3/ul (1.5-7.7); Eosinophil % 1.3 %; Hematocrit 36 % (42-52); Hemoglobin 12.8 g/dL (14.0-18.0); Lymphocyte % 35.6 %; Mean Corpuscular HGB Conc 35 g/dL (31-36); Mean Corpuscular Hemoglobin 33 pg (27-31); Mean Corpuscular Volume 94 fL (80-94); Mean Platelet Volume 7.1 fL (7.4-10.4); Nucleated Red Blood Cells % 0.3; Platelet Count 275 10^3/uL (150-450); Red Blood Count 3.88 10^6 /uL (4.18-5.48); Red Cell Distribution Width 13 % (10-15); White Blood Count 5.3 10^3/uL (3.5-10.8)
[2019-05-20] MEDS: amLODIPine TAB* 5 MG PO SCH (08:33)
[2019-05-20] MEDS: Vitamin THERAPEUTIC TAB PO SCH (08:33)
[2019-05-20] MEDS: HYDROmorphone TAB* 2 MG PO PRN ×3 (08:34→16:53)
[2019-05-20] MEDS: Multivitamins/Minerals TAB PO SCH (08:34)
[2019-05-20] MEDS: DULoxetine DR CAP* 30 MG CAP.DR PO SCH (08:36)
[2019-05-20] MEDS: DULoxetine DR CAP* 20 MG CAP.DR PO SCH (08:36)
[2019-05-20] MEDS: Docusate CAP* 100 MG PO SCH ×2 (08:36→21:23)
[2019-05-20] MEDS: clonazePAM TAB(*) 0.5 MG PO SCH ×3 (08:36→21:24)
[2019-05-20] MEDS ORDERED: Magnesium Hydroxide LIQ* 30 ML UDC PO PRN (08:54)
[2019-05-20] MEDS: oxyCODONE TAB* 5 MG TAB PO PRN ×4 (09:51→23:53)
[2019-05-20] MEDS: Cyclobenzaprine TAB* 10 MG PO PRN (09:53)
--- NOTE | 2019-05-20 11:47 | PN ---
Progress Note - Progress Note Date of Service: 05/20/19 SOAP: Subjective: []Pt seen at bedside. He feels well without complaints. Denies CP, SOB, dizziness, nausea. Over night he required IV morphine, no longer requiring. Vac was turned off overnight as it was beeping. Objective: []Gen: NAD, nontoxic appearing LLE: Prevena vac over incision is in place but turned off. It was reinforced with tegaderm and turned on with good suction resumed. The vac sponge in entirely dry and there is no drainage in the vac container. No erythema surrounding the wound. Calf supple and nontender Assessment: []s/p BL Achilles tendon repairs Recent small wound dehiscence left ankle incision (somewhere between 5-6 weeks postop) now POD 2 sp Incision, irrigation, debridement, and drainage left ankle /heel wound, deep and Placement of negative pressure device, sponge, on top of skin, Prevena. Plan: - Ancef 1 g IV q 8, await cultures - nonweightbearing bilateral lower extremities - Lovenox 40 mg subcu daily. - Based on the culture and Gram stain results, we will either leave the Prevena on for 6 days until next Friday or we will remove it and take a peek at the skin sooner. As soon as the skin is confirmed to be healing well, free of infection or breakdown, cast in plantar flexion to acheive nonoperative healing of this rerupture. - Discussed vac with Dr Sanchez, will leave in place for now. - Will plan for DC back to [facility] based on rec from ID and Dr Sanchez. - HR normalized. Vital Signs Temp 97.6 F 05/20/19 07:45 Pulse 81 05/20/19 11:26 Resp 12 05/20/19 11:26 BP 140/86 05/20/19 11:26 Pulse Ox 96 05/20/19 11:26 Intake & Output 05/19/19 05/20/19 05/20/19 18:59 06:59 18:59 Intake Total 1080 1999 620 Output Total 1375 600 Balance -295 1400 620 Intake: Oral 1080 1999 620 Output: Sotomayor 1375 600 Other: # Bowel Movements 1 Estimated Stool Amount Large Laboratory Last Values WBC 5.3 10^3/uL (3.5-10.8) 05/20/19 05:55 RBC 3.88 10^6 /uL (4.18-5.48) L 05/20/19 05:55 Hgb 12.8 g/dL (14.0-18.0) L 05/20/19 05:55 Hct 36 % (42-52) L 05/20/19 05:55 MCV 94 fL (80-94) 05/20/19 05:55 MCH 33 pg (27-31) H 05/20/19 05:55 MCHC 35 g/dL (31-36) 05/20/19 05:55 RDW 13 % (10-15) 05/20/19 05:55 Plt Count 275 10^3/uL (150-450) 05/20/19 05:55 MPV 7.1 fL (7.4-10.4) L 05/20/19 05:55 Neut % (Auto) 52.0 % 05/20/19 05:55 Lymph % (Auto) 35.6 % 05/20/19 05:55 [place] % (Auto) 9.6 % 05/20/19 05:55 Eos % (Auto) 1.3 % 05/20/19 05:55 Baso % (Auto) 1.5 % 05/20/19 05:55 Absolute Neuts (auto) 2.7 10^3/ul (1.5-7.7) 05/20/19 05:55 Absolute Lymphs (auto) 1.9 10^3/ul (1.0-4.8) 05/20/19 05:55 Absolute Monos (auto) 0.5 10^3/ul (0-0.8) 05/20/19 05:55 Absolute Eos (auto) 0.1 10^3/ul (0-0.6) 05/20/19 05:55 Absolute Basos (auto) 0.1 10^3/ul (0-0.2) 05/20/19 05:55 Absolute Nucleated RBC 0.0 10^3/ul 05/20/19 05:55 Nucleated RBC % 0.3 05/20/19 05:55 ESR 20 mm/Hr (0-19) H 05/17/19 16:31 INR (Anticoag Therapy) 1.06 (0.82-1.09) 05/17/19 16:31 Sodium 138 mmol/L (135-145) 05/18/19 06:14 Potassium 4.0 mmol/L (3.5-5.0) 05/18/19 06:14 Chloride 105 mmol/L (101-111) 05/18/19 06:14 Carbon Dioxide 27 mmol/L (22-32) 05/18/19 06:14 Anion Gap 6 mmol/L (2-11) 05/18/19 06:14 BUN 12 mg/dL (6-24) 05/18/19 06:14 Creatinine 1.12 mg/dL (0.67-1.17) 05/18/19 06:14 Est GFR ( Amer) 82.7 (>60) 05/18/19 06:14 Est GFR (Non-Af Amer) 68.3 (>60) 05/18/19 06:14 BUN/Creatinine Ratio 10.7 (8-20) 05/18/19 06:14 Glucose 100 mg/dL (70-100) 05/18/19 06:14 Calcium 8.6 mg/dL (8.6-10.3) 05/18/19 06:14 C-Reactive Protein 5.10 mg/L (<8.01) 05/20/19 05:55
[2019-05-20] MEDS: Enoxaparin(*) 40 MG/0.4 ML SYR SUBCUT SCH (12:49)
[2019-05-20] MEDS: traZODone TAB* 100 MG PO SCH (21:23)
[2019-05-21] MEDS: Acetaminophen TAB* 325 MG PO SCH ×3 (05:20→23:30)
[2019-05-21] MEDS: oxyCODONE TAB* 5 MG TAB PO PRN ×5 (05:24→23:30)
[2019-05-21 05:47] LABS: ABS Basophils 0.1 10^3/ul (0-0.2); ABS Eosinophils 0.1 10^3/ul (0-0.6); ABS Lymphocytes 2.1 10^3/ul (1.0-4.8); ABS Monocytes 0.4 10^3/ul (0-0.8); ABS Neutrophils 2.3 10^3/ul (1.5-7.7); Eosinophil % 2.3 %; Hematocrit 37 % (42-52); Hemoglobin 13.2 g/dL (14.0-18.0); Lymphocyte % 41.8 %; Mean Corpuscular HGB Conc 36 g/dL (31-36); Mean Corpuscular Hemoglobin 33 pg (27-31); Mean Corpuscular Volume 92 fL (80-94); Mean Platelet Volume 6.9 fL (7.4-10.4); Nucleated Red Blood Cells % 0.3; Platelet Count 269 10^3/uL (150-450); Red Blood Count 4.03 10^6 /uL (4.18-5.48); Red Cell Distribution Width 12 % (10-15)
[2019-05-21] MEDS: HYDROmorphone TAB* 2 MG PO PRN ×3 (07:44→20:31)
[2019-05-21] MEDS: DULoxetine DR CAP* 30 MG CAP.DR PO SCH (08:36)
[2019-05-21] MEDS: DULoxetine DR CAP* 20 MG CAP.DR PO SCH (08:36)
[2019-05-21] MEDS: clonazePAM TAB(*) 0.5 MG PO SCH ×3 (08:37→20:31)
[2019-05-21] MEDS: Multivitamins/Minerals TAB PO SCH (08:37)
[2019-05-21] MEDS: Vitamin THERAPEUTIC TAB PO SCH (08:37)
[2019-05-21] MEDS: amLODIPine TAB* 5 MG PO SCH (08:37)
[2019-05-21] MEDS: Docusate CAP* 100 MG PO SCH ×2 (08:37→20:32)
[2019-05-21] MEDS: Enoxaparin(*) 40 MG/0.4 ML SYR SUBCUT SCH (11:42)
--- NOTE | 2019-05-21 13:06 | PN ---
Progress Note - Progress Note Date of Service: 05/21/19 SOAP: Subjective: ]Pt seen at bedside. He feels well without complaints. Denies CP, SOB, dizziness , nausea. Vac is on. Objective: []Gen: NAD, nontoxic appearing LLE: Prevena vac over incision is in place and on with good suction. No drainage in the vac container. No erythema surrounding the wound. Calf supple and nontender Vital Signs Temp 98.9 F 05/21/19 11:10 Pulse 92 05/21/19 11:10 Resp 18 05/21/19 11:43 BP 126/74 05/21/19 11:10 Pulse Ox 95 05/21/19 11:10 Intake & Output 05/20/19 05/21/19 05/21/19 18:59 06:59 18:59 Intake Total 1640 730 480 Output Total 1500 550 650 Balance 140 180 -170 Intake: Oral 1640 730 480 Output: Urine 650 Sotomayor 850 550 650 Other: # Bowel Movements 0 0 Estimated Stool Amount Large Assessment: []s/p BL Achilles tendon repairs Recent small wound dehiscence left ankle incision (somewhere between 5-6 weeks postop) now POD 2 sp Incision, irrigation, debridement, and drainage left ankle /heel wound, deep and Placement of negative pressure device, sponge, on top of skin, Prevena. Plan: - Ancef 1 g IV q 8, await cultures - nonweightbearing bilateral lower extremities - Lovenox 40 mg subcu daily. - Based on the culture and Gram stain results, we will either leave the Prevena on for 6 days until next Friday or we will remove it and take a peek at the skin sooner. As soon as the skin is confirmed to be healing well, free of infection or breakdown, cast in plantar flexion to acheive nonoperative healing of this rerupture. - Discussed vac with Dr Sanchez, will leave in place for now. - Will plan for DC back to [facility] on Friday - HR normalized.
[2019-05-21] MEDS: traZODone TAB* 100 MG PO SCH (20:30)
[2019-05-21] MEDS: Cyclobenzaprine TAB* 10 MG PO PRN (20:32)
[2019-05-22 05:49] LABS: ABS Basophils 0.1 10^3/ul (0-0.2); ABS Eosinophils 0.2 10^3/ul (0-0.6); ABS Lymphocytes 1.9 10^3/ul (1.0-4.8); ABS Monocytes 0.6 10^3/ul (0-0.8); ABS Neutrophils 2.8 10^3/ul (1.5-7.7); Eosinophil % 3.7 %; Hematocrit 37 % (42-52); Lymphocyte % 34.7 %; Mean Corpuscular HGB Conc 35 g/dL (31-36); Mean Corpuscular Hemoglobin 33 pg (27-31); Mean Corpuscular Volume 93 fL (80-94); Mean Platelet Volume 7.1 fL (7.4-10.4); Platelet Count 282 10^3/uL (150-450); Red Cell Distribution Width 12 % (10-15); White Blood Count 5.6 10^3/uL (3.5-10.8)
[2019-05-22] MEDS: oxyCODONE TAB* 5 MG TAB PO PRN ×4 (06:16→20:08)
[2019-05-22] MEDS: Cyclobenzaprine TAB* 10 MG PO PRN ×2 (06:17→11:16)
[2019-05-22] MEDS: Acetaminophen TAB* 325 MG PO SCH ×3 (06:48→21:57)
[2019-05-22] MEDS: DULoxetine DR CAP* 30 MG CAP.DR PO SCH (10:21)
[2019-05-22] MEDS: Vitamin THERAPEUTIC TAB PO SCH (10:21)
[2019-05-22] MEDS: DULoxetine DR CAP* 20 MG CAP.DR PO SCH (10:21)
[2019-05-22] MEDS: Multivitamins/Minerals TAB PO SCH (10:21)
[2019-05-22] MEDS: amLODIPine TAB* 5 MG PO SCH (10:21)
[2019-05-22] MEDS: Docusate CAP* 100 MG PO SCH ×2 (10:21→21:56)
[2019-05-22] MEDS: clonazePAM TAB(*) 0.5 MG PO SCH ×3 (10:22→21:57)
--- NOTE | 2019-05-22 12:06 | PN ---
Progress Note - Progress Note Date of Service: 05/22/19 Note: S/P bilateral Achilles tendon repairs: Patient resting comfortably in bed. Denies CP, SOB or dizziness. He is NWB on bilateral lower extremities. Sensation intact with 2+ DP pulses. Wound vac in place with good seal. Continue abx and Lovenox. Will continue to monitor with plan for DC to [place] Friday.
[2019-05-22] MEDS: Enoxaparin(*) 40 MG/0.4 ML SYR SUBCUT SCH (13:03)
[2019-05-22] MEDS: HYDROmorphone TAB* 2 MG PO PRN ×3 (13:12→23:51)
[2019-05-22] MEDS: traZODone TAB* 100 MG PO SCH (21:56)
[2019-05-23] MEDS: oxyCODONE TAB* 5 MG TAB PO PRN ×6 (00:05→20:22)
[2019-05-23] MEDS: Acetaminophen TAB* 325 MG PO SCH ×3 (06:09→22:12)
[2019-05-23] MEDS: DULoxetine DR CAP* 20 MG CAP.DR PO SCH (08:18)
[2019-05-23] MEDS: DULoxetine DR CAP* 30 MG CAP.DR PO SCH (08:18)
[2019-05-23] MEDS: Vitamin THERAPEUTIC TAB PO SCH (08:19)
[2019-05-23] MEDS: Multivitamins/Minerals TAB PO SCH (08:19)
[2019-05-23] MEDS: amLODIPine TAB* 5 MG PO SCH (08:19)
[2019-05-23] MEDS: Docusate CAP* 100 MG PO SCH ×2 (08:19→20:22)
[2019-05-23] MEDS: clonazePAM TAB(*) 0.5 MG PO SCH ×3 (08:19→20:21)
[2019-05-23] MEDS: HYDROmorphone TAB* 2 MG PO PRN ×4 (09:40→22:12)
--- NOTE | 2019-05-23 10:14 | PN ---
Progress Note - Progress Note Date of Service: 05/23/19 Note: Patient resting comfortably in bed without complaint. No CP or SOB. His right lower extremity is casted and left lower extremity has wound vac with good seal. Sensation is intact bilaterally and he is able to move the digits without pain. Brisk cap refill. Toes pink and warm. Patient mention Dr. Sanchez to cast the right side today. Plan for DC tomorrow to [facility] bed tomorrow.
[2019-05-23] MEDS: Enoxaparin(*) 40 MG/0.4 ML SYR SUBCUT SCH (12:09)
--- NOTE | 2019-05-23 15:18 | PN ---
Progress Note - Progress Note Date of Service: 05/23/19 SOAP: Subjective: Patient is comfortable, if bored. No pain. No fevers, sweats, chills. Patient provided more information about his fall at [facility]. He was being helped to bathroom by 1 rather than 2 assists and he fell and had left ankle pain, sudden. He had somehow not had pain with hopping on left foot in physical therapy. I spoke to the patient about continuing his antibiotics through his transfer to [facility] tomorrow in some form. He mentioned that he hadn't received antibiotics in several days. I was incredulous. Objective: RLE: - Cast in place LLE: - Incision c/d/i - Mild tenderness about the incision - NVID Selected Entries 05/22/19 05/22/19 05/22/19 11:03 15:40 20:24 Temperature 98.3 F 97.7 F 98.7 F Pulse Rate Respiratory Rate Blood Pressure (mmHg) O2 Sat by Pulse Oximetry 05/22/19 05/23/19 05/23/19 23:43 04:01 07:23 Temperature 97.9 F 97.9 F 97.6 F Pulse Rate Respiratory Rate Blood Pressure (mmHg) O2 Sat by Pulse Oximetry 05/23/19 11:43 Temperature 97.9 F Pulse Rate 88 Respiratory 15 Rate Blood Pressure 138/88 (mmHg) O2 Sat by Pulse 98 Oximetry Laboratory Tests 05/17/19 05/18/19 05/19/19 20:48 06:14 06:01 WBC Neut % (Auto) C-Reactive Protein 11.45 H 11.85 H 10.23 H 05/20/19 05/21/19 05/22/19 05:55 05:28 05:00 WBC 5.6 Neut % (Auto) 50.4 C-Reactive Protein 5.10 3.97 05/22/19 05:00 WBC Neut % (Auto) C-Reactive Protein 4.84 Assessment: POD 5 I&D L ankle wound dehiscence and Achilles rerupture s/p L ankle Achilles tendon repair 04/06/19 and R ankle Achilles tendon repair Plan: 1. IV antibiotics. I just checked [employer] medication dispensation and spoke with the pharmacy. The patient has not received Ancef since approximately midnight after his procedure, the midnight of 05/18/19 and 05/19/19. Every progress note from orthopedics and the ID service on 05/19/19 through has described the patient as being on Ancef IV antibiotics every 8 hours. Yet the patient has not received Ancef since several hours into the winery cellar hand of 05/19/19. The patient did not even receive 24 hours postoperatively. The PA with me the night of surgery correctly wrote in the paper transfer orders postoperatively for Ancef to be continued. I will now restart the IV antibiotics. I will discuss this case with nursing management and pharmacy. There is no sign of current infection, but this miscommunication is concerning. 2. Non-weight bearing bilateral lower extremities. 3. DVT prophylaxis with Lovenox. 4. Dispo planning. Likely to [facility]. I will see the patient in clinic at [facility] on 05/31/19. 5. Patient is hoping to have Sotomayor removed by urology service prior to discharge from hospital
[2019-05-23] MEDS: ceFAZolin 1 GM ADVAN(*) 1 GM in NS 0.9% 50 ML* 50 ML IVPB SCH ×2 (16:31→23:59)
[2019-05-23] MEDS: traZODone TAB* 100 MG PO SCH (20:21)
[2019-05-24] MEDS: oxyCODONE TAB* 5 MG TAB PO PRN ×4 (00:33→13:56)
[2019-05-24] MEDS: Acetaminophen TAB* 325 MG PO SCH ×2 (05:36→13:54)
--- NOTE | 2019-05-24 08:01 | DS ---
Orthopedic Discharge Summary - Discharge Summary Date of Admission:05/17/19 Date of Discharge: 05/24/19 Date of Surgery: 05/18/19 Attending Orthopedic Provider: Dr Almonte Pre-operative Diagnosis: Left lower extremity wound dehiscence Operative Procedure: 1. Incision, irrigation, debridement, and drainage left ankle/heel wound, deep. 2. Placement of negative pressure device, sponge, on top of skin, Prevena. Disposition of Patient: [facility] Home care vs Outpatient services: rehab Condition of Patient: stable DVT prophylaxis RX at discharge: [lovenox 40 mg sq qd History: VARUN CASAS is a 53 year old M with wound dehiscence Hospital Course: VARUN was admitted to [facility] on 05/17/19. Patient underwent a 1. Incision, irrigation, debridement, and drainage left ankle/heel wound, deep. 2. Placement of negative pressure device, sponge, on top of skin, Prevena without complication followed by a brief recovery in PACU and transfer to the Short Stay Surgical Unit in stable condition. physical therapy and occupational therapy also participated in this patients care. Post- op day 1: patient was alert and in no acute distress. Dressing was clean, dry and intact. Operative extremity dorsiflexion and plantarflexion intact, sensation intact to light touch distally, DP2+. Prevena vac suction well maintained. On 05/23 vac was removed, incision was CDI, casted in plantarflexion. 05/24/19 Denied CP, SOB, dizziness, nausea, ankle pain. He was deemed to be stable for DC back to [facility]. Our staff discussed xie with urology office, xie will be kept in place until patient is able to walk again. [facility] staff and urology will need to work out when this xie needs to be changed out/ removed entirely. He will need to be NWB and on keflex for 7 days after discharge. Home Medications Medication Instructions Recorded Confirmed Type DULoxetine DR MCELROY* [Cymbalta CAP*] 20 mg PO DAILY 05/12/15 05/17/[address] MCELROY* [Cymbalta CAP*] 30 mg PO DAILY 05/12/15 05/17/19 History Multivitamins/Minerals TAB* 1 tab PO QAM 05/12/15 05/17/19 History [Theragran/minerals TAB*] traZODone TAB* [Desyrel TAB*] 150 mg PO BEDTIME 05/12/15 05/17/19 History clonazePAM TAB(*) [Klonopin TAB(*)] 0.5 mg PO TID 05/20/15 05/17/19 History Albuterol HFA INHALER* [Ventolin 2 puff INH BID PRN 04/30/19 05/17/19 History HFA Inhaler*] LevoCETirizine TAB (NF) [Xyzal TAB 10 mg PO ONCE PRN 04/30/19 05/17/19 History (NF)] Enoxaparin(*) [Lovenox(*)] 40 mg SUBCUT Q24H syringe 05/10/19 05/17/19 Rx HYDROmorphone TAB* [Dilaudid TAB*] 2 mg PO Q4H PRN tab 05/10/19 05/17/19 Rx amLODIPine TAB* [Norvasc 5 mg TAB*] 5 mg PO DAILY tab 05/10/19 05/17/19 Rx Acetaminophen TAB* [Tylenol TAB*] 975 mg PO Q8HR tab 05/20/19 Rx Bisacodyl 10 mg SUPP [Dulcolax 10 mg CO DAILY PRN supp 05/20/19 Rx Supp*] Cyclobenzaprine TAB* [Flexeril 10 10 mg PO Q6H PRN tab 05/20/19 Rx MG TAB*] Docusate CAP* [Colace Cap*] 100 mg PO BID cap 05/20/19 Rx Enoxaparin(*) [Lovenox(*)] 40 mg SUBCUT Q24H syringe 05/20/19 Rx oxyCODONE TAB* [Roxycodone TAB 5 5 mg PO Q4H PRN tab 05/20/19 Rx mg*] oxyCODONE TAB* [Roxycodone TAB 5 10 mg PO Q4H PRN tab 05/20/19 Rx mg*] traMADol TAB* [Ultram*] 50 mg PO Q6HR PRN tab 05/20/19 Rx Cephalexin CAP* [Keflex CAP*] 500 mg PO TID #21 cap 05/24/19 Rx DC back to [facility] - keflex 500 mg every 8 hours for 7 more days starting 05/24/19 - nonweightbearing bilateral lower extremities - Keep splints clean, dry and intact - Lovenox 40 mg subcu daily x 4 weeks post op - follow up with Dr Almonte 06/02 at [facility] Discharge Instructions following Orthopedic Surgery: Call Orthopedic office for: * Increased drainage * Redness * Increased pain * Fever Go to ER with shortness of breath or chest pain. Diet: * Regular diet * Increase fluids and fiber to prevent constipation. * Continue to use stool softeners, call office if no bowel motion within 48 hours. Medications See Home Medication List in your packet for medications that you should take after discharge. FOLLOW UP: Follow up with [Daniel] 06/02/19 at [facility], call for appointment Please call our office with any questions or concerns ([phone]) No Rx due to DC to [facility]
[2019-05-24] MEDS: HYDROmorphone TAB* 2 MG PO PRN (08:32)
[2019-05-24] MEDS: ceFAZolin 1 GM ADVAN(*) 1 GM in NS 0.9% 50 ML* 50 ML IVPB SCH (08:36)
[2019-05-24] MEDS: Docusate CAP* 100 MG PO SCH (08:45)
[2019-05-24] MEDS: DULoxetine DR CAP* 20 MG CAP.DR PO SCH (08:45)
[2019-05-24] MEDS: DULoxetine DR CAP* 30 MG CAP.DR PO SCH (08:45)
[2019-05-24] MEDS: clonazePAM TAB(*) 0.5 MG PO SCH ×2 (08:45→13:55)
[2019-05-24] MEDS: Multivitamins/Minerals TAB PO SCH (08:45)
[2019-05-24] MEDS: Vitamin THERAPEUTIC TAB PO SCH (08:45)
[2019-05-24] MEDS: amLODIPine TAB* 5 MG PO SCH (08:45)
[2019-05-24 11:13] VITALS: BP 136/82
--- NOTE | 2019-05-24 11:16 | PN ---
Progress Note - Progress Note Date of Service: 05/24/19 Note: Pt seen at bedside today, no complaints. Casts on BL LE comfortable. Able to f/ e MTPs, sensation intact to light touch distally, cap refill less than two seconds distally. Calf above casts supple and nontender without erythema. WIll keep xie for DC per urology. Will DC back to [facility] today on lovenox x 4 weeks post op and keflex x 7 days post op
[2019-05-24] MEDS ORDERED: oxyCODONE TAB* 5 MG TAB ONE (13:44)
[2019-05-24] MEDS ORDERED: oxyCODONE TAB* 5 MG TAB PO ONE (13:45)
[2019-05-24] MEDS: Enoxaparin(*) 40 MG/0.4 ML SYR SUBCUT SCH (13:54)
== END 2019-05-24 13:15 | DRG 909 ==
LOC: OBSVTOIN 12:16 → SSU 12:16 → UNDOADMOB 16:06
PROVIDERS: ADMIT Orthopaedic Surgery; ATTEND Orthopaedic Surgery
PROC: 0LBT0ZZ Excision of Left Ankle Tendon, Open Approach (ICD-10-PCS; principal; 2019-05-18 17:00)
DX: T81.32XA Disruption of internal operation (surgical) wound, not elsewhere classified, initial encounter (principal); M45.9 Ankylosing spondylitis of unspecified sites in spine; J45.909 Unspecified asthma, uncomplicated; L20.9 Atopic dermatitis, unspecified; M79.7 Fibromyalgia; M25.512 Pain in left shoulder; M75.52 Bursitis of left shoulder; S86.012A Strain of left Achilles tendon, initial encounter; X58.XXXA Exposure to other specified factors, initial encounter; Y92.129 Unspecified place in nursing home as the place of occurrence of the external cause; Z88.0 Allergy status to penicillin; Z88.5 Allergy status to narcotic agent; Z79.51 Long term (current) use of inhaled steroids; Z79.899 Other long term (current) drug therapy; Z83.3 Family history of diabetes mellitus; Z80.0 Family history of malignant neoplasm of digestive organs; Z82.49 Family history of ischemic heart disease and other diseases of the circulatory system
CPT/HCPCS: 36415; 71046; 80048; 85025; 85610; 85652; 86140; 87070; 87073; 87077; 87205; 87640; 87641; 93005; A9270-GY; A9272-GY; J0690; J1100; J1170; J1644; J1650; J2250; J2270; J2405; J2704; J3010